=== PATIENT | female | born 1945 | race Caucasian/White ===

== ENCOUNTER → 2017-10-13 08:34 | Outpatient (CLI) | payer MEDICARE, OTHER, SELFPAY ==
[2017-10-13 09:22] LABS: Add Manual Diff / Slide Review NO; Basophils Percent Auto 0.8 % (0-2); Hematocrit 42.1 % (36-46); Hemoglobin 14.4 g/dL (12.0-16.0); Lymphocytes Percent Auto 16.7 % (25-40); Mean Corpuscular HGB Conc 34.2 % (30-36); Mean Corpuscular Hemoglobin 32.8 PG (26-34); Mean Corpuscular Volume 95.9 fL (80-100); Monocytes Percent Auto 6.3 % (3-14); Neutrophils Absolute Auto 4700 /uL (3000-5900); Neutrophils Percent Auto 75.2 % (50-75); Platelet Count 189 X10^3/uL (150-400); Red Blood Cell Count 4.39 X10^6/uL (4.0-5.2); Red Cell Distribution Width 13.5 % (11.6-14.8); White Blood Cell Count 6.2 X10^3/uL (4.5-11.0)
[2017-10-13 09:45] LABS: Alanine Aminotransferase 13 IU/L (9-52); Albumin 4.2 g/dL (3.5-5.0); Albumin Globulin Ratio 1.3 (1.0-2.8); Alkaline Phosphatase 62 U/L (38-126); Aspartate Aminotransferase 14 IU/L (14-36); BUN Creatinine Ratio 23.6 (6-22); Blood Urea Nitrogen 33 mg/dL (7-17); Calcium 8.9 mg/dL (8.4-10.2); Carbon Dioxide 29 mmol/L (22-32); Chloride 103 mmol/L (98-107); Cholesterol 217 mg/dL (140-199); Estimated Glomerular Filt Rate 36.9 mL/min (>60); Globulin 3.3 g/dL (1.7-4.1); Glucose 97 mg/dL (80-110); HDL Cholesterol 49 mg/dL (40-60); HEMOLYSIS < 15 (0-50); LDL Cholesterol Calculated 144 mg/dL (<100); Potassium 3.8 mmol/L (3.4-5.1); Sodium 142 mmol/L (137-145); Total Protein 7.5 g/dL (6.3-8.2); Triglycerides 118 mg/dL (35-150)
[2017-10-13 10:00] LABS: Free T4, Direct Thyroxine 1.19 ng/dL (0.78-2.19)
== END ==
PROVIDERS: Family Provider Family Medicine; PCP Family Medicine; Visit Provider Family Medicine
DX: E03.9 Hypothyroidism, unspecified (principal); N18.9 Chronic kidney disease, unspecified
CPT/HCPCS: 36415; 80053; 80061; 84439; 85025

== ENCOUNTER → 2017-12-01 13:00 | Outpatient (CLI) | payer MEDICARE, OTHER, SELFPAY ==
--- NOTE | 2017-12-01 | DI.MG.S_ITS ---
BILATERAL DIGITAL SCREENING MAMMOGRAM 3D/2D WITH CAD: 12/01/2017 CLINICAL: Routine screening. Comparison is made to exams dated: 10/20/2016 mammogram, 10/20/2015 mammogram, and 10/13/2014 mammogram - [facility]. The tissue of both breasts is heterogeneously dense. This may lower the sensitivity of mammography. Current study was also evaluated with a Computer Aided Detection (CAD) system. There is a 0.6 cm span of grouped linear calcifications in the left breast middle depth outer region seen on the craniocaudal view only. No other significant masses, calcifications, or other findings are seen in either breast. IMPRESSION: INCOMPLETE: NEEDS ADDITIONAL IMAGING EVALUATION The grouped linear calcifications in the left breast are indeterminate. Additional views with possible ultrasound are recommended. This exam was interpreted at Station ID: [id number]. NOTE: For mammograms, a report in lay terms will be sent to the patient. Approximately 15% of breast malignancies will not be visualized mammographically. In the management of a palpable breast mass, a negative mammogram must not discourage biopsy of a clinically suspicious lesion. Electronically Signed By: Salvador Alex M.D. ecl/:12/01/2017 20:41:43 copy to: Donna Toussaitn M.D. letter sent: Additional Imaging Needed ACR BI-RADS Category 0: Incomplete 3340F
== END ==
PROVIDERS: PCP Family Medicine; Visit Provider Family Medicine
DX: Z12.31 Encounter for screening mammogram for malignant neoplasm of breast (principal)
CPT/HCPCS: 77063; 77067

== ENCOUNTER → 2017-12-27 14:30 | Outpatient (CLI) | payer MEDICARE, OTHER, SELFPAY ==
--- NOTE | 2017-12-27 14:33 | DI.US.S_ITS ---
ULTRASOUND OF LEFT BREAST: 12/27/2017 CLINICAL: Follow up from addtional views. Comparison is made to exams dated: 12/27/2017 mammogram, 12/01/2017 mammogram, and 10/20/2016 mammogram - [facility]. Real-time and Doppler ultrasound of the left breast were performed. Vallecillo scale images of the real-time examination were reviewed. Targeted ultrasound was performed of the lower left breast. No underlying breast mass or abnormality is identified. No ultrasound correlate for the 1.0 cm focal asymmetry seen in the lower left breast central and inferior to the nipple at posterior depth along the 6 o'clock radian on diagnostic mammography. IMPRESSION: PROBABLY BENIGN - FOLLOW-UP RECOMMENDED No ultrasound correlate for the 1.0 cm focal asymmetry seen in the lower left breast central and inferior to the nipple along the 6 o'clock radian on diagnostic mammography. A follow-up diagnostic mammogram in 6 months is recommended to demonstrate stability. This exam was interpreted at Station ID: [id number]. Electronically Signed By: Salvador Alex M.D. ecl/:12/28/2017 04:41:03 copy to: Donna Toussaint M.D. letter sent: Followup Recommended Ultrasound BI-RADS: 3 Probably benign
--- NOTE | 2017-12-27 14:33 | DI.MG.S_ITS ---
UNILATERAL LEFT DIGITAL DIAGNOSTIC MAMMOGRAM 3D/2D WITH ADDITIONAL VIEWS: 12/27/2017 CLINICAL: Additional evaluation requested from prior study. Comparison is made to exams dated: 12/01/2017 mammogram, 10/20/2016 mammogram, and 10/20/2015 mammogram - [facility]. The tissue of the left breast is heterogeneously dense. This may lower the sensitivity of mammography. Previously noted linear calcifications in the left breast middle depth outer region seen on the craniocaudal view only on comparison screening mammogram corresponds to vascular calcifications on additional views. There is a 1.0 cm focal asymmetry in the lower left breast central and inferior to the nipple along the 6 o'clock radian. No other significant masses, calcifications, or other findings are seen in the breast. IMPRESSION: INCOMPLETE: NEEDS ADDITIONAL IMAGING EVALUATION 1) Previously noted linear calcifications in the left breast middle depth outer region seen on the craniocaudal view only on comparison screening mammogram corresponds to vascular calcifications on additional views. 2) There is a 1.0 cm focal asymmetry in the lower left breast central and inferior to the nipple along the 6 o'clock radian. A targeted ultrasound is recommended for further evaluation. This exam was interpreted at Station ID: [id number]. NOTE: For mammograms, a report in lay terms will be sent to the patient. Approximately 15% of breast malignancies will not be visualized mammographically. In the management of a palpable breast mass, a negative mammogram must not discourage biopsy of a clinically suspicious lesion. Electronically Signed By: Salvador Alex M.D. ecl/:12/28/2017 04:38:35 copy to: Donna Toussaint M.D. letter sent: Additional Imaging Needed ACR BI-RADS Category 0: Incomplete 3340F
== END ==
PROVIDERS: Visit Provider Family Medicine
DX: R92.8 Other abnormal and inconclusive findings on diagnostic imaging of breast (principal)
CPT/HCPCS: 76642; 77065; G0279

== ENCOUNTER → 2018-06-27 10:33 | Outpatient (CLI) | payer MEDICARE, OTHER, SELFPAY ==
[2018-06-27 12:13] LABS: HEMOLYSIS < 15 (0-50)
[2018-06-27 12:18] LABS: Iron 134 ug/dL (37-170)
[2018-06-27 12:30] LABS: Percent Iron Saturation 44 % (15-50); Total Iron Binding Capacity 303 ug/dL (265-497); Transferrin 236 mg/dL (206-381)
[2018-06-27 13:06] LABS: Thyroid Stimulating Hormone 1.35 uIU/mL (0.47-4.68)
== END ==
PROVIDERS: PCP Family Medicine; Visit Provider Family Medicine
DX: L65.9 Nonscarring hair loss, unspecified (principal); E03.9 Hypothyroidism, unspecified
CPT/HCPCS: 36415; 82728; 83540; 83550; 84443

== ENCOUNTER → 2018-07-03 12:34 | Outpatient (CLI) | payer MEDICARE, OTHER, SELFPAY ==
--- NOTE | 2018-07-03 | DI.MG.S_ITS ---
UNILATERAL LEFT DIGITAL DIAGNOSTIC MAMMOGRAM 3D/2D SHORT-TERM FOLLOW-UP: 07/03/2018 CLINICAL: Patient returns for a 6 month follow up of the left breast. Comparison is made to exams dated: 12/27/2017 ultrasound, 12/27/2017 mammogram, and 12/01/2017 mammogram - [facility]. The tissue of left breast is heterogeneously dense. This may lower the sensitivity of mammography. There is an oval equal density asymmetry with an indistinct margin in the left breast central to the nipple posterior depth. This is not significantly changed. No other significant masses or calcifications are seen in the breast. IMPRESSION: PROBABLY BENIGN The oval equal density asymmetry in the left breast is probably benign. A follow-up in 6 months is recommended. A follow-up mammogram in 6 months is recommended to demonstrate stability at the time of screening mammograph of the right breast. This exam was interpreted at Station ID: [id number]. NOTE: For mammograms, a report in lay terms will be sent to the patient. Approximately 15% of breast malignancies will not be visualized mammographically. In the management of a palpable breast mass, a negative mammogram must not discourage biopsy of a clinically suspicious lesion. Electronically Signed By: José Farfan M.D. ddradha/:07/03/2018 13:33:16 copy to: Donna Toussaint M.D. letter sent: Followup Recommended ACR BI-RADS Category 3: Probably benign 3343F
== END ==
PROVIDERS: PCP Family Medicine; Visit Provider Family Medicine
DX: R92.8 Other abnormal and inconclusive findings on diagnostic imaging of breast (principal); N64.89 Other specified disorders of breast
CPT/HCPCS: 77065; G0279

== ENCOUNTER → 2018-09-18 12:53 | Outpatient (CLI) | payer MEDICARE, OTHER, SELFPAY ==
[2018-09-18 14:01] LABS: BUN Creatinine Ratio 21.4 (6-22); Blood Urea Nitrogen 30 mg/dL (7-17); Calcium 9.3 mg/dL (8.4-10.2); Carbon Dioxide 29 mmol/L (22-32); Chloride 101 mmol/L (98-107); Estimated Glomerular Filt Rate 36.8 mL/min (>60); Glucose 96 mg/dL (80-110); HEMOLYSIS < 15 (0-50); Potassium 4.5 mmol/L (3.4-5.1); Sodium 139 mmol/L (137-145)
[2018-09-18 15:24] LABS: Creatinine Urine Random 112.4 mg/dL
[2018-09-18 15:30] LABS: Microalbumi Creatinin Ratio Ur 25.8 ug/mg CR (<30); Microalbumin Urine Random 2.9 mg/dL (0-1.6)
== END ==
PROVIDERS: PCP Family Medicine; Visit Provider Family Medicine
DX: I10 Essential (primary) hypertension (principal)
CPT/HCPCS: 36415; 80048; 82043; 82570

== ENCOUNTER → 2018-09-28 12:35 | Outpatient (CLI) | payer MEDICARE, OTHER, SELFPAY ==
--- NOTE | 2018-09-28 12:37 | DI.MRI.S_ITS ---
PROCEDURE: MR STROKE Pre- and post-contrast brain MRI, non-contrast brain MR angiogram, pre- and postcontrast neck MR angiogram INDICATIONS: dizziness, unsteady on feet, vision changes TECHNIQUE: Brain: Noncontrast axial T1 spin echo, axial T2 fast spin echo, sagittal and axial FLAIR, coronal T2 fast spin echo, axial gradient echo, axial diffusion and ADC through the brain. After the administration of contrast, axial 3D VIBE of the cranial vasculature and brain. Brain MRA: Non-contrast 3-D time of flight MR angiogram, with multiple qyxgrdq-mnuufsakj-qesmvvidsj (MIP) reformats performed. Neck MRA: Axial and sagittal TruFISP through the neck. Coronal dynamic MR angiogram during administration of contrast in the arterial and venous phases, with 3-dimenstional eircsvn-lqcvriyly-jevsqiiats (MIP) reformats constructed from subtraction images. COMPARISON: [facility], , CAROTID ARTERY DOPPLER BILAT, 09/14/2015, 10:20. FINDINGS: Image quality: Diagnostic BRAIN: CSF spaces: Ventricles are normal in size and shape. Basal cisterns are patent. No extra-axial fluid collections. Brain: No intracranial bleeds or mass effects. Vallecillo-white matter interface is normal. Diffusion weighted images show no acute ischemic insults. Brainstem appears normal. Normal intravascular flow voids are present. No abnormal intracranial enhancement. Skull and face: Calvarial marrow signal is normal. Orbits appear normal. Sinuses: Sinuses and mastoids are clear. BRAIN MR ANGIOGRAM: Anterior circulation: Intracranial internal carotid arteries are normal in size and enhancement. The flow within the paired anterior cerebral arteries is normal and symmetric. The flow within the middle cerebral arteries is normal and symmetric. The anterior communicating artery is only faintly seen. No stenoses, occlusions, or aneurysms. Posterior circulation: The visualized portions of the vertebral arteries demonstrate normal caliber, and join to form a normal appearing basilar artery. The flow within the posterior cerebral arteries is normal and symmetric. No stenoses, occlusions, or aneurysms. NECK MR ANGIOGRAM: Carotids: Great vessels demonstrate a conventional anatomy as they arise from the aortic arch. The origins of the common carotid arteries appear patent. The calibers and courses of both common carotid arteries are normal. The bifurcation regions appear normal bilaterally. The internal carotid arteries demonstrate normal course and caliber. Posterior circulation: The origins of the vertebral arteries appear patent. More superior portions of both vertebral arteries demonstrate normal course and caliber, and join to form a normal appearing basilar artery. Miscellaneous: Subclavian arteries appear patent. Pre-contrast images through the neck show no soft tissue abnormalities. IMPRESSION: BRAIN MRI: No findings of acute or subacute infarction can be seen. Note is made of age-appropriate brain parenchymal volume loss and chronic small vessel ischemic changes. No masses or abnormal enhancement can be seen. BRAIN MR ANGIOGRAM: No significant abnormality is seen of the intracranial arteries. NECK MR ANGIOGRAM: Within the arteries of the neck, no hemodynamically significant stenosis can be seen. Dictated by: Tod Connor M.D. on 09/28/2018 at 12:57 Approved by: Tod Connor M.D. on 09/28/2018 at 13:00
== END ==
PROVIDERS: PCP Family Medicine; Visit Provider Family Medicine
DX: R42 Dizziness and giddiness (principal); R26.81 Unsteadiness on feet; H53.9 Unspecified visual disturbance
CPT/HCPCS: 70548; 70553; A9579

== ENCOUNTER → 2018-12-13 12:49 | Outpatient (CLI) | payer MEDICARE, OTHER, SELFPAY ==
[2018-12-13 13:25] LABS: Add Manual Diff / Slide Review NO; Basophils Absolute Auto 100 /uL (0-100); Basophils Percent Auto 0.9 % (0-2); Eosinophils Absolute Auto 0 /uL (0-450); Eosinophils Percent Auto 0.6 % (2-4); Hemoglobin 14.2 g/dL (12.0-16.0); Lymphocytes Absolute Auto 1100 /uL (1100-4500); Lymphocytes Percent Auto 19.8 % (25-40); Mean Corpuscular HGB Conc 34.8 % (30-36); Mean Corpuscular Hemoglobin 32.7 PG (26-34); Mean Corpuscular Volume 94.2 fL (80-100); Monocytes Absolute Auto 400 /uL (0-900); Monocytes Percent Auto 6.8 % (3-14); Neutrophils Absolute Auto 4200 /uL (1500-7000); Neutrophils Percent Auto 71.9 % (50-75); Platelet Count 172 X10^3/uL (150-400); Red Blood Cell Count 4.35 X10^6/uL (4.0-5.2); Red Cell Distribution Width 14.2 % (11.6-14.8); White Blood Cell Count 5.8 X10^3/uL (4.5-11.0)
[2018-12-13 16:17] LABS: HEMOLYSIS < 15 (0-50); Iron 114 ug/dL (37-170)
[2018-12-13 16:20] LABS: Alanine Aminotransferase 15 IU/L (9-52); Albumin 4.2 g/dL (3.5-5.0); Albumin Globulin Ratio 1.4 (1.0-2.8); Alkaline Phosphatase 69 U/L (38-126); Aspartate Aminotransferase 15 IU/L (14-36); BUN Creatinine Ratio 23.8 (6-22); Blood Urea Nitrogen 31 mg/dL (7-17); Calcium 9.2 mg/dL (8.4-10.2); Carbon Dioxide 27 mmol/L (22-32); Chloride 102 mmol/L (98-107); Globulin 2.9 g/dL (1.7-4.1); Glucose 75 mg/dL (80-110); HEMOLYSIS < 15 (0-50); Potassium 4.7 mmol/L (3.4-5.1); Sodium 140 mmol/L (137-145); Total Protein 7.1 g/dL (6.3-8.2)
[2018-12-13 16:30] LABS: Percent Iron Saturation 40 % (15-50); Total Iron Binding Capacity 285 ug/dL (265-497); Transferrin 237 mg/dL (206-381)
[2018-12-13 16:34] LABS: T4 Total Thyroxine 8.45 ug/dL (5.5-11.0)
[2018-12-13 16:51] LABS: Ferritin 41.9 ng/mL (11.1-264)
[2018-12-13 17:05] LABS: Vitamin B12 > 1000 pg/mL (239-931)
== END ==
PROVIDERS: PCP Family Medicine; Visit Provider Physician Assistant
DX: L65.9 Nonscarring hair loss, unspecified (principal)
CPT/HCPCS: 36415; 80053; 82607; 82728; 83519; 83540; 83550; 84436; 85025

== ENCOUNTER → 2019-01-14 10:05 | Outpatient (CLI) | payer MEDICARE, OTHER, SELFPAY ==
--- NOTE | 2019-01-14 10:09 | DI.MG.S_ITS ---
BILATERAL DIGITAL DIAGNOSTIC MAMMOGRAM 3D/2D: 01/14/2019 CLINICAL: Patient returns for a 6 month follow up of the left breast. Due for bilateral imaging. Comparison is made to exams dated: 07/03/2018 mammogram, 12/27/2017 mammogram, and 12/01/2017 mammogram - [facility]. The tissue of both breasts is heterogeneously dense. This may lower the sensitivity of mammography. There is an oval equal density asymmetry in the left breast central to the nipple posterior depth. This is not significantly changed and was not seen on the prior ultrasound. No other significant masses, calcifications, or other findings are seen in either breast. IMPRESSION: PROBABLY BENIGN The oval equal density asymmetry in the left breast remains stable and is probably benign. A follow-up mammogram in 12 months is recommended. This exam was interpreted at Station ID: [id number]. NOTE: For mammograms, a report in lay terms will be sent to the patient. Approximately 15% of breast malignancies will not be visualized mammographically. In the management of a palpable breast mass, a negative mammogram must not discourage biopsy of a clinically suspicious lesion. Electronically Signed By: Chava Lopez M.D. aty/:01/14/2019 10:58:58 copy to: Donna Toussaint M.D. letter sent: Followup Recommended ACR BI-RADS Category 3: Probably benign 3343F
== END ==
PROVIDERS: PCP Family Medicine; Visit Provider Family Medicine
DX: R92.8 Other abnormal and inconclusive findings on diagnostic imaging of breast (principal); N64.89 Other specified disorders of breast
CPT/HCPCS: 77066; G0279

== ENCOUNTER → 2019-10-18 08:02 | Outpatient (CLI) | payer MEDICARE, OTHER, SELFPAY ==
[2019-10-18 09:37] LABS: Add Manual Diff / Slide Review NO; Basophils Absolute Auto 100 /uL (0-100); Basophils Percent Auto 1.1 % (0-2); Eosinophils Absolute Auto 100 /uL (0-450); Eosinophils Percent Auto 1.5 % (2-4); Hematocrit 39.6 % (36-46); Hemoglobin 13.2 g/dL (12.0-16.0); Lymphocytes Absolute Auto 1300 /uL (1100-4500); Lymphocytes Percent Auto 21.9 % (25-40); Mean Corpuscular HGB Conc 33.4 % (30-36); Mean Corpuscular Hemoglobin 31.5 PG (26-34); Mean Corpuscular Volume 94.2 fL (80-100); Monocytes Absolute Auto 400 /uL (0-900); Monocytes Percent Auto 6.2 % (3-14); Neutrophils Absolute Auto 4200 /uL (1500-7000); Neutrophils Percent Auto 69.3 % (50-75); Platelet Count 186 X10^3/uL (150-400); Red Cell Distribution Width 13.2 % (11.6-14.8)
[2019-10-18 09:52] LABS: Alanine Aminotransferase 10 IU/L (<35); Albumin Globulin Ratio 1.5 (1.0-2.8); Alkaline Phosphatase 62 U/L (38-126); Aspartate Aminotransferase 14 IU/L (14-36); BUN Creatinine Ratio 20.6 (6-22); Bilirubin Total 1.1 mg/dL (0.2-1.3); Blood Urea Nitrogen 29 mg/dL (7-17); Calcium 8.8 mg/dL (8.4-10.2); Carbon Dioxide 29 mmol/L (22-32); Chloride 102 mmol/L (98-107); Cholesterol 194 mg/dL (140-199); Estimated Glomerular Filt Rate 36.4 mL/min (>60); Globulin 2.7 g/dL (1.7-4.1); Glucose 93 mg/dL (80-110); HDL Cholesterol 48 mg/dL (40-60); HEMOLYSIS < 15 (0-50); LDL Cholesterol Calculated 121 mg/dL (<100); Potassium 4.4 mmol/L (3.4-5.1); Sodium 136 mmol/L (137-145); Total Protein 6.7 g/dL (6.3-8.2); Triglycerides 124 mg/dL (35-150)
[2019-10-18 10:14] LABS: Thyroid Stimulating Hormone < 0.015 uIU/mL (0.47-4.68)
[2019-10-18 10:30] LABS: Creatinine Urine Random 96.7 mg/dL
[2019-10-18 10:31] LABS: Microalbumi Creatinin Ratio Ur 19.6 ug/mg CR (<30); Microalbumin Urine Random 1.9 mg/dL (0-1.6)
== END ==
PROVIDERS: PCP Family Medicine; Referring Provider Family Medicine; Visit Provider Family Medicine
DX: E03.9 Hypothyroidism, unspecified (principal); I10 Essential (primary) hypertension; N18.9 Chronic kidney disease, unspecified; Z86.19 Personal history of other infectious and parasitic diseases
CPT/HCPCS: 36415; 80053; 80061; 82043; 82570; 84443; 85025

== ENCOUNTER → 2019-12-09 08:41 | Outpatient (CLI) | payer MEDICARE, OTHER, SELFPAY ==
[2019-12-09 12:08] LABS: Free T3, Triiodothyronine Free 2.62 pg/mL (2.77-5.27); Free T4, Direct Thyroxine 1.57 ng/dL (0.78-2.19)
[2019-12-09 12:22] LABS: Thyroid Stimulating Hormone 0.997 uIU/mL (0.47-4.68)
== END ==
PROVIDERS: PCP Family Medicine; Referring Provider Family Medicine; Visit Provider Family Medicine
DX: E03.9 Hypothyroidism, unspecified (principal)
CPT/HCPCS: 36415; 84439; 84443; 84481

== ENCOUNTER → 2019-12-31 10:30 | Outpatient (CLI) | payer MEDICARE, OTHER, SELFPAY ==
--- NOTE | 2019-12-31 10:32 | DI.RAD.S_ITS ---
PROCEDURE: XR LUMBAR SPINE 2-3V INDICATIONS: back stiffness TECHNIQUE: 3 views of the lumbar spine were acquired. COMPARISON: None. FINDINGS: Bones: 5 [id number] vertebrae are present. There is normal bony alignment. Moderate to severe disc space narrowing is present at L2-3, L5-S1. Bridging anterior osteophytes are present at L2-3, L3-4. Moderate foraminal narrowing is noted at L5-S1. No vertebral body compression fractures. No suspicious bony lesions. Soft tissues: Overlying bowel gas pattern is normal. No suspicious soft tissue calcifications. IMPRESSION: Degenerative changes as above. Dictated by: Risa Cooper M.D. on 12/31/2019 at 16:18 Approved by: Risa Cooper M.D. on 12/31/2019 at 16:19
--- NOTE | 2019-12-31 10:32 | DI.RAD.S_ITS ---
PROCEDURE: XR SACRUM COCCYX MIN 2V INDICATIONS: back stiffness TECHNIQUE: 3 views of the sacrum and coccyx acquired. COMPARISON: None. FINDINGS: Bones: No fractures or dislocations. No suspicious bony lesions. Soft tissues: Visualized bowel gas pattern is normal. No suspicious soft tissue densities. IMPRESSION: No visualized acute fracture or dislocation. However, if clinical concern and/or pain persist, short interval imaging followup in 7-10 days is recommended, as occult injury cannot be definitively excluded. Dictated by: Risa Cooper M.D. on 12/31/2019 at 16:19 Approved by: Risa Cooper M.D. on 12/31/2019 at 16:19
== END ==
PROVIDERS: PCP Family Medicine; Referring Provider Family Medicine; Visit Provider Family Medicine
DX: M54.5 Low back pain (principal); M47.816 Spondylosis without myelopathy or radiculopathy, lumbar region; M53.80 Other specified dorsopathies, site unspecified
CPT/HCPCS: 72100; 72220

== ENCOUNTER → 2020-01-11 14:55 | Outpatient (CLI) | payer MEDICARE, OTHER, SELFPAY ==
--- NOTE | 2020-01-11 15:52 | DI.MRI.S_ITS ---
PROCEDURE: MR LUMBAR SPINE WO CON INDICATIONS: worsening low back pain TECHNIQUE: Noncontrast sagittal T1 spin echo and T2 fast echo, sagittal STIR, axial T1 and T2 fast spin echo through the lumbar spine. In cases with scoliosis, additional coronal T2 fast spin echo may be performed. COMPARISON: [facility], CR, XR LUMBAR SPINE 2-3V, 12/31/2019, 9:30. FINDINGS: Image quality: Excellent. Alignment and Curvature: 5 lumbar type vertebral bodies are present by plain film. There is mild grade 1 retrolisthesis of L1 on L2, L2 on L3, and L3 on L4. Bone Marrow: Marrow is of normal overall signal. No acute vertebral body compression fractures. Minimal reactive signal within the endplates adjacent to the L1-L2, L2-L3, L3-L4, L4-L5, and L5-S1 intervertebral discs. Spinal Cord: Conus medullaris terminates at the lower L1 level. Visualized cord demonstrates normal signal and size. Paraspinous Soft Tissues: No paravertebral masses. L1-L2: Mild disc height loss and desiccation. Mild diffuse disc bulge. Mild facet and ligamentum flavum hypertrophy. Mild epidural lipomatosis. Mild canal stenosis. No foraminal stenosis. L2-L3: Moderate disc height loss and desiccation. Mild diffuse disc bulge. Mild facet and ligamentum flavum hypertrophy. Mild epidural lipomatosis. Mild canal stenosis. Mild bilateral foraminal stenosis. L3-L4: Moderate disc height loss and desiccation. Mild diffuse disc bulge. Mild facet and ligamentum flavum hypertrophy. Mild epidural lipomatosis. Mild canal stenosis. Mild bilateral foraminal stenosis. L4-L5: Moderate disc height loss and desiccation. Mild diffuse disc bulge. Mild facet and ligamentum flavum hypertrophy. Moderate canal stenosis. Mild bilateral foraminal stenosis. L5-S1: Mild disc height loss and desiccation. Mild diffuse disc bulge. Mild facet hypertrophy bilaterally. Mild canal stenosis. Mild bilateral foraminal stenosis. IMPRESSION: 1. Multilevel degenerative disc and facet disease, as well as ligamentum flavum hypertrophy and epidural lipomatosis. 2. Multilevel canal stenosis, worst at L4-L5, where there is moderate canal stenosis. 3. Mild multilevel foraminal stenosis. Dictated by: Andrew eRnner M.D. on 01/13/2020 at 15:17 Approved by: Andrew Renner M.D. on 01/13/2020 at 15:21
== END ==
PROVIDERS: PCP Family Medicine; Referring Provider Family Medicine; Visit Provider Family Medicine
DX: M54.5 Low back pain (principal); M51.36 Other intervertebral disc degeneration, lumbar region; M51.37 Other intervertebral disc degeneration, lumbosacral region; M48.061 Spinal stenosis, lumbar region without neurogenic claudication; M48.07 Spinal stenosis, lumbosacral region; E88.2 Lipomatosis, not elsewhere classified
CPT/HCPCS: 72148

== ENCOUNTER → 2020-01-15 13:23 | Outpatient (CLI) | payer MEDICARE, OTHER, SELFPAY ==
--- NOTE | 2020-01-15 13:28 | DI.MG.S_ITS ---
BILATERAL DIGITAL DIAGNOSTIC MAMMOGRAM 3D/2D SHORT-TERM FOLLOW-UP: 01/15/2020 CLINICAL: Short term follow up of the left breast, due for bilateral imaging. Comparison is made to exams dated: 01/14/2019 mammogram, 07/03/2018 mammogram, 12/27/2017 mammogram, and 12/01/2017 mammogram - [facility]. The tissue of both breasts is heterogeneously dense. This may lower the sensitivity of mammography. There is an oval equal density asymmetry in the left breast central to the nipple posterior depth. This is not significantly changed and was not seen on the prior ultrasound. No other significant masses, calcifications, or other findings are seen in either breast. IMPRESSION: BENIGN The oval equal density asymmetry in the left breast is probably benign. There is no mammographic evidence of malignancy. Return to annual screening schedule is recommended. This exam was interpreted at Station ID: [id number]. NOTE: For mammograms, a report in lay terms will be sent to the patient. Approximately 15% of breast malignancies will not be visualized mammographically. In the management of a palpable breast mass, a negative mammogram must not discourage biopsy of a clinically suspicious lesion. Electronically Signed By: Elmer Hoskins M.D., jr/joy:01/15/2020 14:16:51 letter sent: Normal Exam ACR BI-RADS Category 2: Benign Finding(s) [id number]
== END ==
PROVIDERS: PCP Family Medicine; Referring Provider Family Medicine; Visit Provider Family Medicine
DX: R92.8 Other abnormal and inconclusive findings on diagnostic imaging of breast (principal); N64.89 Other specified disorders of breast
CPT/HCPCS: 77066; G0279

== ENCOUNTER → 2020-01-29 17:32 | Outpatient (CLI) | payer MEDICARE, OTHER, SELFPAY ==
--- NOTE | 2020-01-29 17:33 | DI.MRI.S_ITS ---
PROCEDURE: MR HEAD/BRAIN WO CON INDICATIONS: dizziness, balance issues TECHNIQUE: Non-contrast axial T1 spin echo, axial T2 fast spin echo, sagittal and axial FLAIR, coronal T2 fast spin echo, axial gradient echo, axial diffusion and ADC through the brain. COMPARISON: [facility], MR, MR STROKE, 09/28/2018, 12:41. FINDINGS: Image quality: Excellent. CSF spaces: Ventricles appear symmetric in size and shape. Basal cisterns are patent. No extra-axial fluid collections. Brain: No intracranial bleeds or mass effects. There is cerebral volume loss for age. There are periventricular and deep white matter chronic small vessel ischemic changes. Brainstem appears normal. Diffusion-weighted images show no acute ischemic insults. No chronic ischemic insults. Normal intravascular flow voids are present. Skull and face: Calvarial bone marrow is normal in signal. Orbits are normal. Sinuses: Sinuses and mastoids are clear. IMPRESSION: Age-appropriate brain MRI. Mild volume loss and small vessel ischemic change. No acute stroke, hemorrhage, or mass. Dictated by: Charly Pitts M.D. on 01/29/2020 at 18:56 Approved by: Charly Pitts M.D. on 01/29/2020 at 18:58
== END ==
PROVIDERS: PCP Family Medicine; Referring Provider Family Medicine; Visit Provider Family Medicine
DX: R42 Dizziness and giddiness (principal); R26.89 Other abnormalities of gait and mobility
CPT/HCPCS: 70551

== ENCOUNTER 2020-02-05 10:30 | Outpatient (RCR) | payer MEDICARE, OTHER, SELFPAY ==
--- NOTE | 2019-11-12 17:30 | PT.OPPOC ---
Physical, Occupational & Speech Therapy At [facility] Current Diagnoses Stiffness of unspecified joint, not elsewhere classified (11/12/19) Stiffness of unspecified hip, not elsewhere classified (11/12/19) Low back pain (11/12/19) Visit Care Team Role Provider Type Donna Toussaint MD Attending Provider Physician Primary Care Provider Referring Provider Specialty: [facility] Address: [address] [place] [address], [place], [address] Email: [email or web address] Plan Of Care PT-OP-T Assessment and Plan Start: 11/12/19 17:31 Freq: Status: Active Protocol: Document 11/12/19 16:45 DCW (Rec: 11/13/19 09:45 DCW [id number]) Physical Therapy Assessment Rehab Potential Rehabilitation Potential Good Evaluation Complexity Number of Personal Factors/Comorbidities 1-2 Number of Body Systems Impaired 3 Clinical Presentation at Evaluation Evolving Impairments Impairments Functional Mobility,Pain, Posture,ROM,Tone Goals Three Impairment Pt presents with hypertonia along lumbar paraspinals and piriformis Supervisor Photoengraving Goal (LTG) Pt to display mild tone in paraspinals and piriformis Two Impairment Pt exhibits negligible lumbar spine mobility Short Term Goal (STG) Pt to increase lumbar flexion ROM to 10? STG Duration 12/24/19 Supervisor Photoengraving Goal (LTG) Pt to demonstrate enough improved ROM to put lotion on her right lateral ankle LTG Duration 02/07/20 One Impairment Pt does not have an appropriate home exercise program Short Term Goal (STG) Pt to be independent and compliant with an appropriate HEP STG Duration 12/13/19 Assessment Summary Assessment Pt presents with no notable deficits other than just an extreme stiffness in her lumbar spine. Presents with good strength, minimal tenderness to palpation. Pt has significant immobility in her lumbar spine, both with active ROM and with palpation. Pt should benefit from skilled therapy focusing on improving flexibility, ROM, manual therapy, and modalities to hopefully help decrease her minimal areas of tone. Based on pt improvement, pt may benefit from imaging in the future to help determine if there is a natural fusion of her vertebrae occurring. Physical Therapy Plan Frequency and Duration Frequency of Treatment 2x/Week Duration of Treatment 12 weeks Plan of Care Start Date 11/12/19 Plan of Care End Date 02/03/20 Therapeutic Interventions Therapeutic Interventions Home Exercise Program,Joint Mobilizations,Manual Therapy, Patient/Caregiver Education, Self-Care/Home Management,Soft Tissue Mobilization, Therapeutic Exercises Modalities Cold Pack/Ice Massage,Hot Packs,Ultrasound Next Visit Focus/Plan Next Note Type Treatment Note Next Visit Plan Manual therapy, modalities, flexibility Plan of Care Dates Plan of Care Start Date 11/12/19 Plan of Care End Date 02/03/20 Electronically Signed by: Marquis Munoz, PT 11/13/19 0945 Please Sign and Return: I have reviewed this Plan of Care and certify that the skilled therapy services above are required to meet the patient?s needs. Physician Signature Date Printed Name and Credentials Clinical Instructor Signature Printed Name and Credentials
--- NOTE | 2019-11-12 17:30 | PT.OIE ---
Current Diagnoses Stiffness of unspecified joint, not elsewhere classified (11/12/19) Stiffness of unspecified hip, not elsewhere classified (11/12/19) Low back pain (11/12/19) Past Medical History (Last Reviewed 10/10/17 @ 16:08 by Marily Forte MD) Hayfever (Chronic 1979) Hepatitis C (Chronic 1991) History of fractured pelvis (Resolved 2006) Hypothyroidism (Chronic 1966) Recurrent sinusitis (Resolved 1979) Tinnitus (Chronic 1991) Past Surgical History (Last Reviewed 10/10/17 @ 16:08 by Marily Forte MD) Anesthesia (Resolved) History of cosmetic surgery (Resolved 1981) History of facial surgery (Resolved 1979) History of liver biopsy (Resolved 1993) History of thyroidectomy (Resolved 1968) Status post left foot surgery (Resolved 2008) Status post tubal ligation (Resolved 1975) Visit Care Team Role Provider Type Donna Toussaint MD Attending Provider Physician Primary Care Provider Referring Provider Specialty: [facility] Practice Address: [address] [place] [address] Email: [email or web address] Physical Therapy Initial Evaluation PT-OP-A Visit Information Start: 11/12/19 17:31 Freq: Status: Active Protocol: Document 11/12/19 16:45 DCW (Rec: 11/12/19 17:55 DCW [id number]) Out-Patient Physical Therapy Visit Information Visit Information Visit Type Initial Evaluation Visit Start Time 16:45 Visit Stop Time 17:30 Total Visit Minutes 45 Visit Number 1 Number of MANAGER SURGERY Visits 0 Evaluation Information Evaluation Date 11/12/19 PT-OP-B Current Condition Start: 11/12/19 17:31 Freq: Status: Active Protocol: Document 11/12/19 16:45 DCW (Rec: 11/12/19 17:55 DCW [id number]) Current Condition History of Current Condition Onset Date 2006, worsening over last month Current Complaints Low back pain, severe stiffness in lumbar spine and hips History of Current Condition Pt is a 74 year old female presenting with a history of low back and hip pain. Pt notes that she fell down stairs in 2006, fracturing her pelvis in three places. Pt has had some progressing stiffness in the years since then, but over the last month, has become much worse. 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 Treatment Goals Patient/Caregiver Goals I'm very much troubled from the stiffness in my back. PT-OP-C Subjective Start: 11/12/19 17:31 Freq: Status: Active Protocol: Document 11/12/19 16:45 DCW (Rec: 11/12/19 17:55 DCW [id number]) OP-PT Subjective Patient Comments Patient Comments I can't really bend down far enough or lift my right leg enough to shave the outside of my leg or put lotion on it. It's really starting to limit what I can do. Patient Reported Progress Worse Patient Questionnaires Oswestry Low Back Index Oswestry Score 24% OP-PT Pain Assessment Location Left Lower Back Intensity 4 Scale Used Numeric (0 - 10) Description Sharp,Stabbing Frequency No Pattern PT-OP-F Manual Assessment Start: 11/12/19 17:31 Freq: Status: Active Protocol: Document 11/12/19 16:45 DCW (Rec: 11/12/19 17:55 DCW [id number]) Manual Assessments Soft Tissue Assessment Soft Tissue Mobility Assessment Moderate tone throughout bilateral paraspinals, piriformis, no real complaints of tenderness to palpation Joint Mobility Assessment Joint Mobility Assessment Severe hypomobility of lumbar spine upon palpation PT-OP-K Range of Motion Start: 11/12/19 17:31 Freq: Status: Active Protocol: Document 11/12/19 16:45 DCW (Rec: 11/13/19 09:32 DCW [id number]) Lumbar Spine Range of Motion Lumbar Spine Active Degrees Testing Position Standing Flexion 0 Extension 2 ROM Limitations Bony Restriction Comments Patient's flexion ROM is entirely from hips, does no exhibit any vertebral movement when bending forward PT-OP-L Special Tests Start: 11/12/19 17:31 Freq: Status: Active Protocol: Document 11/12/19 16:45 DCW (Rec: 11/13/19 09:32 DCW [id number]) Special Tests Lumbar Spine Special Tests Double Knee to Chest Test Results Causes bilateral low back pain Slump Test Results Negative Vertical Spine Loading Test Results Negative Straight Leg Raise Test Results Positive: Ipsilateral pain bilaterally Manual Traction Test Results Negative Hip Special Tests MADDIE Test Results Minimal hip mobility PT-OP-M Strength Start: 11/12/19 17:31 Freq: Status: Active Protocol: Document 11/12/19 16:45 DCW (Rec: 11/13/19 09:32 DCW [id number]) Trunk Strength Trunk Manual Muscle Testing Core Stabilization Excellent core contraction, able to hold vs leg movement, begins to fatigue. 4/5 Hip Strength Hip Manual Muscle Testing Right Flexion (L2) 4+ Good+ Abduction 5 Normal Adduction 5 Normal External Rotation 4+ Good+ Internal Rotation 5 Normal Left Flexion (L2) 4+ Good+ Abduction 5 Normal Adduction 5 Normal External Rotation 4+ Good+ Internal Rotation 5 Normal Knee Strength Knee Manual Muscle Testing Right Flexion (S2) 5 Normal Extension (L3) 5 Normal Left Flexion (S2) 5 Normal Extension (L3) 5 Normal Ankle/Foot Strength Ankle and Foot Manual Muscle Testing Right Dorsiflexion (L4) 5 Normal Plantarflexion (S1) 5 Normal Left Dorsiflexion (L4) 5 Normal Plantarflexion (S1) 5 Normal PT-OP-Q Treatments Start: 11/12/19 17:31 Freq: Status: Active Protocol: Document 11/12/19 16:45 DCW (Rec: 11/12/19 17:55 DCW [id number]) Therapeutic Exercises Sitting Exercises 2 Sitting Exercise Name Seated trunk rotation 1 Sitting Exercise Name Seated trunk flexion PT-OP-T Assessment and Plan Start: 11/12/19 17:31 Freq: Status: Active Protocol: Document 11/12/19 16:45 DCW (Rec: 11/13/19 09:45 DCW [id number]) Physical Therapy Assessment Rehab Potential Rehabilitation Potential Good Evaluation Complexity Number of Personal Factors/Comorbidities 1-2 Number of Body Systems Impaired 3 Clinical Presentation at Evaluation Evolving Impairments Impairments Functional Mobility,Pain, Posture,ROM,Tone Goals Three Impairment Pt presents with hypertonia along lumbar paraspinals and piriformis [employer] Worker Goal (LTG) Pt to display mild tone in paraspinals and piriformis Two Impairment Pt exhibits negligible lumbar spine mobility Short Term Goal (STG) Pt to increase lumbar flexion ROM to 10? STG Duration 12/24/19 Correction Goal (LTG) Pt to demonstrate enough improved ROM to put lotion on her right lateral ankle LTG Duration 02/07/20 One Impairment Pt does not have an appropriate home exercise program Short Term Goal (STG) Pt to be independent and compliant with an appropriate HEP STG Duration 12/13/19 Assessment Summary Assessment Pt presents with no notable deficits other than just an extreme stiffness in her lumbar spine. Presents with good strength, minimal tenderness to palpation. Pt has significant immobility in her lumbar spine, both with active ROM and with palpation. Pt should benefit from skilled therapy focusing on improving flexibility, ROM, manual therapy, and modalities to hopefully help decrease her minimal areas of tone. Based on pt improvement, pt may benefit from imaging in the future to help determine if there is a natural fusion of her vertebrae occurring. Physical Therapy Plan Frequency and Duration Frequency of Treatment 2x/Week Duration of Treatment 12 weeks Plan of Care Start Date 11/12/19 Plan of Care End Date 02/03/20 Therapeutic Interventions Therapeutic Interventions Home Exercise Program,Joint Mobilizations,Manual Therapy, Patient/Caregiver Education, Self-Care/Home Management,Soft Tissue Mobilization, Therapeutic Exercises Modalities Cold Pack/Ice Massage,Hot Packs,Ultrasound Next Visit Focus/Plan Next Note Type Treatment Note Next Visit Plan Manual therapy, modalities, flexibility
--- NOTE | 2019-11-14 17:34 | PT.OTN ---
Current Diagnoses Stiffness of unspecified joint, not elsewhere classified (11/14/19) Stiffness of unspecified hip, not elsewhere classified (11/14/19) Low back pain (11/14/19) Physical Therapy Treatment Note PT-OP-A Visit Information Start: 11/12/19 17:31 Freq: Status: Active Protocol: Document 11/14/19 16:45 DCW (Rec: 11/14/19 17:34 DCW [id number]) Out-Patient Physical Therapy Visit Information Visit Information Visit Type Treatment Note Visit Start Time 16:45 Visit Stop Time 17:30 Total Visit Minutes 45 Visit Number 2 Number of FRONT SIGHT ATTACHER Visits 0 Evaluation Information Evaluation Date 11/12/19 PT-OP-B Current Condition Start: 11/12/19 17:31 Freq: Status: Active Protocol: Document 11/12/19 16:45 DCW (Rec: 11/12/19 17:55 DCW [id number]) Current Condition History of Current Condition Onset Date 2006, worsening over last month Current Complaints Low back pain, severe stiffness in lumbar spine and hips History of Current Condition Pt is a 74 year old female presenting with a history of low back and hip pain. Pt notes that she fell down stairs in 2006, fracturing her pelvis in three places. Pt has had some progressing stiffness in the years since then, but over the last month, has become much worse. 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 Treatment Goals Patient/Caregiver Goals I'm very much troubled from the stiffness in my back. PT-OP-C Subjective Start: 11/12/19 17:31 Freq: Status: Active Protocol: Document 11/14/19 16:45 DCW (Rec: 11/14/19 17:34 DCW [id number]) OP-PT Subjective Patient Comments Patient Comments I'm not doing too well today. I seem to be getting tighter. It was hurting to even cough this morning. PT-OP-F Manual Assessment Start: 11/12/19 17:31 Freq: Status: Active Protocol: Document 11/12/19 16:45 DCW (Rec: 11/12/19 17:55 DCW [id number]) Manual Assessments Soft Tissue Assessment Soft Tissue Mobility Assessment Moderate tone throughout bilateral paraspinals, piriformis, no real complaints of tenderness to palpation Joint Mobility Assessment Joint Mobility Assessment Severe hypomobility of lumbar spine upon palpation PT-OP-K Range of Motion Start: 11/12/19 17:31 Freq: Status: Active Protocol: Document 11/12/19 16:45 DCW (Rec: 11/13/19 09:32 DCW [id number]) Lumbar Spine Range of Motion Lumbar Spine Active Degrees Testing Position Standing Flexion 0 Extension 2 ROM Limitations Bony Restriction Comments Patient's flexion ROM is entirely from hips, does no exhibit any vertebral movement when bending forward PT-OP-L Special Tests Start: 11/12/19 17:31 Freq: Status: Active Protocol: Document 11/12/19 16:45 DCW (Rec: 11/13/19 09:32 DCW [id number]) Special Tests Lumbar Spine Special Tests Double Knee to Chest Test Results Causes bilateral low back pain Slump Test Results Negative Vertical Spine Loading Test Results Negative Straight Leg Raise Test Results Positive: Ipsilateral pain bilaterally Manual Traction Test Results Negative Hip Special Tests MADDIE Test Results Minimal hip mobility PT-OP-M Strength Start: 11/12/19 17:31 Freq: Status: Active Protocol: Document 11/12/19 16:45 DCW (Rec: 11/13/19 09:32 DCW [id number]) Trunk Strength Trunk Manual Muscle Testing Core Stabilization Excellent core contraction, able to hold vs leg movement, begins to fatigue. 4/5 Hip Strength Hip Manual Muscle Testing Right Flexion (L2) 4+ Good+ Abduction 5 Normal Adduction 5 Normal External Rotation 4+ Good+ Internal Rotation 5 Normal Left Flexion (L2) 4+ Good+ Abduction 5 Normal Adduction 5 Normal External Rotation 4+ Good+ Internal Rotation 5 Normal Knee Strength Knee Manual Muscle Testing Right Flexion (S2) 5 Normal Extension (L3) 5 Normal Left Flexion (S2) 5 Normal Extension (L3) 5 Normal Ankle/Foot Strength Ankle and Foot Manual Muscle Testing Right Dorsiflexion (L4) 5 Normal Plantarflexion (S1) 5 Normal Left Dorsiflexion (L4) 5 Normal Plantarflexion (S1) 5 Normal PT-OP-Q Treatments Start: 11/12/19 17:31 Freq: Status: Active Protocol: Document 11/14/19 16:45 DCW (Rec: 11/14/19 17:34 DCW [id number]) Gym Equipment Therapeutic Ball 2 Exercise Details Trunk flexion Ball Size/Color Red - 75 Body Position Seated Comments Forward and lateral flexion 1 Exercise Details Low Trunk Rotation Ball Size/Color Red - 55 cm Body Position Supine Therapeutic Exercises Prone Exercises 2 Prone Exercise Name Child's pose 1 Prone Exercise Name Thread the Needle Side bilateral Sidelying Exercises 1 Sidelying Exercise Name Open book Side bilateral Manual Therapy Treatment Soft Tissue Mobilization 1 Body Location Lumbar Paraspinals Mobilization Type Sustained Pressure Intensity/Depth Superficial Body Position Prone Joint Mobilizations Lumbar Spine Joint L1-5 Direction P->A Grade III Body Position Prone PT-OP-T Assessment and Plan Start: 11/12/19 17:31 Freq: Status: Active Protocol: Document 11/14/19 16:45 DCW (Rec: 11/14/19 17:34 DCW [id number]) Physical Therapy Assessment Impairments Impairments Functional Mobility,Pain, Posture,ROM,Tone Goals Three Impairment Pt presents with hypertonia along lumbar paraspinals and piriformis Dairy Cattle Farm Worker Goal (LTG) Pt to display mild tone in paraspinals and piriformis LTG Duration 02/07/20 Two Impairment Pt exhibits negligible lumbar spine mobility Short Term Goal (STG) Pt to increase lumbar flexion ROM to 10? STG Duration 12/24/19 Dairy Cattle Farm Worker Goal (LTG) Pt to demonstrate enough improved ROM to put lotion on her right lateral ankle LTG Duration 02/07/20 One Impairment Pt does not have an appropriate home exercise program Short Term Goal (STG) Pt to be independent and compliant with an appropriate HEP STG Duration 12/13/19 Assessment Summary Assessment Pt continues to exhibit extremely immobile lumbar vertebrae, with flexion and rotation. Pt tolerated treatment fairly well, but did have difficulty in quadruped due to knee pain. Physical Therapy Plan Frequency and Duration Frequency of Treatment 2x/Week Duration of Treatment 12 weeks Plan of Care Start Date 11/12/19 Plan of Care End Date 02/03/20 Therapeutic Interventions Therapeutic Interventions Home Exercise Program,Joint Mobilizations,Manual Therapy, Patient/Caregiver Education, Self-Care/Home Management,Soft Tissue Mobilization, Therapeutic Exercises Modalities Cold Pack/Ice Massage,Hot Packs,Ultrasound Next Visit Focus/Plan Next Note Type Treatment Note Next Visit Plan Manual therapy, modalities, flexibility
--- NOTE | 2019-11-21 14:35 | PT.OTN ---
Current Diagnoses Stiffness of unspecified joint, not elsewhere classified (11/21/19) Stiffness of unspecified hip, not elsewhere classified (11/21/19) Low back pain (11/21/19) Physical Therapy Treatment Note PT-OP-A Visit Information Start: 11/12/19 17:31 Freq: Status: Active Protocol: Document 11/21/19 13:48 SP (Rec: 11/21/19 15:45 SP [id number]) Out-Patient Physical Therapy Visit Information Visit Information Visit Type Treatment Note Visit Start Time 13:48 Visit Stop Time 14:35 Total Visit Minutes 47 Visit Number 3 Number of TOBACCO PRIMER MACHINE OPERATOR Visits 1 PT-OP-B Current Condition Start: 11/12/19 17:31 Freq: Status: Active Protocol: Document 11/12/19 16:45 DCW (Rec: 11/12/19 17:55 DCW [id number]) Current Condition History of Current Condition Onset Date 2006, worsening over last month Current Complaints Low back pain, severe stiffness in lumbar spine and hips History of Current Condition Pt is a 74 year old female presenting with a history of low back and hip pain. Pt notes that she fell down stairs in 2006, fracturing her pelvis in three places. Pt has had some progressing stiffness in the years since then, but over the last month, has become much worse. 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 Treatment Goals Patient/Caregiver Goals I'm very much troubled from the stiffness in my back. PT-OP-C Subjective Start: 11/12/19 17:31 Freq: Status: Active Protocol: Document 11/21/19 13:48 SP (Rec: 11/21/19 15:45 SP [id number]) OP-PT Subjective Patient Comments Patient Comments I am still really tight in L > RLB only able to shave one side of her L leg and pushing off chair to stand hurst RLB. PT-OP-F Manual Assessment Start: 11/12/19 17:31 Freq: Status: Active Protocol: Document 11/12/19 16:45 DCW (Rec: 11/12/19 17:55 DCW [id number]) Manual Assessments Soft Tissue Assessment Soft Tissue Mobility Assessment Moderate tone throughout bilateral paraspinals, piriformis, no real complaints of tenderness to palpation Joint Mobility Assessment Joint Mobility Assessment Severe hypomobility of lumbar spine upon palpation PT-OP-K Range of Motion Start: 11/12/19 17:31 Freq: Status: Active Protocol: Document 11/12/19 16:45 DCW (Rec: 11/13/19 09:32 DCW [id number]) Lumbar Spine Range of Motion Lumbar Spine Active Degrees Testing Position Standing Flexion 0 Extension 2 ROM Limitations Bony Restriction Comments Patient's flexion ROM is entirely from hips, does no exhibit any vertebral movement when bending forward PT-OP-L Special Tests Start: 11/12/19 17:31 Freq: Status: Active Protocol: Document 11/12/19 16:45 DCW (Rec: 11/13/19 09:32 DCW [id number]) Special Tests Lumbar Spine Special Tests Double Knee to Chest Test Results Causes bilateral low back pain Slump Test Results Negative Vertical Spine Loading Test Results Negative Straight Leg Raise Test Results Positive: Ipsilateral pain bilaterally Manual Traction Test Results Negative Hip Special Tests MADDIE Test Results Minimal hip mobility PT-OP-M Strength Start: 11/12/19 17:31 Freq: Status: Active Protocol: Document 11/12/19 16:45 DCW (Rec: 11/13/19 09:32 DCW [id number]) Trunk Strength Trunk Manual Muscle Testing Core Stabilization Excellent core contraction, able to hold vs leg movement, begins to fatigue. 4/5 Hip Strength Hip Manual Muscle Testing Right Flexion (L2) 4+ Good+ Abduction 5 Normal Adduction 5 Normal External Rotation 4+ Good+ Internal Rotation 5 Normal Left Flexion (L2) 4+ Good+ Abduction 5 Normal Adduction 5 Normal External Rotation 4+ Good+ Internal Rotation 5 Normal Knee Strength Knee Manual Muscle Testing Right Flexion (S2) 5 Normal Extension (L3) 5 Normal Left Flexion (S2) 5 Normal Extension (L3) 5 Normal Ankle/Foot Strength Ankle and Foot Manual Muscle Testing Right Dorsiflexion (L4) 5 Normal Plantarflexion (S1) 5 Normal Left Dorsiflexion (L4) 5 Normal Plantarflexion (S1) 5 Normal PT-OP-Q Treatments Start: 11/12/19 17:31 Freq: Status: Active Protocol: Document 11/21/19 13:48 SP (Rec: 11/21/19 15:45 SP [id number]) Therapeutic Exercises Supine Exercises core march Supine Exercise Name single lift Reps/Minutes 5 reps x2 alternate BLE Comments cued PPT awareness wtih minimal movement in trunk trans ab Supine Exercise Name trng Reps/Minutes 10 sec x5 Sitting Exercises QL stretch Sitting Exercise Name leaning arm on same leg side bend Side bilateral Reps/Minutes 30 sec x2 Comments cued not round back 1 Sitting Exercise Name Seated trunk flexion Standing Exercises L/S side glide at wall Side bilateral Reps/Minutes x5 glut self STM at wall Standing Exercise Name racquetball over glut and lumbar mms's on wall Comments sustained compression and roll if tolerated Manual Therapy Treatment Soft Tissue Mobilization 1 Body Location Lumbar Paraspinals, QL, glut Mobilization Type Cross-Friction,Myofascial Release,Sustained Pressure Intensity/Depth Moderate Body Position Prone Comments over pillow, also MWM hip hike over QL and hip IR/ ER over glut PT-OP-T Assessment and Plan Start: 11/12/19 17:31 Freq: Status: Active Protocol: Document 11/21/19 13:48 SP (Rec: 11/21/19 15:45 SP [id number]) Physical Therapy Assessment Goals Three Impairment Pt presents with hypertonia along lumbar paraspinals and piriformis Penitentiary Goal (LTG) Pt to display mild tone in paraspinals and piriformis LTG Duration 02/07/20 Two Impairment Pt exhibits negligible lumbar spine mobility Short Term Goal (STG) Pt to increase lumbar flexion ROM to 10? STG Duration 12/24/19 Penitentiary Goal (LTG) Pt to demonstrate enough improved ROM to put lotion on her right lateral ankle LTG Duration 02/07/20 One Impairment Pt does not have an appropriate home exercise program Short Term Goal (STG) Pt to be independent and compliant with an appropriate HEP STG Duration 12/13/19 Assessment Summary Assessment Tx focused on core facilitation and LS mobility to decreased R LBP with report of it does feel little looser but still grabs pushing up to stand from table . Cuing and demonstration for proper form, hand outs for home assist with recall. Physical Therapy Plan Frequency and Duration Frequency of Treatment 2x/Week Duration of Treatment 12 weeks Plan of Care Start Date 11/12/19 Plan of Care End Date 10/26/20 Therapeutic Interventions Therapeutic Interventions Home Exercise Program,Joint Mobilizations,Manual Therapy, Patient/Caregiver Education, Self-Care/Home Management,Soft Tissue Mobilization, Therapeutic Exercises Modalities Cold Pack/Ice Massage,Hot Packs,Ultrasound Next Visit Focus/Plan Next Note Type Treatment Note Next Visit Plan Assessment of response to last tx: manual, core trans ab, and flexibiliy of LS. Continue per PT POC: Manual therapy, modalities, flexibility
--- NOTE | 2019-11-26 11:41 | PT.OTN ---
Current Diagnoses Stiffness of unspecified joint, not elsewhere classified (11/26/19) Stiffness of unspecified hip, not elsewhere classified (11/26/19) Low back pain (11/26/19) Physical Therapy Treatment Note PT-OP-A Visit Information Start: 11/12/19 17:31 Freq: Status: Active Protocol: Document 11/26/19 11:27 [facility] (Rec: 11/26/19 11:41 [facility] [id number]) Out-Patient Physical Therapy Visit Information Visit Information Visit Type Treatment Note Visit Start Time 09:00 Visit Stop Time 09:55 Total Visit Minutes 55 Visit Number 4 Number of EXECUTIVE COMPENSATION ANALYST Visits 0 PT-OP-B Current Condition Start: 11/12/19 17:31 Freq: Status: Active Protocol: Document 11/12/19 16:45 DCW (Rec: 11/12/19 17:55 DCW [id number]) Current Condition History of Current Condition Onset Date 2006, worsening over last month Current Complaints Low back pain, severe stiffness in lumbar spine and hips History of Current Condition Pt is a 74 year old female presenting with a history of low back and hip pain. Pt notes that she fell down stairs in 2006, fracturing her pelvis in three places. Pt has had some progressing stiffness in the years since then, but over the last month, has become much worse. 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 Treatment Goals Patient/Caregiver Goals I'm very much troubled from the stiffness in my back. PT-OP-C Subjective Start: 11/12/19 17:31 Freq: Status: Active Protocol: Document 11/26/19 11:27 [facility] (Rec: 11/26/19 11:41 [facility] [id number]) OP-PT Subjective Patient Comments Patient Comments Pt reports she is still feeling really tight in the left side of her back and she doesn't feel like the stretches are helping her yet. She also reports she likes to exercise in the pool and hasn't been able to do that since Covid pandemic began. PT-OP-F Manual Assessment Start: 08/04/20 17:31 Freq: Status: Active Protocol: Document 11/12/19 16:45 DCW (Rec: 11/12/19 17:55 DCW [id number]) Manual Assessments Soft Tissue Assessment Soft Tissue Mobility Assessment Moderate tone throughout bilateral paraspinals, piriformis, no real complaints of tenderness to palpation Joint Mobility Assessment Joint Mobility Assessment Severe hypomobility of lumbar spine upon palpation PT-OP-K Range of Motion Start: 11/12/19 17:31 Freq: Status: Active Protocol: Document 11/12/19 16:45 DCW (Rec: 11/13/19 09:32 DCW [id number]) Lumbar Spine Range of Motion Lumbar Spine Active Degrees Testing Position Standing Flexion 0 Extension 2 ROM Limitations Bony Restriction Comments Patient's flexion ROM is entirely from hips, does no exhibit any vertebral movement when bending forward PT-OP-L Special Tests Start: 11/12/19 17:31 Freq: Status: Active Protocol: Document 11/12/19 16:45 DCW (Rec: 11/13/19 09:32 DCW [id number]) Special Tests Lumbar Spine Special Tests Double Knee to Chest Test Results Causes bilateral low back pain Slump Test Results Negative Vertical Spine Loading Test Results Negative Straight Leg Raise Test Results Positive: Ipsilateral pain bilaterally Manual Traction Test Results Negative Hip Special Tests MADDIE Test Results Minimal hip mobility PT-OP-M Strength Start: 11/12/19 17:31 Freq: Status: Active Protocol: Document 11/12/19 16:45 DCW (Rec: 11/13/19 09:32 DCW [id number]) Trunk Strength Trunk Manual Muscle Testing Core Stabilization Excellent core contraction, able to hold vs leg movement, begins to fatigue. 4/5 Hip Strength Hip Manual Muscle Testing Right Flexion (L2) 4+ Good+ Abduction 5 Normal Adduction 5 Normal External Rotation 4+ Good+ Internal Rotation 5 Normal Left Flexion (L2) 4+ Good+ Abduction 5 Normal Adduction 5 Normal External Rotation 4+ Good+ Internal Rotation 5 Normal Knee Strength Knee Manual Muscle Testing Right Flexion (S2) 5 Normal Extension (L3) 5 Normal Left Flexion (S2) 5 Normal Extension (L3) 5 Normal Ankle/Foot Strength Ankle and Foot Manual Muscle Testing Right Dorsiflexion (L4) 5 Normal Plantarflexion (S1) 5 Normal Left Dorsiflexion (L4) 5 Normal Plantarflexion (S1) 5 Normal PT-OP-Q Treatments Start: 11/12/19 17:31 Freq: Status: Active Protocol: Document 11/26/19 11:27 [facility] (Rec: 11/26/19 11:41 [facility] [id number]) Therapeutic Exercises Supine Exercises isometric adduction Supine Exercise Name isometric adduction Reps/Minutes x 10 Comments pt trained to use a pillow to squeeze between her knees for rolling in bed trans ab Supine Exercise Name trng Reps/Minutes 10 sec x5 Sitting Exercises seated sidebends with table Sitting Exercise Name seated sidebends with hands in front on the table Comments pt to stretch to the right, center, left to open up sides of her lats/LB 1 Sitting Exercise Name Seated trunk flexion Comments cues to use table in front to help with lumbar flexion Manual Therapy Treatment Soft Tissue Mobilization 1 Body Location Lumbar Paraspinals, QL, glut Mobilization Type Cross-Friction,Myofascial Release,Sustained Pressure Intensity/Depth Moderate Body Position right sidelying Comments pillows between knees, MFR to the QL and left paraspinals Manual Techniques 1 Type manual iliopsoas stretch B Comments pt in sylvester test position, good tolerance for the stretch and manual release of the iliopsoas. Pt could initially feel her left side of her back with right iliopsoas stretch. PT-OP-R Modalities Start: 11/12/19 17:31 Freq: Status: Active Protocol: Document 11/26/19 11:41 [facility] (Rec: 11/26/19 11:41 [facility] [id number]) Hot Pack/Cold Pack Treatment Hot Pack Location low back Patient Position Hooklying Treatment Duration (minutes) 10 Comments legs in 90/90 degree position PT-OP-T Assessment and Plan Start: 11/12/19 17:31 Freq: Status: Active Protocol: Document 11/26/19 11:27 [facility] (Rec: 11/26/19 11:41 [facility] [id number]) Physical Therapy Assessment Assessment Summary Assessment pt very tight in her hips and iliopsoas. She has kept her self mobile with aqua aerobics both in [place] and here in [place]. However this year since Covid she has not been able to do this and I am wondering if her not being able to get in the pool to stretch her back and hips has contributed to the tightness in her back. I encouraged her to call our pool for a appointment to water walk and do her exercises. I worked on releasing her left low back and QL along with releasing her hip flexors. I gave her a hip flexor stretch for home as well. Physical Therapy Plan Frequency and Duration Frequency of Treatment 2x/Week Duration of Treatment 12 weeks Plan of Care Start Date 11/12/19 Plan of Care End Date 02/03/20 Next Visit Focus/Plan Next Note Type Treatment Note Next Visit Plan continue to work with Clementina on lumbar flexion and flexbility of her low back and hips. Assess how Clementina did with heat on her low back and legs in 90 /90 position at the end of treatment.
--- NOTE | 2019-11-29 09:00 | PT.OTN ---
Current Diagnoses Stiffness of unspecified joint, not elsewhere classified (11/29/19) Stiffness of unspecified hip, not elsewhere classified (11/29/19) Low back pain (11/29/19) Physical Therapy Treatment Note PT-OP-A Visit Information Start: 11/12/19 17:31 Freq: Status: Active Protocol: Document 11/29/19 08:19 SP (Rec: 11/29/19 08:59 SP [id number]) Out-Patient Physical Therapy Visit Information Visit Information Visit Type Treatment Note Visit Start Time 08:19 Visit Stop Time 09:00 Total Visit Minutes 41 Visit Number 5 Number of NUCLEAR PLANT TECHNICAL ADVISOR Visits 1 PT-OP-B Current Condition Start: 11/12/19 17:31 Freq: Status: Active Protocol: Document 11/12/19 16:45 DCW (Rec: 11/12/19 17:55 DCW [id number]) Current Condition History of Current Condition Onset Date 2006, worsening over last month Current Complaints Low back pain, severe stiffness in lumbar spine and hips History of Current Condition Pt is a 74 year old female presenting with a history of low back and hip pain. Pt notes that she fell down stairs in 2006, fracturing her pelvis in three places. Pt has had some progressing stiffness in the years since then, but over the last month, has become much worse. 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 Treatment Goals Patient/Caregiver Goals I'm very much troubled from the stiffness in my back. PT-OP-C Subjective Start: 11/12/19 17:31 Freq: Status: Active Protocol: Document 11/29/19 08:19 SP (Rec: 11/29/19 08:59 SP [id number]) OP-PT Subjective Patient Comments Patient Comments Pt stated I am feeling stiff in LB, just woke up and so not loosened up alot. The manual massage last tx helped alot. PT-OP-F Manual Assessment Start: 11/12/19 17:31 Freq: Status: Active Protocol: Document 11/12/19 16:45 DCW (Rec: 11/12/19 17:55 DCW [id number]) Manual Assessments Soft Tissue Assessment Soft Tissue Mobility Assessment Moderate tone throughout bilateral paraspinals, piriformis, no real complaints of tenderness to palpation Joint Mobility Assessment Joint Mobility Assessment Severe hypomobility of lumbar spine upon palpation PT-OP-K Range of Motion Start: 11/12/19 17:31 Freq: Status: Active Protocol: Document 11/12/19 16:45 DCW (Rec: 11/13/19 09:32 DCW [id number]) Lumbar Spine Range of Motion Lumbar Spine Active Degrees Testing Position Standing Flexion 0 Extension 2 ROM Limitations Bony Restriction Comments Patient's flexion ROM is entirely from hips, does no exhibit any vertebral movement when bending forward PT-OP-L Special Tests Start: 11/12/19 17:31 Freq: Status: Active Protocol: Document 11/12/19 16:45 DCW (Rec: 11/13/19 09:32 DCW [id number]) Special Tests Lumbar Spine Special Tests Double Knee to Chest Test Results Causes bilateral low back pain Slump Test Results Negative Vertical Spine Loading Test Results Negative Straight Leg Raise Test Results Positive: Ipsilateral pain bilaterally Manual Traction Test Results Negative Hip Special Tests MADDIE Test Results Minimal hip mobility PT-OP-M Strength Start: 11/12/19 17:31 Freq: Status: Active Protocol: Document 11/12/19 16:45 DCW (Rec: 11/13/19 09:32 DCW [id number]) Trunk Strength Trunk Manual Muscle Testing Core Stabilization Excellent core contraction, able to hold vs leg movement, begins to fatigue. 4/5 Hip Strength Hip Manual Muscle Testing Right Flexion (L2) 4+ Good+ Abduction 5 Normal Adduction 5 Normal External Rotation 4+ Good+ Internal Rotation 5 Normal Left Flexion (L2) 4+ Good+ Abduction 5 Normal Adduction 5 Normal External Rotation 4+ Good+ Internal Rotation 5 Normal Knee Strength Knee Manual Muscle Testing Right Flexion (S2) 5 Normal Extension (L3) 5 Normal Left Flexion (S2) 5 Normal Extension (L3) 5 Normal Ankle/Foot Strength Ankle and Foot Manual Muscle Testing Right Dorsiflexion (L4) 5 Normal Plantarflexion (S1) 5 Normal Left Dorsiflexion (L4) 5 Normal Plantarflexion (S1) 5 Normal PT-OP-Q Treatments Start: 11/12/19 17:31 Freq: Status: Active Protocol: Document 11/29/19 08:19 SP (Rec: 11/29/19 08:59 SP [id number]) Therapeutic Exercises Supine Exercises LTR Supine Exercise Name add HEP Side bilateral Reps/Minutes 2 sec hold x5 Comments cuing PPT awareness decrease LB arch recruitment pelvic tilts Supine Exercise Name tilts/clock review HEP Reps/Minutes x5 Comments slow controlled movement SKTC stretch Supine Exercise Name review HEP Side bilateral Reps/Minutes 30 x2 isometric adduction Supine Exercise Name isometric adduction review HEP Reps/Minutes 5 sec hold x 10 Comments pt trained to use a pillow to squeeze between her knees for rolling in bed core march Supine Exercise Name single lift review HEP Reps/Minutes 5 reps x2 alternate BLE Comments cued PPT awareness wtih minimal movement in trunk trans ab Supine Exercise Name Review HEP Reps/Minutes 10 sec x5 Prone Exercises child's pose Prone Exercise Name add HEP Reps/Minutes 30 sec Comments tolerant range with hip/knees Sitting Exercises sit to stand Sitting Exercise Name add HEP Reps/Minutes x5 Comments cued hip hinge Standing Exercises glut self STM at wall Standing Exercise Name discussed but review next tx Manual Therapy Treatment Soft Tissue Mobilization 1 Body Location Lumbar Paraspinals, QL, glut Mobilization Type Cross-Friction,Myofascial Release,Sustained Pressure Intensity/Depth Moderate Body Position right sidelying Comments pillows between knees, MFR to the QL and left paraspinals PT-OP-R Modalities Start: 11/12/19 17:31 Freq: Status: Active Protocol: Document 11/26/19 11:41 AMH (Rec: 11/26/19 11:41 AMH [id number]) Hot Pack/Cold Pack Treatment Hot Pack Location low back Patient Position Hooklying Treatment Duration (minutes) 10 Comments legs in 90/90 degree position PT-OP-T Assessment and Plan Start: 11/12/19 17:31 Freq: Status: Active Protocol: Document 11/29/19 08:19 SP (Rec: 11/29/19 08:59 SP [id number]) Physical Therapy Assessment Goals Three Impairment Pt presents with hypertonia along lumbar paraspinals and piriformis Snf Goal (LTG) Pt to display mild tone in paraspinals and piriformis LTG Duration 02/07/20 Two Impairment Pt exhibits negligible lumbar spine mobility Short Term Goal (STG) Pt to increase lumbar flexion ROM to 10? STG Duration 12/24/19 Snf Goal (LTG) Pt to demonstrate enough improved ROM to put lotion on her right lateral ankle LTG Duration 02/07/20 One Impairment Pt does not have an appropriate home exercise program Short Term Goal (STG) Pt to be independent and compliant with an appropriate HEP STG Duration 12/13/19 Assessment Summary Assessment Pt demonstrated l/s guarding upon arrival. Pt felt looser post manual and review stretching and core facilitation HEP. Added LTR and sit to stands to increase core and funtional mobility with good feedback results. Pt stated I feel alot better. NUCLEAR PLANT TECHNICAL ADVISOR cued during walking out awareness of posuture not leaning forward: upright with PPT and allow movement, with verbal confirmation oh yes, I need to do that more, it feels ok. Physical Therapy Plan Frequency and Duration Frequency of Treatment 2x/Week Duration of Treatment 12 weeks Plan of Care Start Date 11/12/19 Plan of Care End Date 02/03/20 Therapeutic Interventions Therapeutic Interventions Home Exercise Program,Joint Mobilizations,Manual Therapy, Patient/Caregiver Education, Self-Care/Home Management,Soft Tissue Mobilization, Therapeutic Exercises Modalities Cold Pack/Ice Massage,Hot Packs,Ultrasound Next Visit Focus/Plan Next Note Type Treatment Note Next Visit Plan Assess last tx: Manual L l/s and glut manual and HEP core and flexibility. continue to work with Clementina on lumbar flexion and flexbility of her low back and hips.
--- NOTE | 2019-12-02 09:00 | PT.OTN ---
Current Diagnoses Stiffness of unspecified joint, not elsewhere classified (12/02/19) Stiffness of unspecified hip, not elsewhere classified (12/02/19) Low back pain (12/02/19) Physical Therapy Treatment Note PT-OP-A Visit Information Start: 11/12/19 17:31 Freq: Status: Active Protocol: Document 12/02/19 08:19 SP (Rec: 12/02/19 09:03 SP [id number]) Out-Patient Physical Therapy Visit Information Visit Information Visit Type Treatment Note Visit Start Time 08:19 Visit Stop Time 09:00 Total Visit Minutes 41 Visit Number 6 Number of PHOTO OPTICS TECHNICIAN Visits 2 PT-OP-B Current Condition Start: 11/12/19 17:31 Freq: Status: Active Protocol: Document 11/12/19 16:45 DCW (Rec: 11/12/19 17:55 DCW [id number]) Current Condition History of Current Condition Onset Date 2006, worsening over last month Current Complaints Low back pain, severe stiffness in lumbar spine and hips History of Current Condition Pt is a 74 year old female presenting with a history of low back and hip pain. Pt notes that she fell down stairs in 2006, fracturing her pelvis in three places. Pt has had some progressing stiffness in the years since then, but over the last month, has become much worse. 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 Treatment Goals Patient/Caregiver Goals I'm very much troubled from the stiffness in my back. PT-OP-C Subjective Start: 11/12/19 17:31 Freq: Status: Active Protocol: Document 12/02/19 08:19 SP (Rec: 12/02/19 09:03 SP [id number]) OP-PT Subjective Patient Comments Patient Comments Pt stated had a great day Monday, no pain and able to swifter the floors, Monday wasn't pain free but not as bad as has been. Seeing some improvement. I was able to get in the pool and set up for 3day/wk. PT-OP-F Manual Assessment Start: 11/12/19 17:31 Freq: Status: Active Protocol: Document 11/12/19 16:45 DCW (Rec: 11/12/19 17:55 DCW [id number]) Manual Assessments Soft Tissue Assessment Soft Tissue Mobility Assessment Moderate tone throughout bilateral paraspinals, piriformis, no real complaints of tenderness to palpation Joint Mobility Assessment Joint Mobility Assessment Severe hypomobility of lumbar spine upon palpation PT-OP-K Range of Motion Start: 11/12/19 17:31 Freq: Status: Active Protocol: Document 11/12/19 16:45 DCW (Rec: 11/13/19 09:32 DCW [id number]) Lumbar Spine Range of Motion Lumbar Spine Active Degrees Testing Position Standing Flexion 0 Extension 2 ROM Limitations Bony Restriction Comments Patient's flexion ROM is entirely from hips, does no exhibit any vertebral movement when bending forward PT-OP-L Special Tests Start: 11/12/19 17:31 Freq: Status: Active Protocol: Document 11/12/19 16:45 DCW (Rec: 11/13/19 09:32 DCW [id number]) Special Tests Lumbar Spine Special Tests Double Knee to Chest Test Results Causes bilateral low back pain Slump Test Results Negative Vertical Spine Loading Test Results Negative Straight Leg Raise Test Results Positive: Ipsilateral pain bilaterally Manual Traction Test Results Negative Hip Special Tests MADDIE Test Results Minimal hip mobility PT-OP-M Strength Start: 11/12/19 17:31 Freq: Status: Active Protocol: Document 11/12/19 16:45 DCW (Rec: 11/13/19 09:32 DCW [id number]) Trunk Strength Trunk Manual Muscle Testing Core Stabilization Excellent core contraction, able to hold vs leg movement, begins to fatigue. 4/5 Hip Strength Hip Manual Muscle Testing Right Flexion (L2) 4+ Good+ Abduction 5 Normal Adduction 5 Normal External Rotation 4+ Good+ Internal Rotation 5 Normal Left Flexion (L2) 4+ Good+ Abduction 5 Normal Adduction 5 Normal External Rotation 4+ Good+ Internal Rotation 5 Normal Knee Strength Knee Manual Muscle Testing Right Flexion (S2) 5 Normal Extension (L3) 5 Normal Left Flexion (S2) 5 Normal Extension (L3) 5 Normal Ankle/Foot Strength Ankle and Foot Manual Muscle Testing Right Dorsiflexion (L4) 5 Normal Plantarflexion (S1) 5 Normal Left Dorsiflexion (L4) 5 Normal Plantarflexion (S1) 5 Normal PT-OP-Q Treatments Start: 11/12/19 17:31 Freq: Status: Active Protocol: Document 12/02/19 08:19 SP (Rec: 12/02/19 09:03 SP [id number]) Cardio Equipment Recumbent Elliptical (Biodex) Duration (Minutes) 6 Resistance 3 Seat Position 7 Therapeutic Exercises Supine Exercises bridge Supine Exercise Name add HEP Reps/Minutes 5 sec hold x10 Comments cued PPT & core facilitation pre lift LTR Supine Exercise Name review HEP Side bilateral Reps/Minutes 2 sec hold x5 Comments cuing PPT awareness decrease LB arch recruitment SKTC stretch Supine Exercise Name review HEP Side bilateral Reps/Minutes 30 x2 core march Supine Exercise Name core DL eccentric tap ( modified bicycle) Reps/Minutes 5 reps each x2-3 sets Comments cued PPT awareness wtih minimal movement in trunk Standing Exercises SLS Standing Exercise Name add HEP Reps/Minutes 30 sec Comments cued COG over LACY, glut facilitation, elevated posture PT-OP-R Modalities Start: 11/12/19 17:31 Freq: Status: Active Protocol: Document 11/26/19 11:41 AMH (Rec: 11/26/19 11:41 AMH [id number]) Hot Pack/Cold Pack Treatment Hot Pack Location low back Patient Position Hooklying Treatment Duration (minutes) 10 Comments legs in 90/90 degree position PT-OP-T Assessment and Plan Start: 11/12/19 17:31 Freq: Status: Active Protocol: Document 12/02/19 08:19 SP (Rec: 12/02/19 09:03 SP [id number]) Physical Therapy Assessment Goals Three Impairment Pt presents with hypertonia along lumbar paraspinals and piriformis Metal Ceiling Hanger Goal (LTG) Pt to display mild tone in paraspinals and piriformis LTG Duration 02/07/20 Two Impairment Pt exhibits negligible lumbar spine mobility Short Term Goal (STG) Pt to increase lumbar flexion ROM to 10? STG Duration 12/24/19 Penitentiary Goal (LTG) Pt to demonstrate enough improved ROM to put lotion on her right lateral ankle LTG Duration 02/07/20 One Impairment Pt does not have an appropriate home exercise program Short Term Goal (STG) Pt to be independent and compliant with an appropriate HEP STG Duration 12/13/19 Assessment Summary Assessment Pt compliant with HEP before get out of bed, sitting and at pool with good response. Responded well to core and glut strengthening today with PPT cueing and SKTC and HS stretching as needed. Improving in activity level. Physical Therapy Plan Frequency and Duration Frequency of Treatment 2x/Week Duration of Treatment 12 weeks Plan of Care Start Date 11/12/19 Plan of Care End Date 02/03/20 Therapeutic Interventions Therapeutic Interventions Home Exercise Program,Joint Mobilizations,Manual Therapy, Patient/Caregiver Education, Self-Care/Home Management,Soft Tissue Mobilization, Therapeutic Exercises Modalities Cold Pack/Ice Massage,Hot Packs,Ultrasound Next Visit Focus/Plan Next Note Type Treatment Note Next Visit Plan Assess last tx: cardio warm up and strengthening HEP review, added: SLS, core eccentric taps, segmental bridge, HS stretching. Continue to work with Clementina on lumbar flexion and flexbility of her low back and hips and strengthening.
--- NOTE | 2019-12-05 09:08 | PT.OTN ---
Current Diagnoses Stiffness of unspecified joint, not elsewhere classified (12/05/19) Stiffness of unspecified hip, not elsewhere classified (12/05/19) Low back pain (12/05/19) Physical Therapy Treatment Note PT-OP-A Visit Information Start: 11/12/19 17:31 Freq: Status: Active Protocol: Document 12/05/19 08:18 SP (Rec: 12/05/19 09:20 SP [id number]) Out-Patient Physical Therapy Visit Information Visit Information Visit Type Treatment Note Visit Start Time 08:18 Visit Stop Time 09:08 Total Visit Minutes 50 Visit Number 7 Number of BATTING MACHINE OPERATOR INSULATION Visits 3 PT-OP-B Current Condition Start: 11/12/19 17:31 Freq: Status: Active Protocol: Document 11/12/19 16:45 DCW (Rec: 11/12/19 17:55 DCW [id number]) Current Condition History of Current Condition Onset Date 2006, worsening over last month Current Complaints Low back pain, severe stiffness in lumbar spine and hips History of Current Condition Pt is a 74 year old female presenting with a history of low back and hip pain. Pt notes that she fell down stairs in 2006, fracturing her pelvis in three places. Pt has had some progressing stiffness in the years since then, but over the last month, has become much worse. 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 Treatment Goals Patient/Caregiver Goals I'm very much troubled from the stiffness in my back. PT-OP-C Subjective Start: 11/12/19 17:31 Freq: Status: Active Protocol: Document 12/05/19 08:18 SP (Rec: 12/05/19 09:20 SP [id number]) OP-PT Subjective Patient Comments Patient Comments Pt reported L LBP today 6-10 that spasms grab into L glut and the feeling like L leg might buckle. Has the same feeling when lifts to apply car brake. She states at times self guarding LB to lay down/ sit up not knowing if will spasm/grab and R LB not stable WB through ascend or descending stairs reciprocating so having to perform step to gait with contact use of rail for support in case gives way. Pt reported started water exercising 3 days per week trying to apply exercises knows from therapy, every other day with no adverse reactions. Pt requested suggestions to do in water. PT-OP-F Manual Assessment Start: 11/12/19 17:31 Freq: Status: Active Protocol: Document 11/12/19 16:45 DCW (Rec: 11/12/19 17:55 DCW [id number]) Manual Assessments Soft Tissue Assessment Soft Tissue Mobility Assessment Moderate tone throughout bilateral paraspinals, piriformis, no real complaints of tenderness to palpation Joint Mobility Assessment Joint Mobility Assessment Severe hypomobility of lumbar spine upon palpation PT-OP-K Range of Motion Start: 11/12/19 17:31 Freq: Status: Active Protocol: Document 11/12/19 16:45 DCW (Rec: 11/13/19 09:32 DCW [id number]) Lumbar Spine Range of Motion Lumbar Spine Active Degrees Testing Position Standing Flexion 0 Extension 2 ROM Limitations Bony Restriction Comments Patient's flexion ROM is entirely from hips, does no exhibit any vertebral movement when bending forward PT-OP-L Special Tests Start: 11/12/19 17:31 Freq: Status: Active Protocol: Document 11/12/19 16:45 DCW (Rec: 11/13/19 09:32 DCW [id number]) Special Tests Lumbar Spine Special Tests Double Knee to Chest Test Results Causes bilateral low back pain Slump Test Results Negative Vertical Spine Loading Test Results Negative Straight Leg Raise Test Results Positive: Ipsilateral pain bilaterally Manual Traction Test Results Negative Hip Special Tests MADDIE Test Results Minimal hip mobility PT-OP-M Strength Start: 11/12/19 17:31 Freq: Status: Active Protocol: Document 11/12/19 16:45 DCW (Rec: 11/13/19 09:32 DCW [id number]) Trunk Strength Trunk Manual Muscle Testing Core Stabilization Excellent core contraction, able to hold vs leg movement, begins to fatigue. 4/5 Hip Strength Hip Manual Muscle Testing Right Flexion (L2) 4+ Good+ Abduction 5 Normal Adduction 5 Normal External Rotation 4+ Good+ Internal Rotation 5 Normal Left Flexion (L2) 4+ Good+ Abduction 5 Normal Adduction 5 Normal External Rotation 4+ Good+ Internal Rotation 5 Normal Knee Strength Knee Manual Muscle Testing Right Flexion (S2) 5 Normal Extension (L3) 5 Normal Left Flexion (S2) 5 Normal Extension (L3) 5 Normal Ankle/Foot Strength Ankle and Foot Manual Muscle Testing Right Dorsiflexion (L4) 5 Normal Plantarflexion (S1) 5 Normal Left Dorsiflexion (L4) 5 Normal Plantarflexion (S1) 5 Normal PT-OP-Q Treatments Start: 11/12/19 17:31 Freq: Status: Active Protocol: Document 12/05/19 08:18 SP (Rec: 12/05/19 09:20 SP [id number]) Therapeutic Exercises Supine Exercises bridge Supine Exercise Name review HEP Reps/Minutes 5 sec hold x10 Comments cued PPT & core facilitation pre lift LTR Supine Exercise Name review HEP Side bilateral Reps/Minutes 2 sec hold x5 Comments cuing PPT awareness decrease LB arch recruitment trans ab Supine Exercise Name TA and pelvic tilts review HEP Reps/Minutes 10 sec x5 Prone Exercises cat camel Reps/Minutes 2 sec hold x5 Comments cued PPT child's pose Prone Exercise Name add HEP Reps/Minutes 30 sec Comments tolerant range with hip/knees Other Exercises HEP standing in water Other Exercise Name pt request (see hand outs in chart) Comments cued core and glut focus, stretching in water Manual Therapy Treatment Soft Tissue Mobilization 1 Body Location L Lumbar Paraspinals, QL, glut Mobilization Type Cross-Friction,Myofascial Release,Sustained Pressure Intensity/Depth Moderate Body Position Prone Joint Mobilizations Lumbar Spine Joint L1-5 Direction P->A Grade II Body Position Prone PT-OP-R Modalities Start: 11/12/19 17:31 Freq: Status: Active Protocol: Document 11/26/19 11:41 AMH (Rec: 11/26/19 11:41 AMH [id number]) Hot Pack/Cold Pack Treatment Hot Pack Location low back Patient Position Hooklying Treatment Duration (minutes) 10 Comments legs in 90/90 degree position PT-OP-T Assessment and Plan Start: 11/12/19 17:31 Freq: Status: Active Protocol: Document 12/05/19 08:18 SP (Rec: 12/05/19 09:20 SP [id number]) Physical Therapy Assessment Goals Three Impairment Pt presents with hypertonia along lumbar paraspinals and piriformis Dredge Lever Operator Goal (LTG) Pt to display mild tone in paraspinals and piriformis LTG Duration 02/07/20 Two Impairment Pt exhibits negligible lumbar spine mobility Short Term Goal (STG) Pt to increase lumbar flexion ROM to 10? STG Duration 12/24/19 Dredge Lever Operator Goal (LTG) Pt to demonstrate enough improved ROM to put lotion on her right lateral ankle LTG Duration 02/07/20 One Impairment Pt does not have an appropriate home exercise program Short Term Goal (STG) Pt to be independent and compliant with an appropriate HEP STG Duration 12/13/19 Assessment Summary Assessment Pt had pain lifting LLE onto recumbent bike pedal so held off today. LB tension decreased post manual and stretching HEP review. Reviewed TA, pelvic tilts, segmental bridge HEP for spinal stabiliztation. Responded well to cat/camel and child's pose but did not add to HEP due to knees sometimes uncomfortable WB on, tolerated well though. Pt responded well to tx pain decreased from 6-7/10 to 2-3/ 10 end of tx. Discussed with demonstration of water exercises, see chart application in pool activities doing in PT. Physical Therapy Plan Frequency and Duration Frequency of Treatment 2x/Week Duration of Treatment 12 weeks Plan of Care Start Date 11/12/19 Plan of Care End Date 02/03/20 Therapeutic Interventions Therapeutic Interventions Home Exercise Program,Joint Mobilizations,Manual Therapy, Patient/Caregiver Education, Self-Care/Home Management,Soft Tissue Mobilization, Therapeutic Exercises Modalities Cold Pack/Ice Massage,Hot Packs,Ultrasound Next Visit Focus/Plan Next Note Type Treatment Note Next Visit Plan Assess last tx: manual, stretching LB and core facilitation supine due to LBP . If tolerant review HEP core strengthening given 2 txs ago and progress Clementina on lumbar flexion and flexbility of her low back and hips and strengthening.
--- NOTE | 2019-12-11 12:36 | PT.OTN ---
Current Diagnoses Stiffness of unspecified joint, not elsewhere classified (12/11/19) Stiffness of unspecified hip, not elsewhere classified (12/11/19) Low back pain (12/11/19) Physical Therapy Treatment Note PT-OP-A Visit Information Start: 11/12/19 17:31 Freq: Status: Active Protocol: Document 12/11/19 12:21 AW (Rec: 12/11/19 12:35 AW [email or web address]) Out-Patient Physical Therapy Visit Information Visit Information Visit Type Treatment Note Visit Start Time 08:45 Visit Stop Time 09:45 Total Visit Minutes 60 Visit Number 8 Number of FIRE MARSHAL Visits 0 PT-OP-B Current Condition Start: 11/12/19 17:31 Freq: Status: Active Protocol: Document 11/12/19 16:45 DCW (Rec: 11/12/19 17:55 DCW [id number]) Current Condition History of Current Condition Onset Date 2006, worsening over last month Current Complaints Low back pain, severe stiffness in lumbar spine and hips History of Current Condition Pt is a 74 year old female presenting with a history of low back and hip pain. Pt notes that she fell down stairs in 2006, fracturing her pelvis in three places. Pt has had some progressing stiffness in the years since then, but over the last month, has become much worse. 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 Treatment Goals Patient/Caregiver Goals I'm very much troubled from the stiffness in my back. PT-OP-C Subjective Start: 11/12/19 17:31 Freq: Status: Active Protocol: Document 12/11/19 12:21 AW (Rec: 12/11/19 12:35 AW [email or web address]) OP-PT Subjective Patient Comments Patient Comments Pt has been doing pool exercise 30 min every other day with good effect. Pt reports recent increase in tinnitus which is most noticeable with high intracranial pressure - sneezing, coughing, blowing her nose. She states she has been somewhat unsteady on her feet with these symptoms. She describes a period of moderate unsteadiness last night during which she felt she was having hot flashes. PT-OP-F Manual Assessment Start: 11/12/19 17:31 Freq: Status: Active Protocol: Document 11/12/19 16:45 DCW (Rec: 11/12/19 17:55 DCW [id number]) Manual Assessments Soft Tissue Assessment Soft Tissue Mobility Assessment Moderate tone throughout bilateral paraspinals, piriformis, no real complaints of tenderness to palpation Joint Mobility Assessment Joint Mobility Assessment Severe hypomobility of lumbar spine upon palpation PT-OP-K Range of Motion Start: 11/12/19 17:31 Freq: Status: Active Protocol: Document 11/12/19 16:45 DCW (Rec: 11/13/19 09:32 DCW [id number]) Lumbar Spine Range of Motion Lumbar Spine Active Degrees Testing Position Standing Flexion 0 Extension 2 ROM Limitations Bony Restriction Comments Patient's flexion ROM is entirely from hips, does no exhibit any vertebral movement when bending forward PT-OP-L Special Tests Start: 11/12/19 17:31 Freq: Status: Active Protocol: Document 11/12/19 16:45 DCW (Rec: 11/13/19 09:32 DCW [id number]) Special Tests Lumbar Spine Special Tests Double Knee to Chest Test Results Causes bilateral low back pain Slump Test Results Negative Vertical Spine Loading Test Results Negative Straight Leg Raise Test Results Positive: Ipsilateral pain bilaterally Manual Traction Test Results Negative Hip Special Tests MADDIE Test Results Minimal hip mobility PT-OP-M Strength Start: 11/12/19 17:31 Freq: Status: Active Protocol: Document 11/12/19 16:45 DCW (Rec: 11/13/19 09:32 DCW [id number]) Trunk Strength Trunk Manual Muscle Testing Core Stabilization Excellent core contraction, able to hold vs leg movement, begins to fatigue. 4/5 Hip Strength Hip Manual Muscle Testing Right Flexion (L2) 4+ Good+ Abduction 5 Normal Adduction 5 Normal External Rotation 4+ Good+ Internal Rotation 5 Normal Left Flexion (L2) 4+ Good+ Abduction 5 Normal Adduction 5 Normal External Rotation 4+ Good+ Internal Rotation 5 Normal Knee Strength Knee Manual Muscle Testing Right Flexion (S2) 5 Normal Extension (L3) 5 Normal Left Flexion (S2) 5 Normal Extension (L3) 5 Normal Ankle/Foot Strength Ankle and Foot Manual Muscle Testing Right Dorsiflexion (L4) 5 Normal Plantarflexion (S1) 5 Normal Left Dorsiflexion (L4) 5 Normal Plantarflexion (S1) 5 Normal PT-OP-Q Treatments Start: 11/12/19 17:31 Freq: Status: Active Protocol: Document 12/11/19 12:21 AW (Rec: 12/11/19 12:35 AW [email or web address]) Cardio Equipment Recumbent Elliptical (Biodex) Duration (Minutes) 5 Resistance 4 Seat Position 7 Therapeutic Exercises Supine Exercises LTR Supine Exercise Name review HEP Side bilateral Reps/Minutes 2 sec hold x5 Comments cuing PPT awareness decrease LB arch recruitment core march Supine Exercise Name core march Reps/Minutes 5 reps each x2-3 sets Comments used nylon gait belt under L/S with tension for tactile feedback Prone Exercises child's pose Prone Exercise Name initiated with cat and then cued pushing hips back toward heels Reps/Minutes 30 sec x 2 Comments with walk out to R side; limited tolerance to WB on knees Sidelying Exercises side bend with legs over edge Sidelying Exercise Name SB with knees/legs over edge of table Side bilateral Comments cued to lift feet and lower with hips firmly on table Standing Exercises standing trunk flexion at wall Standing Exercise Name standing trunk flexion at wall Reps/Minutes x3 L/S side glide at wall Side bilateral Reps/Minutes x5 Comments limited SB Manual Therapy Treatment Soft Tissue Mobilization 1 Body Location L Lumbar Paraspinals, QL, glut Mobilization Type Cross-Friction,Myofascial Release,Sustained Pressure Intensity/Depth Moderate Body Position Prone Joint Mobilizations Lumbar Spine Joint L1-5 Direction P->A Grade III Body Position Prone PT-OP-R Modalities Start: 11/12/19 17:31 Freq: Status: Active Protocol: Document 12/11/19 12:21 AW (Rec: 12/11/19 12:36 AW [email or web address]) Hot Pack/Cold Pack Treatment Hot Pack Location low back Patient Position Hooklying Treatment Duration (minutes) 15 Patient Tolerance Good Comments legs in 90/90 degree position PT-OP-T Assessment and Plan Start: 11/12/19 17:31 Freq: Status: Active Protocol: Document 12/11/19 12:21 AW (Rec: 12/11/19 12:35 AW [email or web address]) Physical Therapy Assessment Goals Three Impairment Pt presents with hypertonia along lumbar paraspinals and piriformis Ict Business Development Manager Goal (LTG) Pt to display mild tone in paraspinals and piriformis LTG Duration 02/07/20 Two Impairment Pt exhibits negligible lumbar spine mobility Short Term Goal (STG) Pt to increase lumbar flexion ROM to 10? STG Duration 12/24/19 Jail Goal (LTG) Pt to demonstrate enough improved ROM to put lotion on her right lateral ankle LTG Duration 02/07/20 One Impairment Pt does not have an appropriate home exercise program Short Term Goal (STG) Pt to be independent and compliant with an appropriate HEP STG Duration 12/13/19 Assessment Summary Assessment Pt moves with flat L/S in all planes, has difficulty coordinating segmental flexion due to excessive tone and tightness. She shows good effort with all activities and seems to be able to self- limit to pain-free ROM. Physical Therapy Plan Frequency and Duration Frequency of Treatment 2x/Week Duration of Treatment 12 weeks Plan of Care Start Date 11/12/19 Plan of Care End Date 02/03/20 Therapeutic Interventions Therapeutic Interventions Home Exercise Program,Joint Mobilizations,Manual Therapy, Patient/Caregiver Education, Self-Care/Home Management,Soft Tissue Mobilization, Therapeutic Exercises Modalities Cold Pack/Ice Massage,Hot Packs,Ultrasound Next Visit Focus/Plan Next Note Type Treatment Note Next Visit Plan Assess last tx: manual, stretching LB and core facilitation supine due to LBP . Progress Clementina on lumbar flexion and flexbility of her low back and hips and strengthening.
--- NOTE | 2019-12-13 12:46 | PT.OTN ---
Current Diagnoses Stiffness of unspecified joint, not elsewhere classified (12/13/19) Stiffness of unspecified hip, not elsewhere classified (12/13/19) Low back pain (12/13/19) Physical Therapy Treatment Note PT-OP-A Visit Information Start: 11/12/19 17:31 Freq: Status: Active Protocol: Document 12/13/19 12:00 DCW (Rec: 12/13/19 12:46 DCW [id number]) Out-Patient Physical Therapy Visit Information Visit Information Visit Type Treatment Note Visit Start Time 12:00 Visit Stop Time 12:45 Total Visit Minutes 45 Visit Number 9 Number of CLOTH CALENDER Visits 0 Evaluation Information Evaluation Date 11/12/19 PT-OP-B Current Condition Start: 11/12/19 17:31 Freq: Status: Active Protocol: Document 11/12/19 16:45 DCW (Rec: 11/12/19 17:55 DCW [id number]) Current Condition History of Current Condition Onset Date 2006, worsening over last month Current Complaints Low back pain, severe stiffness in lumbar spine and hips History of Current Condition Pt is a 74 year old female presenting with a history of low back and hip pain. Pt notes that she fell down stairs in 2006, fracturing her pelvis in three places. Pt has had some progressing stiffness in the years since then, but over the last month, has become much worse. 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 Treatment Goals Patient/Caregiver Goals I'm very much troubled from the stiffness in my back. PT-OP-C Subjective Start: 11/12/19 17:31 Freq: Status: Active Protocol: Document 12/13/19 12:00 DCW (Rec: 12/13/19 12:46 DCW [id number]) OP-PT Subjective Patient Comments Patient Comments Pt reports she was pretty sore after her last visit, something got stretched out that has been pretty tight, but felt better after going to the pool yesterday and stretching out. PT-OP-F Manual Assessment Start: 11/12/19 17:31 Freq: Status: Active Protocol: Document 11/12/19 16:45 DCW (Rec: 11/12/19 17:55 DCW [id number]) Manual Assessments Soft Tissue Assessment Soft Tissue Mobility Assessment Moderate tone throughout bilateral paraspinals, piriformis, no real complaints of tenderness to palpation Joint Mobility Assessment Joint Mobility Assessment Severe hypomobility of lumbar spine upon palpation PT-OP-K Range of Motion Start: 11/12/19 17:31 Freq: Status: Active Protocol: Document 11/12/19 16:45 DCW (Rec: 11/13/19 09:32 DCW [id number]) Lumbar Spine Range of Motion Lumbar Spine Active Degrees Testing Position Standing Flexion 0 Extension 2 ROM Limitations Bony Restriction Comments Patient's flexion ROM is entirely from hips, does no exhibit any vertebral movement when bending forward PT-OP-L Special Tests Start: 11/12/19 17:31 Freq: Status: Active Protocol: Document 11/12/19 16:45 DCW (Rec: 11/13/19 09:32 DCW [id number]) Special Tests Lumbar Spine Special Tests Double Knee to Chest Test Results Causes bilateral low back pain Slump Test Results Negative Vertical Spine Loading Test Results Negative Straight Leg Raise Test Results Positive: Ipsilateral pain bilaterally Manual Traction Test Results Negative Hip Special Tests MADDIE Test Results Minimal hip mobility PT-OP-M Strength Start: 11/12/19 17:31 Freq: Status: Active Protocol: Document 11/12/19 16:45 DCW (Rec: 11/13/19 09:32 DCW [id number]) Trunk Strength Trunk Manual Muscle Testing Core Stabilization Excellent core contraction, able to hold vs leg movement, begins to fatigue. 4/5 Hip Strength Hip Manual Muscle Testing Right Flexion (L2) 4+ Good+ Abduction 5 Normal Adduction 5 Normal External Rotation 4+ Good+ Internal Rotation 5 Normal Left Flexion (L2) 4+ Good+ Abduction 5 Normal Adduction 5 Normal External Rotation 4+ Good+ Internal Rotation 5 Normal Knee Strength Knee Manual Muscle Testing Right Flexion (S2) 5 Normal Extension (L3) 5 Normal Left Flexion (S2) 5 Normal Extension (L3) 5 Normal Ankle/Foot Strength Ankle and Foot Manual Muscle Testing Right Dorsiflexion (L4) 5 Normal Plantarflexion (S1) 5 Normal Left Dorsiflexion (L4) 5 Normal Plantarflexion (S1) 5 Normal PT-OP-Q Treatments Start: 11/12/19 17:31 Freq: Status: Active Protocol: Document 12/13/19 12:00 DCW (Rec: 12/13/19 12:46 DCW [id number]) Cardio Equipment Recumbent Elliptical (Biodex) Duration (Minutes) 5 Resistance 4 Seat Position 7 Therapeutic Exercises Supine Exercises bridge Supine Exercise Name review HEP Reps/Minutes 5 sec hold x10 Comments cued PPT & core facilitation pre lift core march Supine Exercise Name core march Reps/Minutes 5 reps each x2-3 sets trans ab Supine Exercise Name TA and pelvic tilts Reps/Minutes 10 sec x5 Prone Exercises cat camel Reps/Minutes 2 sec hold x5 Comments cued PPT child's pose Reps/Minutes 30 sec Comments tolerant range with hip/knees Manual Therapy Treatment Soft Tissue Mobilization 2 Body Location Psoas Mobilization Type Myofascial Release,Sustained Pressure 1 Body Location L Lumbar Paraspinals, QL, glut Mobilization Type Cross-Friction,Myofascial Release,Sustained Pressure Intensity/Depth Moderate Body Position Prone Joint Mobilizations Lumbar Spine Joint L1-5 Direction P->A Grade III Body Position Prone PT-OP-R Modalities Start: 11/12/19 17:31 Freq: Status: Active Protocol: Document 12/11/19 12:21 AW (Rec: 12/11/19 12:36 AW [id number]) Hot Pack/Cold Pack Treatment Hot Pack Location low back Patient Position Hooklying Treatment Duration (minutes) 15 Patient Tolerance Good Comments legs in 90/90 degree position PT-OP-T Assessment and Plan Start: 11/12/19 17:31 Freq: Status: Active Protocol: Document 12/13/19 12:00 DCW (Rec: 12/13/19 12:46 DCW [id number]) Physical Therapy Assessment Goals Three Impairment Pt presents with hypertonia along lumbar paraspinals and piriformis Senior Ruby Developer Goal (LTG) Pt to display mild tone in paraspinals and piriformis LTG Duration 02/07/20 Two Impairment Pt exhibits negligible lumbar spine mobility Short Term Goal (STG) Pt to increase lumbar flexion ROM to 10? STG Duration 12/24/19 Senior Ruby Developer Goal (LTG) Pt to demonstrate enough improved ROM to put lotion on her right lateral ankle LTG Duration 02/07/20 One Impairment Pt does not have an appropriate home exercise program Short Term Goal (STG) Pt to be independent and compliant with an appropriate HEP STG Duration 12/13/19 Assessment Summary Assessment Pt is showing some mild improvements with lumbar mobility, doing well with core stabilization and decreased paraspinal tone. Physical Therapy Plan Frequency and Duration Frequency of Treatment 2x/Week Duration of Treatment 12 weeks Plan of Care Start Date 11/12/19 Plan of Care End Date 02/03/20 Therapeutic Interventions Therapeutic Interventions Home Exercise Program,Joint Mobilizations,Manual Therapy, Patient/Caregiver Education, Self-Care/Home Management,Soft Tissue Mobilization, Therapeutic Exercises Modalities Cold Pack/Ice Massage,Hot Packs,Ultrasound Next Visit Focus/Plan Next Note Type Treatment Note Next Visit Plan Assess last tx: manual, stretching LB and core facilitation supine due to LBP . Progress Clementina on lumbar flexion and flexbility of her low back and hips and strengthening.
--- NOTE | 2019-12-17 12:00 | PT.OTN ---
Current Diagnoses Stiffness of unspecified joint, not elsewhere classified (12/17/19) Stiffness of unspecified hip, not elsewhere classified (12/17/19) Low back pain (12/17/19) Physical Therapy Treatment Note PT-OP-A Visit Information Start: 11/12/19 17:31 Freq: Status: Active Protocol: Document 12/17/19 11:15 DCW (Rec: 12/17/19 12:00 DCW [id number]) Out-Patient Physical Therapy Visit Information Visit Information Visit Type Treatment Note Visit Start Time 11:15 Visit Stop Time 12:00 Total Visit Minutes 45 Visit Number 10 Number of BUSINESS PROCESS ASSOCIATE Visits 0 Evaluation Information Evaluation Date 11/12/19 PT-OP-B Current Condition Start: 11/12/19 17:31 Freq: Status: Active Protocol: Document 11/12/19 16:45 DCW (Rec: 11/12/19 17:55 DCW [id number]) Current Condition History of Current Condition Onset Date 2006, worsening over last month Current Complaints Low back pain, severe stiffness in lumbar spine and hips History of Current Condition Pt is a 74 year old female presenting with a history of low back and hip pain. Pt notes that she fell down stairs in 2006, fracturing her pelvis in three places. Pt has had some progressing stiffness in the years since then, but over the last month, has become much worse. 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 Treatment Goals Patient/Caregiver Goals I'm very much troubled from the stiffness in my back. PT-OP-C Subjective Start: 11/12/19 17:31 Freq: Status: Active Protocol: Document 12/17/19 11:15 DCW (Rec: 12/17/19 12:00 DCW [id number]) OP-PT Subjective Patient Comments Patient Comments It seems to be one step forward, two steps back, or two steps forward, one back. I feels better, until all of a sudden I don't. I just feel like it should be better by now. PT-OP-F Manual Assessment Start: 11/12/19 17:31 Freq: Status: Active Protocol: Document 11/12/19 16:45 DCW (Rec: 11/12/19 17:55 DCW [id number]) Manual Assessments Soft Tissue Assessment Soft Tissue Mobility Assessment Moderate tone throughout bilateral paraspinals, piriformis, no real complaints of tenderness to palpation Joint Mobility Assessment Joint Mobility Assessment Severe hypomobility of lumbar spine upon palpation PT-OP-K Range of Motion Start: 11/12/19 17:31 Freq: Status: Active Protocol: Document 11/12/19 16:45 DCW (Rec: 11/13/19 09:32 DCW [id number]) Lumbar Spine Range of Motion Lumbar Spine Active Degrees Testing Position Standing Flexion 0 Extension 2 ROM Limitations Bony Restriction Comments Patient's flexion ROM is entirely from hips, does no exhibit any vertebral movement when bending forward PT-OP-L Special Tests Start: 11/12/19 17:31 Freq: Status: Active Protocol: Document 11/12/19 16:45 DCW (Rec: 11/13/19 09:32 DCW [id number]) Special Tests Lumbar Spine Special Tests Double Knee to Chest Test Results Causes bilateral low back pain Slump Test Results Negative Vertical Spine Loading Test Results Negative Straight Leg Raise Test Results Positive: Ipsilateral pain bilaterally Manual Traction Test Results Negative Hip Special Tests MADDIE Test Results Minimal hip mobility PT-OP-M Strength Start: 11/12/19 17:31 Freq: Status: Active Protocol: Document 11/12/19 16:45 DCW (Rec: 11/13/19 09:32 DCW [id number]) Trunk Strength Trunk Manual Muscle Testing Core Stabilization Excellent core contraction, able to hold vs leg movement, begins to fatigue. 4/5 Hip Strength Hip Manual Muscle Testing Right Flexion (L2) 4+ Good+ Abduction 5 Normal Adduction 5 Normal External Rotation 4+ Good+ Internal Rotation 5 Normal Left Flexion (L2) 4+ Good+ Abduction 5 Normal Adduction 5 Normal External Rotation 4+ Good+ Internal Rotation 5 Normal Knee Strength Knee Manual Muscle Testing Right Flexion (S2) 5 Normal Extension (L3) 5 Normal Left Flexion (S2) 5 Normal Extension (L3) 5 Normal Ankle/Foot Strength Ankle and Foot Manual Muscle Testing Right Dorsiflexion (L4) 5 Normal Plantarflexion (S1) 5 Normal Left Dorsiflexion (L4) 5 Normal Plantarflexion (S1) 5 Normal PT-OP-Q Treatments Start: 11/12/19 17:31 Freq: Status: Active Protocol: Document 12/17/19 11:15 DCW (Rec: 12/17/19 12:00 DCW [id number]) Cardio Equipment Recumbent Elliptical (Biodex) Duration (Minutes) 5 Resistance 4 Seat Position 7 Gym Equipment Shuttle Recovery Unilateral Squats Resistance 37# Shuttle Recovery Platform Stable Reps/Time x20 Bilateral Squats Resistance 75# Shuttle Recovery Platform Stable Reps/Time x20 Therapeutic Ball 2 Exercise Details Pelvic tilts, pelvic circles Ball Size/Color Green - 65 cm Body Position Seated Therapeutic Exercises Standing Exercises Hip Hiking Standing Exercise Name Hip hiking Side bilateral Reps/Minutes 6 step Manual Therapy Treatment Soft Tissue Mobilization 2 Body Location B Psoas Mobilization Type Myofascial Release,Sustained Pressure 1 Body Location L Lumbar Paraspinals, QL, glut Mobilization Type Cross-Friction,Myofascial Release,Sustained Pressure Intensity/Depth Moderate Body Position Prone Joint Mobilizations Lumbar Spine Joint L1-5 Direction P->A Grade III Body Position Prone PT-OP-R Modalities Start: 11/12/19 17:31 Freq: Status: Active Protocol: Document 12/11/19 12:21 AW (Rec: 12/11/19 12:36 AW [id number]) Hot Pack/Cold Pack Treatment Hot Pack Location low back Patient Position Hooklying Treatment Duration (minutes) 15 Patient Tolerance Good Comments legs in 90/90 degree position PT-OP-T Assessment and Plan Start: 11/12/19 17:31 Freq: Status: Active Protocol: Document 12/17/19 11:15 DCW (Rec: 12/17/19 12:00 DCW [id number]) Physical Therapy Assessment Impairments Impairments Functional Mobility,Pain, Posture,ROM,Tone Goals Three Impairment Pt presents with hypertonia along lumbar paraspinals and piriformis Fdc Goal (LTG) Pt to display mild tone in paraspinals and piriformis LTG Duration 02/07/20 Two Impairment Pt exhibits negligible lumbar spine mobility Short Term Goal (STG) Pt to increase lumbar flexion ROM to 10? STG Duration 12/24/19 Fdc Goal (LTG) Pt to demonstrate enough improved ROM to put lotion on her right lateral ankle LTG Duration 02/07/20 One Impairment Pt does not have an appropriate home exercise program Short Term Goal (STG) Pt to be independent and compliant with an appropriate HEP STG Duration 12/13/19 Assessment Summary Assessment Pt tolerated new hip/lumbar mobility exercises well, showing some improved isolated lumbar movement, still fairly stiff and demonstrated high tone in paraspinals. Physical Therapy Plan Frequency and Duration Frequency of Treatment 2x/Week Duration of Treatment 12 weeks Plan of Care Start Date 11/12/19 Plan of Care End Date 02/03/20 Therapeutic Interventions Therapeutic Interventions Home Exercise Program,Joint Mobilizations,Manual Therapy, Patient/Caregiver Education, Self-Care/Home Management,Soft Tissue Mobilization, Therapeutic Exercises Modalities Cold Pack/Ice Massage,Hot Packs,Ultrasound Next Visit Focus/Plan Next Note Type Progress Note Next Visit Plan 10 visit prog note
--- NOTE | 2019-12-19 12:02 | PT.OTN ---
Current Diagnoses Stiffness of unspecified joint, not elsewhere classified (12/19/19) Stiffness of unspecified hip, not elsewhere classified (12/19/19) Low back pain (12/19/19) Physical Therapy Treatment Note PT-OP-A Visit Information Start: 11/12/19 17:31 Freq: Status: Active Protocol: Document 12/19/19 11:15 DCW (Rec: 12/19/19 12:02 DCW [id number]) Out-Patient Physical Therapy Visit Information Visit Information Visit Type Progress Note Visit Start Time 11:15 Visit Stop Time 12:00 Total Visit Minutes 45 Visit Number 11 Number of TYPEWRITER REPAIRER Visits 0 Evaluation Information Evaluation Date 11/12/19 PT-OP-B Current Condition Start: 11/12/19 17:31 Freq: Status: Active Protocol: Document 11/12/19 16:45 DCW (Rec: 11/12/19 17:55 DCW [id number]) Current Condition History of Current Condition Onset Date 2006, worsening over last month Current Complaints Low back pain, severe stiffness in lumbar spine and hips History of Current Condition Pt is a 74 year old female presenting with a history of low back and hip pain. Pt notes that she fell down stairs in 2006, fracturing her pelvis in three places. Pt has had some progressing stiffness in the years since then, but over the last month, has become much worse. 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 Treatment Goals Patient/Caregiver Goals I'm very much troubled from the stiffness in my back. PT-OP-C Subjective Start: 11/12/19 17:31 Freq: Status: Active Protocol: Document 12/19/19 11:15 DCW (Rec: 12/19/19 12:02 DCW [id number]) OP-PT Subjective Patient Comments Patient Comments I felt really good after I left here the other day. I don 't feel as good any more. PT-OP-F Manual Assessment Start: 11/12/19 17:31 Freq: Status: Active Protocol: Document 11/12/19 16:45 DCW (Rec: 11/12/19 17:55 DCW [id number]) Manual Assessments Soft Tissue Assessment Soft Tissue Mobility Assessment Moderate tone throughout bilateral paraspinals, piriformis, no real complaints of tenderness to palpation Joint Mobility Assessment Joint Mobility Assessment Severe hypomobility of lumbar spine upon palpation PT-OP-K Range of Motion Start: 11/12/19 17:31 Freq: Status: Active Protocol: Document 11/12/19 16:45 DCW (Rec: 11/13/19 09:32 DCW [id number]) Lumbar Spine Range of Motion Lumbar Spine Active Degrees Testing Position Standing Flexion 0 Extension 2 ROM Limitations Bony Restriction Comments Patient's flexion ROM is entirely from hips, does no exhibit any vertebral movement when bending forward PT-OP-L Special Tests Start: 11/12/19 17:31 Freq: Status: Active Protocol: Document 11/12/19 16:45 DCW (Rec: 11/13/19 09:32 DCW [id number]) Special Tests Lumbar Spine Special Tests Double Knee to Chest Test Results Causes bilateral low back pain Slump Test Results Negative Vertical Spine Loading Test Results Negative Straight Leg Raise Test Results Positive: Ipsilateral pain bilaterally Manual Traction Test Results Negative Hip Special Tests MADDIE Test Results Minimal hip mobility PT-OP-M Strength Start: 11/12/19 17:31 Freq: Status: Active Protocol: Document 11/12/19 16:45 DCW (Rec: 11/13/19 09:32 DCW [id number]) Trunk Strength Trunk Manual Muscle Testing Core Stabilization Excellent core contraction, able to hold vs leg movement, begins to fatigue. 4/5 Hip Strength Hip Manual Muscle Testing Right Flexion (L2) 4+ Good+ Abduction 5 Normal Adduction 5 Normal External Rotation 4+ Good+ Internal Rotation 5 Normal Left Flexion (L2) 4+ Good+ Abduction 5 Normal Adduction 5 Normal External Rotation 4+ Good+ Internal Rotation 5 Normal Knee Strength Knee Manual Muscle Testing Right Flexion (S2) 5 Normal Extension (L3) 5 Normal Left Flexion (S2) 5 Normal Extension (L3) 5 Normal Ankle/Foot Strength Ankle and Foot Manual Muscle Testing Right Dorsiflexion (L4) 5 Normal Plantarflexion (S1) 5 Normal Left Dorsiflexion (L4) 5 Normal Plantarflexion (S1) 5 Normal PT-OP-Q Treatments Start: 11/12/19 17:31 Freq: Status: Active Protocol: Document 09/10/20 11:15 DCW (Rec: 12/19/19 12:02 DCW [id number]) Cardio Equipment Recumbent Elliptical (Biodex) Duration (Minutes) 5 Resistance 4 Seat Position 7 Gym Equipment Therapeutic Ball 2 Exercise Details Pelvic tilts, pelvic circles Ball Size/Color Green - 65 cm Body Position Sitting 1 Exercise Details LTR vs Resistance Ball Size/Color Green - 65 cm Body Position Sitting Therapeutic Exercises Standing Exercises Hip Hiking Standing Exercise Name Hip hiking Side bilateral Reps/Minutes 6 step Manual Therapy Treatment Soft Tissue Mobilization 2 Body Location B Psoas Mobilization Type Myofascial Release,Sustained Pressure 1 Body Location L Lumbar Paraspinals, QL, glut Mobilization Type Cross-Friction,Myofascial Release,Sustained Pressure Intensity/Depth Moderate Body Position Prone Joint Mobilizations Lumbar Spine Joint L1-5 Direction P->A Grade III Body Position Prone PT-OP-R Modalities Start: 11/12/19 17:31 Freq: Status: Active Protocol: Document 12/11/19 12:21 AW (Rec: 12/11/19 12:36 AW [id number]) Hot Pack/Cold Pack Treatment Hot Pack Location low back Patient Position Hooklying Treatment Duration (minutes) 15 Patient Tolerance Good Comments legs in 90/90 degree position PT-OP-T Assessment and Plan Start: 11/12/19 17:31 Freq: Status: Active Protocol: Document 12/19/19 11:15 DCW (Rec: 12/19/19 12:02 DCW [id number]) Physical Therapy Assessment Impairments Impairments Functional Mobility,Pain, Posture,ROM,Tone Goals Three Impairment Pt presents with hypertonia along lumbar paraspinals and piriformis Ecommerce Marketing Specialist Goal (LTG) Pt to display mild tone in paraspinals and piriformis LTG Duration 02/07/20 Two Impairment Pt exhibits negligible lumbar spine mobility Short Term Goal (STG) Pt to increase lumbar flexion ROM to 10? STG Duration 12/24/19 Shelter Goal (LTG) Pt to demonstrate enough improved ROM to put lotion on her right lateral ankle LTG Duration 02/07/20 One Impairment Pt does not have an appropriate home exercise program Short Term Goal (STG) Pt to be independent and compliant with an appropriate HEP STG Duration 12/13/19 Assessment Summary Assessment Pt responds well to STM, feels much better leaving clinic. Unclear why pt had such a flair-up last night, will keep an eye on what she has been doing to try to determine a pattern. Physical Therapy Plan Frequency and Duration Frequency of Treatment 2x/Week Duration of Treatment 12 weeks Plan of Care Start Date 11/12/19 Plan of Care End Date 02/03/20 Therapeutic Interventions Therapeutic Interventions Home Exercise Program,Joint Mobilizations,Manual Therapy, Patient/Caregiver Education, Self-Care/Home Management,Soft Tissue Mobilization, Therapeutic Exercises Modalities Cold Pack/Ice Massage,Hot Packs,Ultrasound Next Visit Focus/Plan Next Note Type Treatment Note Next Visit Plan Assess last tx: manual, stretching LB and core facilitation supine due to LBP . Progress Clementina on lumbar flexion and flexbility of her low back and hips and strengthening.
--- NOTE | 2019-12-23 10:30 | PT.OTN ---
Current Diagnoses Stiffness of unspecified joint, not elsewhere classified (12/23/19) Stiffness of unspecified hip, not elsewhere classified (12/23/19) Low back pain (12/23/19) Physical Therapy Treatment Note PT-OP-A Visit Information Start: 11/12/19 17:31 Freq: Status: Active Protocol: Document 12/23/19 09:50 DCW (Rec: 12/23/19 10:29 DCW [id number]) Out-Patient Physical Therapy Visit Information Visit Information Visit Type Treatment Note Visit Start Time 09:50 Visit Stop Time 10:40 Total Visit Minutes 50 Visit Number 12 Number of WINE SALES REPRESENTATIVE Visits 0 Evaluation Information Evaluation Date 11/12/19 PT-OP-B Current Condition Start: 11/12/19 17:31 Freq: Status: Active Protocol: Document 11/12/19 16:45 DCW (Rec: 11/12/19 17:55 DCW [id number]) Current Condition History of Current Condition Onset Date 2006, worsening over last month Current Complaints Low back pain, severe stiffness in lumbar spine and hips History of Current Condition Pt is a 74 year old female presenting with a history of low back and hip pain. Pt notes that she fell down stairs in 2006, fracturing her pelvis in three places. Pt has had some progressing stiffness in the years since then, but over the last month, has become much worse. 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 Treatment Goals Patient/Caregiver Goals I'm very much troubled from the stiffness in my back. PT-OP-C Subjective Start: 11/12/19 17:31 Freq: Status: Active Protocol: Document 12/23/19 09:50 DCW (Rec: 12/23/19 10:29 DCW [id number]) OP-PT Subjective Patient Comments Patient Comments Pt reports she woke up with increased back pain this morning. PT-OP-F Manual Assessment Start: 11/12/19 17:31 Freq: Status: Active Protocol: Document 11/12/19 16:45 DCW (Rec: 08/04/20 17:55 DCW [id number]) Manual Assessments Soft Tissue Assessment Soft Tissue Mobility Assessment Moderate tone throughout bilateral paraspinals, piriformis, no real complaints of tenderness to palpation Joint Mobility Assessment Joint Mobility Assessment Severe hypomobility of lumbar spine upon palpation PT-OP-K Range of Motion Start: 11/12/19 17:31 Freq: Status: Active Protocol: Document 11/12/19 16:45 DCW (Rec: 11/13/19 09:32 DCW [id number]) Lumbar Spine Range of Motion Lumbar Spine Active Degrees Testing Position Standing Flexion 0 Extension 2 ROM Limitations Bony Restriction Comments Patient's flexion ROM is entirely from hips, does no exhibit any vertebral movement when bending forward PT-OP-L Special Tests Start: 11/12/19 17:31 Freq: Status: Active Protocol: Document 11/12/19 16:45 DCW (Rec: 11/13/19 09:32 DCW [id number]) Special Tests Lumbar Spine Special Tests Double Knee to Chest Test Results Causes bilateral low back pain Slump Test Results Negative Vertical Spine Loading Test Results Negative Straight Leg Raise Test Results Positive: Ipsilateral pain bilaterally Manual Traction Test Results Negative Hip Special Tests MADDIE Test Results Minimal hip mobility PT-OP-M Strength Start: 11/12/19 17:31 Freq: Status: Active Protocol: Document 11/12/19 16:45 DCW (Rec: 11/13/19 09:32 DCW [id number]) Trunk Strength Trunk Manual Muscle Testing Core Stabilization Excellent core contraction, able to hold vs leg movement, begins to fatigue. 4/5 Hip Strength Hip Manual Muscle Testing Right Flexion (L2) 4+ Good+ Abduction 5 Normal Adduction 5 Normal External Rotation 4+ Good+ Internal Rotation 5 Normal Left Flexion (L2) 4+ Good+ Abduction 5 Normal Adduction 5 Normal External Rotation 4+ Good+ Internal Rotation 5 Normal Knee Strength Knee Manual Muscle Testing Right Flexion (S2) 5 Normal Extension (L3) 5 Normal Left Flexion (S2) 5 Normal Extension (L3) 5 Normal Ankle/Foot Strength Ankle and Foot Manual Muscle Testing Right Dorsiflexion (L4) 5 Normal Plantarflexion (S1) 5 Normal Left Dorsiflexion (L4) 5 Normal Plantarflexion (S1) 5 Normal PT-OP-Q Treatments Start: 11/12/19 17:31 Freq: Status: Active Protocol: Document 12/23/19 09:50 DCW (Rec: 12/23/19 10:29 DCW [id number]) Cardio Equipment Recumbent Elliptical (Biodex) Duration (Minutes) 5 Resistance 4 Seat Position 7 Gym Equipment Shuttle Recovery Unilateral Squats Resistance 37# Shuttle Recovery Platform Stable Reps/Time x20 Bilateral Squats Resistance 75# Shuttle Recovery Platform Stable Reps/Time x20 Therapeutic Ball 2 Exercise Details Pelvic tilts, pelvic circles Ball Size/Color Green - 65 cm Body Position Sitting Manual Therapy Treatment Soft Tissue Mobilization 2 Body Location B Psoas Mobilization Type Myofascial Release,Sustained Pressure 1 Body Location L Lumbar Paraspinals, QL, glut Mobilization Type Cross-Friction,Myofascial Release,Sustained Pressure Intensity/Depth Moderate Body Position Prone Joint Mobilizations Lumbar Spine Joint L1-5 Direction P->A Grade III Body Position Prone PT-OP-R Modalities Start: 11/12/19 17:31 Freq: Status: Active Protocol: Document 12/23/19 09:50 DCW (Rec: 12/23/19 10:30 DCW [id number]) Electric Stimulation Electric Stimulation Interferential Current (IFC) Body Location Low back Duration (Minutes) 15 Cycle Continuous Patient Position Sidelying Combined With Heat/Cold Hot Pack PT-OP-T Assessment and Plan Start: 11/12/19 17:31 Freq: Status: Active Protocol: Document 12/23/19 09:50 DCW (Rec: 12/23/19 10:29 DCW [id number]) Physical Therapy Assessment Impairments Impairments Functional Mobility,Pain, Posture,ROM,Tone Goals Three Impairment Pt presents with hypertonia along lumbar paraspinals and piriformis Fpc Goal (LTG) Pt to display mild tone in paraspinals and piriformis LTG Duration 02/07/20 Two Impairment Pt exhibits negligible lumbar spine mobility Short Term Goal (STG) Pt to increase lumbar flexion ROM to 10? STG Duration 12/24/19 Fpc Goal (LTG) Pt to demonstrate enough improved ROM to put lotion on her right lateral ankle LTG Duration 02/07/20 One Impairment Pt does not have an appropriate home exercise program Short Term Goal (STG) Pt to be independent and compliant with an appropriate HEP STG Duration 12/13/19 Assessment Summary Assessment Pt trial of e-stim, pt interested in home TENS unit. Discuss next visit how she felt following today's trial. Pt overall tolerated treatment well. Physical Therapy Plan Frequency and Duration Frequency of Treatment 2x/Week Duration of Treatment 12 weeks Plan of Care Start Date 11/12/19 Plan of Care End Date 02/03/20 Therapeutic Interventions Therapeutic Interventions Home Exercise Program,Joint Mobilizations,Manual Therapy, Patient/Caregiver Education, Self-Care/Home Management,Soft Tissue Mobilization, Therapeutic Exercises Modalities Cold Pack/Ice Massage,Hot Packs,Ultrasound Next Visit Focus/Plan Next Note Type Treatment Note Next Visit Plan Assess last tx: manual, stretching LB and core facilitation supine due to LBP . Progress Clementina on lumbar flexion and flexbility of her low back and hips and strengthening.
--- NOTE | 2019-12-26 10:30 | PT.OTN ---
Current Diagnoses Stiffness of unspecified joint, not elsewhere classified (12/26/19) Stiffness of unspecified hip, not elsewhere classified (12/26/19) Low back pain (12/26/19) Physical Therapy Treatment Note PT-OP-A Visit Information Start: 11/12/19 17:31 Freq: Status: Active Protocol: Document 12/26/19 09:45 DCW (Rec: 12/26/19 10:30 DCW [id number]) Out-Patient Physical Therapy Visit Information Visit Information Visit Type Treatment Note Visit Start Time 09:45 Visit Stop Time 10:35 Total Visit Minutes 50 Visit Number 13 Number of BARREL LINER Visits 0 Evaluation Information Evaluation Date 11/12/19 PT-OP-B Current Condition Start: 11/12/19 17:31 Freq: Status: Active Protocol: Document 11/12/19 16:45 DCW (Rec: 11/12/19 17:55 DCW [id number]) Current Condition History of Current Condition Onset Date 2006, worsening over last month Current Complaints Low back pain, severe stiffness in lumbar spine and hips History of Current Condition Pt is a 74 year old female presenting with a history of low back and hip pain. Pt notes that she fell down stairs in 2006, fracturing her pelvis in three places. Pt has had some progressing stiffness in the years since then, but over the last month, has become much worse. 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 Treatment Goals Patient/Caregiver Goals I'm very much troubled from the stiffness in my back. PT-OP-C Subjective Start: 11/12/19 17:31 Freq: Status: Active Protocol: Document 12/26/19 09:45 DCW (Rec: 12/26/19 10:30 DCW [id number]) OP-PT Subjective Patient Comments Patient Comments It hurts today, my back, and even down into my butt a little. Pt notes she didn't feel much of a difference PT-OP-F Manual Assessment Start: 11/12/19 17:31 Freq: Status: Active Protocol: Document 11/12/19 16:45 DCW (Rec: 11/12/19 17:55 DCW [id number]) Manual Assessments Soft Tissue Assessment Soft Tissue Mobility Assessment Moderate tone throughout bilateral paraspinals, piriformis, no real complaints of tenderness to palpation Joint Mobility Assessment Joint Mobility Assessment Severe hypomobility of lumbar spine upon palpation PT-OP-K Range of Motion Start: 11/12/19 17:31 Freq: Status: Active Protocol: Document 11/12/19 16:45 DCW (Rec: 11/13/19 09:32 DCW [id number]) Lumbar Spine Range of Motion Lumbar Spine Active Degrees Testing Position Standing Flexion 0 Extension 2 ROM Limitations Bony Restriction Comments Patient's flexion ROM is entirely from hips, does no exhibit any vertebral movement when bending forward PT-OP-L Special Tests Start: 11/12/19 17:31 Freq: Status: Active Protocol: Document 11/12/19 16:45 DCW (Rec: 11/13/19 09:32 DCW [id number]) Special Tests Lumbar Spine Special Tests Double Knee to Chest Test Results Causes bilateral low back pain Slump Test Results Negative Vertical Spine Loading Test Results Negative Straight Leg Raise Test Results Positive: Ipsilateral pain bilaterally Manual Traction Test Results Negative Hip Special Tests MADDIE Test Results Minimal hip mobility PT-OP-M Strength Start: 11/12/19 17:31 Freq: Status: Active Protocol: Document 11/12/19 16:45 DCW (Rec: 11/13/19 09:32 DCW [id number]) Trunk Strength Trunk Manual Muscle Testing Core Stabilization Excellent core contraction, able to hold vs leg movement, begins to fatigue. 4/5 Hip Strength Hip Manual Muscle Testing Right Flexion (L2) 4+ Good+ Abduction 5 Normal Adduction 5 Normal External Rotation 4+ Good+ Internal Rotation 5 Normal Left Flexion (L2) 4+ Good+ Abduction 5 Normal Adduction 5 Normal External Rotation 4+ Good+ Internal Rotation 5 Normal Knee Strength Knee Manual Muscle Testing Right Flexion (S2) 5 Normal Extension (L3) 5 Normal Left Flexion (S2) 5 Normal Extension (L3) 5 Normal Ankle/Foot Strength Ankle and Foot Manual Muscle Testing Right Dorsiflexion (L4) 5 Normal Plantarflexion (S1) 5 Normal Left Dorsiflexion (L4) 5 Normal Plantarflexion (S1) 5 Normal PT-OP-Q Treatments Start: 11/12/19 17:31 Freq: Status: Active Protocol: Document 12/26/19 09:45 DCW (Rec: 12/26/19 10:30 DCW [id number]) Cardio Equipment Recumbent Stepper (Sci-Fit) Duration (Minutes) 5 Resistance 3 Seat Position 9 Gym Equipment Shuttle Recovery Unilateral Squats Resistance 37# Shuttle Recovery Platform Stable Reps/Time x20 Bilateral Squats Resistance 75# Shuttle Recovery Platform Stable Reps/Time x20 Therapeutic Ball 2 Exercise Details Pelvic tilts, pelvic circles Ball Size/Color Green - 65 cm Body Position Sitting Manual Therapy Treatment Soft Tissue Mobilization 2 Body Location B Psoas Mobilization Type Myofascial Release,Sustained Pressure 1 Body Location L Lumbar Paraspinals, QL, glut Mobilization Type Cross-Friction,Myofascial Release,Sustained Pressure Intensity/Depth Moderate Body Position Prone Joint Mobilizations Lumbar Spine Joint L1-5 Direction P->A Grade III Body Position Prone PT-OP-R Modalities Start: 11/12/19 17:31 Freq: Status: Active Protocol: Document 12/26/19 09:45 DCW (Rec: 12/26/19 10:30 DCW [id number]) Electric Stimulation Electric Stimulation Interferential Current (IFC) Body Location Low back Duration (Minutes) 15 Cycle Continuous Patient Position Sidelying Combined With Heat/Cold Hot Pack PT-OP-T Assessment and Plan Start: 11/12/19 17:31 Freq: Status: Active Protocol: Document 12/26/19 09:45 DCW (Rec: 12/26/19 10:30 DCW [id number]) Physical Therapy Assessment Impairments Impairments Functional Mobility,Pain, Posture,ROM,Tone Goals Three Impairment Pt presents with hypertonia along lumbar paraspinals and piriformis It Help Desk Manager Goal (LTG) Pt to display mild tone in paraspinals and piriformis LTG Duration 02/07/20 Two Impairment Pt exhibits negligible lumbar spine mobility Short Term Goal (STG) Pt to increase lumbar flexion ROM to 10? STG Duration 12/24/19 It Help Desk Manager Goal (LTG) Pt to demonstrate enough improved ROM to put lotion on her right lateral ankle LTG Duration 02/07/20 One Impairment Pt does not have an appropriate home exercise program Short Term Goal (STG) Pt to be independent and compliant with an appropriate HEP STG Duration 12/13/19 Assessment Summary Assessment Pt always feels much better following therapy, but then worsens over the rest of the week until coming back. Focus more on HEP to help maintain improved pain and functional levels between PT sessions. Physical Therapy Plan Frequency and Duration Frequency of Treatment 2x/Week Duration of Treatment 12 weeks Plan of Care Start Date 11/12/19 Plan of Care End Date 02/03/20 Therapeutic Interventions Therapeutic Interventions Home Exercise Program,Joint Mobilizations,Manual Therapy, Patient/Caregiver Education, Self-Care/Home Management,Soft Tissue Mobilization, Therapeutic Exercises Modalities Cold Pack/Ice Massage,Hot Packs,Ultrasound Next Visit Focus/Plan Next Note Type Treatment Note Next Visit Plan Progress lumbar flexion and flexbility of her low back and hips and strengthening.
--- NOTE | 2019-12-30 10:29 | PT.OTN ---
Current Diagnoses Stiffness of unspecified joint, not elsewhere classified (12/30/19) Stiffness of unspecified hip, not elsewhere classified (12/30/19) Low back pain (12/30/19) Physical Therapy Treatment Note PT-OP-A Visit Information Start: 11/12/19 17:31 Freq: Status: Active Protocol: Document 12/30/19 09:49 DCW (Rec: 12/30/19 10:29 DCW [id number]) Out-Patient Physical Therapy Visit Information Visit Information Visit Type Treatment Note Visit Start Time 09:49 Visit Stop Time 10:34 Total Visit Minutes 45 Visit Number 14 Number of CHESTNUT TANNER Visits 0 Evaluation Information Evaluation Date 11/12/19 PT-OP-B Current Condition Start: 11/12/19 17:31 Freq: Status: Active Protocol: Document 11/12/19 16:45 DCW (Rec: 11/12/19 17:55 DCW [id number]) Current Condition History of Current Condition Onset Date 2006, worsening over last month Current Complaints Low back pain, severe stiffness in lumbar spine and hips History of Current Condition Pt is a 74 year old female presenting with a history of low back and hip pain. Pt notes that she fell down stairs in 2006, fracturing her pelvis in three places. Pt has had some progressing stiffness in the years since then, but over the last month, has become much worse. 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 Treatment Goals Patient/Caregiver Goals I'm very much troubled from the stiffness in my back. PT-OP-C Subjective Start: 11/12/19 17:31 Freq: Status: Active Protocol: Document 12/30/19 09:49 DCW (Rec: 12/30/19 10:29 DCW [id number]) OP-PT Subjective Patient Comments Patient Comments Pt still pretty sore today. Reports she is considering using some CBD cream to help with her pain. Pt still not noticing a difference with use of e-stim. PT-OP-F Manual Assessment Start: 11/12/19 17:31 Freq: Status: Active Protocol: Document 11/12/19 16:45 DCW (Rec: 11/12/19 17:55 DCW [id number]) Manual Assessments Soft Tissue Assessment Soft Tissue Mobility Assessment Moderate tone throughout bilateral paraspinals, piriformis, no real complaints of tenderness to palpation Joint Mobility Assessment Joint Mobility Assessment Severe hypomobility of lumbar spine upon palpation PT-OP-K Range of Motion Start: 11/12/19 17:31 Freq: Status: Active Protocol: Document 11/12/19 16:45 DCW (Rec: 11/13/19 09:32 DCW [id number]) Lumbar Spine Range of Motion Lumbar Spine Active Degrees Testing Position Standing Flexion 0 Extension 2 ROM Limitations Bony Restriction Comments Patient's flexion ROM is entirely from hips, does no exhibit any vertebral movement when bending forward PT-OP-L Special Tests Start: 11/12/19 17:31 Freq: Status: Active Protocol: Document 11/12/19 16:45 DCW (Rec: 11/13/19 09:32 DCW [id number]) Special Tests Lumbar Spine Special Tests Double Knee to Chest Test Results Causes bilateral low back pain Slump Test Results Negative Vertical Spine Loading Test Results Negative Straight Leg Raise Test Results Positive: Ipsilateral pain bilaterally Manual Traction Test Results Negative Hip Special Tests MADDIE Test Results Minimal hip mobility PT-OP-M Strength Start: 11/12/19 17:31 Freq: Status: Active Protocol: Document 11/12/19 16:45 DCW (Rec: 11/13/19 09:32 DCW [id number]) Trunk Strength Trunk Manual Muscle Testing Core Stabilization Excellent core contraction, able to hold vs leg movement, begins to fatigue. 4/5 Hip Strength Hip Manual Muscle Testing Right Flexion (L2) 4+ Good+ Abduction 5 Normal Adduction 5 Normal External Rotation 4+ Good+ Internal Rotation 5 Normal Left Flexion (L2) 4+ Good+ Abduction 5 Normal Adduction 5 Normal External Rotation 4+ Good+ Internal Rotation 5 Normal Knee Strength Knee Manual Muscle Testing Right Flexion (S2) 5 Normal Extension (L3) 5 Normal Left Flexion (S2) 5 Normal Extension (L3) 5 Normal Ankle/Foot Strength Ankle and Foot Manual Muscle Testing Right Dorsiflexion (L4) 5 Normal Plantarflexion (S1) 5 Normal Left Dorsiflexion (L4) 5 Normal Plantarflexion (S1) 5 Normal PT-OP-Q Treatments Start: 11/12/19 17:31 Freq: Status: Active Protocol: Document 12/30/19 09:49 DCW (Rec: 12/30/19 10:29 DCW [id number]) Cardio Equipment Recumbent Elliptical (Biodex) Duration (Minutes) 5 Resistance 5 Seat Position 7 Gym Equipment Therapeutic Ball 2 Exercise Details Pelvic tilts, pelvic circles Ball Size/Color Green - 65 cm Body Position Sitting Therapeutic Exercises Supine Exercises SLR Supine Exercise Name PPT /c TrA - Alternating SLR pelvic tilts Supine Exercise Name PPT /c TrA contraction Reps/Minutes 5 hold core march Supine Exercise Name core june Reps/Minutes 5 reps each x2-3 sets Manual Therapy Treatment Soft Tissue Mobilization 2 Body Location B Psoas Mobilization Type Myofascial Release,Sustained Pressure 1 Body Location L Lumbar Paraspinals, QL, glut Mobilization Type Cross-Friction,Myofascial Release,Sustained Pressure Intensity/Depth Moderate Body Position Prone Joint Mobilizations Lumbar Spine Joint L1-5 Direction P->A Grade III Body Position Prone PT-OP-R Modalities Start: 11/12/19 17:31 Freq: Status: Active Protocol: Document 12/30/19 09:49 DCW (Rec: 12/30/19 10:29 DCW [id number]) Hot Pack/Cold Pack Treatment Hot Pack Location low back Patient Position Hooklying Treatment Duration (minutes) 10 Patient Tolerance Good Comments legs in 90/90 degree position PT-OP-T Assessment and Plan Start: 11/12/19 17:31 Freq: Status: Active Protocol: Document 12/30/19 09:49 DCW (Rec: 12/30/19 10:29 DCW [id number]) Physical Therapy Assessment Impairments Impairments Functional Mobility,Pain, Posture,ROM,Tone Goals Three Impairment Pt presents with hypertonia along lumbar paraspinals and piriformis Equal Opportunity Director Goal (LTG) Pt to display mild tone in paraspinals and piriformis LTG Duration 02/07/20 Two Impairment Pt exhibits negligible lumbar spine mobility Short Term Goal (STG) Pt to increase lumbar flexion ROM to 10? STG Duration 12/24/19 Equal Opportunity Director Goal (LTG) Pt to demonstrate enough improved ROM to put lotion on her right lateral ankle LTG Duration 02/07/20 One Impairment Pt does not have an appropriate home exercise program Short Term Goal (STG) Pt to be independent and compliant with an appropriate HEP STG Duration 12/13/19 Assessment Summary Assessment Pt still just not progressing well overall, may be nearing time to return to PCP for next option. Physical Therapy Plan Frequency and Duration Frequency of Treatment 2x/Week Duration of Treatment 12 weeks Plan of Care Start Date 11/12/19 Plan of Care End Date 02/03/20 Therapeutic Interventions Therapeutic Interventions Home Exercise Program,Joint Mobilizations,Manual Therapy, Patient/Caregiver Education, Self-Care/Home Management,Soft Tissue Mobilization, Therapeutic Exercises Modalities Cold Pack/Ice Massage,Hot Packs,Ultrasound Next Visit Focus/Plan Next Note Type Treatment Note Next Visit Plan Progress lumbar flexion and flexbility of her low back and hips and strengthening.
--- NOTE | 2020-01-01 10:30 | PT.OTN ---
Current Diagnoses Stiffness of unspecified joint, not elsewhere classified (01/01/20) Stiffness of unspecified hip, not elsewhere classified (01/01/20) Low back pain (01/01/20) Physical Therapy Treatment Note PT-OP-A Visit Information Start: 11/12/19 17:31 Freq: Status: Active Protocol: Document 01/01/20 09:50 DCW (Rec: 01/01/20 10:30 DCW [id number]) Out-Patient Physical Therapy Visit Information Visit Information Visit Type Treatment Note Visit Start Time 09:50 Visit Stop Time 10:35 Total Visit Minutes 45 Visit Number 15 Number of HEAD TENNIS COACH Visits 0 Evaluation Information Evaluation Date 11/12/19 PT-OP-B Current Condition Start: 11/12/19 17:31 Freq: Status: Active Protocol: Document 11/12/19 16:45 DCW (Rec: 11/12/19 17:55 DCW [id number]) Current Condition History of Current Condition Onset Date 2006, worsening over last month Current Complaints Low back pain, severe stiffness in lumbar spine and hips History of Current Condition Pt is a 74 year old female presenting with a history of low back and hip pain. Pt notes that she fell down stairs in 2006, fracturing her pelvis in three places. Pt has had some progressing stiffness in the years since then, but over the last month, has become much worse. 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 Treatment Goals Patient/Caregiver Goals I'm very much troubled from the stiffness in my back. PT-OP-C Subjective Start: 11/12/19 17:31 Freq: Status: Active Protocol: Document 01/01/20 09:50 DCW (Rec: 01/01/20 10:30 DCW [id number]) OP-PT Subjective Patient Comments Patient Comments Pt reports she had x-rays of her lumbar and sacral spine taken yesterday. PT-OP-F Manual Assessment Start: 11/12/19 17:31 Freq: Status: Active Protocol: Document 11/12/19 16:45 DCW (Rec: 11/12/19 17:55 DCW [id number]) Manual Assessments Soft Tissue Assessment Soft Tissue Mobility Assessment Moderate tone throughout bilateral paraspinals, piriformis, no real complaints of tenderness to palpation Joint Mobility Assessment Joint Mobility Assessment Severe hypomobility of lumbar spine upon palpation PT-OP-K Range of Motion Start: 11/12/19 17:31 Freq: Status: Active Protocol: Document 11/12/19 16:45 DCW (Rec: 11/13/19 09:32 DCW [id number]) Lumbar Spine Range of Motion Lumbar Spine Active Degrees Testing Position Standing Flexion 0 Extension 2 ROM Limitations Bony Restriction Comments Patient's flexion ROM is entirely from hips, does no exhibit any vertebral movement when bending forward PT-OP-L Special Tests Start: 11/12/19 17:31 Freq: Status: Active Protocol: Document 11/12/19 16:45 DCW (Rec: 11/13/19 09:32 DCW [id number]) Special Tests Lumbar Spine Special Tests Double Knee to Chest Test Results Causes bilateral low back pain Slump Test Results Negative Vertical Spine Loading Test Results Negative Straight Leg Raise Test Results Positive: Ipsilateral pain bilaterally Manual Traction Test Results Negative Hip Special Tests MADDIE Test Results Minimal hip mobility PT-OP-M Strength Start: 11/12/19 17:31 Freq: Status: Active Protocol: Document 11/12/19 16:45 DCW (Rec: 11/13/19 09:32 DCW [id number]) Trunk Strength Trunk Manual Muscle Testing Core Stabilization Excellent core contraction, able to hold vs leg movement, begins to fatigue. 4/5 Hip Strength Hip Manual Muscle Testing Right Flexion (L2) 4+ Good+ Abduction 5 Normal Adduction 5 Normal External Rotation 4+ Good+ Internal Rotation 5 Normal Left Flexion (L2) 4+ Good+ Abduction 5 Normal Adduction 5 Normal External Rotation 4+ Good+ Internal Rotation 5 Normal Knee Strength Knee Manual Muscle Testing Right Flexion (S2) 5 Normal Extension (L3) 5 Normal Left Flexion (S2) 5 Normal Extension (L3) 5 Normal Ankle/Foot Strength Ankle and Foot Manual Muscle Testing Right Dorsiflexion (L4) 5 Normal Plantarflexion (S1) 5 Normal Left Dorsiflexion (L4) 5 Normal Plantarflexion (S1) 5 Normal PT-OP-Q Treatments Start: 11/12/19 17:31 Freq: Status: Active Protocol: Document 01/01/20 09:50 DCW (Rec: 01/01/20 10:30 DCW [id number]) Cardio Equipment Recumbent Stepper (Sci-Fit) Duration (Minutes) 5 Resistance 3 Seat Position 9 Gym Equipment Therapeutic Ball 2 Exercise Details Pelvic tilts, pelvic circles Ball Size/Color Green - 65 cm Body Position Sitting 1 Exercise Details Trunk Rotation vs Resistance Ball Size/Color Green - 65 cm Body Position Sitting Therapeutic Exercises Standing Exercises Hip Hiking Standing Exercise Name Hip hiking Side bilateral Reps/Minutes 6 step Manual Therapy Treatment Soft Tissue Mobilization 2 Body Location B Psoas Mobilization Type Myofascial Release,Sustained Pressure 1 Body Location L Lumbar Paraspinals, QL, glut Mobilization Type Cross-Friction,Myofascial Release,Sustained Pressure Intensity/Depth Moderate Body Position Prone Joint Mobilizations Lumbar Spine Joint L1-5 Direction P->A Grade III Body Position Prone PT-OP-R Modalities Start: 11/12/19 17:31 Freq: Status: Active Protocol: Document 01/01/20 09:50 DCW (Rec: 01/01/20 10:30 DCW [id number]) Hot Pack/Cold Pack Treatment Hot Pack Location low back Patient Position Hooklying Treatment Duration (minutes) 10 Patient Tolerance Good Comments legs in 90/90 degree position PT-OP-T Assessment and Plan Start: 11/12/19 17:31 Freq: Status: Active Protocol: Document 01/01/20 09:50 DCW (Rec: 01/01/20 10:30 DCW [id number]) Physical Therapy Assessment Impairments Impairments Functional Mobility,Pain, Posture,ROM,Tone Goals Three Impairment Pt presents with hypertonia along lumbar paraspinals and piriformis Voice Data Communications Engineer Goal (LTG) Pt to display mild tone in paraspinals and piriformis LTG Duration 02/07/20 Two Impairment Pt exhibits negligible lumbar spine mobility Short Term Goal (STG) Pt to increase lumbar flexion ROM to 10? STG Duration 12/24/19 Voice Data Communications Engineer Goal (LTG) Pt to demonstrate enough improved ROM to put lotion on her right lateral ankle LTG Duration 02/07/20 One Impairment Pt does not have an appropriate home exercise program Short Term Goal (STG) Pt to be independent and compliant with an appropriate HEP STG Duration 12/13/19 Assessment Summary Assessment Pt feeling more sore today, although tolerated treatment well, and felt better following STM. Physical Therapy Plan Frequency and Duration Frequency of Treatment 2x/Week Duration of Treatment 12 weeks Plan of Care Start Date 11/12/19 Plan of Care End Date 02/03/20 Therapeutic Interventions Therapeutic Interventions Home Exercise Program,Joint Mobilizations,Manual Therapy, Patient/Caregiver Education, Self-Care/Home Management,Soft Tissue Mobilization, Therapeutic Exercises Modalities Cold Pack/Ice Massage,Hot Packs,Ultrasound Next Visit Focus/Plan Next Note Type Treatment Note Next Visit Plan Progress lumbar flexion and flexbility of her low back and hips and strengthening.
--- NOTE | 2020-01-07 13:50 | PT.OTN ---
Current Diagnoses Stiffness of unspecified joint, not elsewhere classified (01/07/20) Stiffness of unspecified hip, not elsewhere classified (01/07/20) Low back pain (01/07/20) Physical Therapy Treatment Note PT-OP-A Visit Information Start: 11/12/19 17:31 Freq: Status: Active Protocol: Document 01/07/20 13:04 SP (Rec: 01/07/20 14:24 SP [id number]) Out-Patient Physical Therapy Visit Information Visit Information Visit Type Treatment Note Visit Start Time 13:04 Visit Stop Time 13:50 Total Visit Minutes 56 Visit Number 16 Number of TUBE ROOM CASHIER Visits 1 PT-OP-B Current Condition Start: 11/12/19 17:31 Freq: Status: Active Protocol: Document 11/12/19 16:45 DCW (Rec: 11/12/19 17:55 DCW [id number]) Current Condition History of Current Condition Onset Date 2006, worsening over last month Current Complaints Low back pain, severe stiffness in lumbar spine and hips History of Current Condition Pt is a 74 year old female presenting with a history of low back and hip pain. Pt notes that she fell down stairs in 2006, fracturing her pelvis in three places. Pt has had some progressing stiffness in the years since then, but over the last month, has become much worse. 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 Treatment Goals Patient/Caregiver Goals I'm very much troubled from the stiffness in my back. PT-OP-C Subjective Start: 11/12/19 17:31 Freq: Status: Active Protocol: Document 01/07/20 13:04 SP (Rec: 01/07/20 14:24 SP [id number]) OP-PT Subjective Patient Comments Patient Comments Pt reported having a grabby twang over L SI 5-6/10 when coming to stand and sit in to chair. Pt stated has difficulty crossing legs and putting shoes/socks on, shaving unable to get to lower leg. Pt has been carrying and replacing mulch in tiered yard and probably isn't helping. Pt also reported pain / irritation L SI with ascending stairs, unable to carry things needing to use rail for support. Patient Reported Progress Worse PT-OP-F Manual Assessment Start: 11/12/19 17:31 Freq: Status: Active Protocol: Document 11/12/19 16:45 DCW (Rec: 11/12/19 17:55 DCW [id number]) Manual Assessments Soft Tissue Assessment Soft Tissue Mobility Assessment Moderate tone throughout bilateral paraspinals, piriformis, no real complaints of tenderness to palpation Joint Mobility Assessment Joint Mobility Assessment Severe hypomobility of lumbar spine upon palpation PT-OP-K Range of Motion Start: 11/12/19 17:31 Freq: Status: Active Protocol: Document 11/12/19 16:45 DCW (Rec: 11/13/19 09:32 DCW [id number]) Lumbar Spine Range of Motion Lumbar Spine Active Degrees Testing Position Standing Flexion 0 Extension 2 ROM Limitations Bony Restriction Comments Patient's flexion ROM is entirely from hips, does no exhibit any vertebral movement when bending forward PT-OP-L Special Tests Start: 11/12/19 17:31 Freq: Status: Active Protocol: Document 11/12/19 16:45 DCW (Rec: 11/13/19 09:32 DCW [id number]) Special Tests Lumbar Spine Special Tests Double Knee to Chest Test Results Causes bilateral low back pain Slump Test Results Negative Vertical Spine Loading Test Results Negative Straight Leg Raise Test Results Positive: Ipsilateral pain bilaterally Manual Traction Test Results Negative Hip Special Tests MADDIE Test Results Minimal hip mobility PT-OP-M Strength Start: 11/12/19 17:31 Freq: Status: Active Protocol: Document 11/12/19 16:45 DCW (Rec: 11/13/19 09:32 DCW [id number]) Trunk Strength Trunk Manual Muscle Testing Core Stabilization Excellent core contraction, able to hold vs leg movement, begins to fatigue. 4/5 Hip Strength Hip Manual Muscle Testing Right Flexion (L2) 4+ Good+ Abduction 5 Normal Adduction 5 Normal External Rotation 4+ Good+ Internal Rotation 5 Normal Left Flexion (L2) 4+ Good+ Abduction 5 Normal Adduction 5 Normal External Rotation 4+ Good+ Internal Rotation 5 Normal Knee Strength Knee Manual Muscle Testing Right Flexion (S2) 5 Normal Extension (L3) 5 Normal Left Flexion (S2) 5 Normal Extension (L3) 5 Normal Ankle/Foot Strength Ankle and Foot Manual Muscle Testing Right Dorsiflexion (L4) 5 Normal Plantarflexion (S1) 5 Normal Left Dorsiflexion (L4) 5 Normal Plantarflexion (S1) 5 Normal PT-OP-Q Treatments Start: 11/12/19 17:31 Freq: Status: Active Protocol: Document 01/07/20 13:04 SP (Rec: 01/07/20 14:24 SP [id number]) Therapeutic Exercises Supine Exercises pelvis realignment ex Supine Exercise Name isometric hip add, lift, hip ext isometric Side bilateral Reps/Minutes 3 sec hold x5 each Manual Therapy Treatment Soft Tissue Mobilization ES w/ M HP Body Location L SI Body Position Sidelying Comments 10 min, IFC Intensity 21 1 Body Location L QL, glut Mobilization Type Cross-Friction,Myofascial Release,Sustained Pressure Intensity/Depth Moderate Body Position Prone Manual Traction LS traction w / strap Details decompress LS/ SI Body Position Supine Reps/Duration 30 sec x3 Comments no change or distraction felt. Taping SI K taping Body Location X compression across SI Treatment Focus compression support Type of Tape K taping Skin Inspection intact, normal color Comments feels like little more supported PT-OP-R Modalities Start: 11/12/19 17:31 Freq: Status: Active Protocol: Document 01/01/20 09:50 DCW (Rec: 01/01/20 10:30 DCW [id number]) Hot Pack/Cold Pack Treatment Hot Pack Location low back Patient Position Hooklying Treatment Duration (minutes) 10 Patient Tolerance Good Comments legs in 90/90 degree position PT-OP-T Assessment and Plan Start: 11/12/19 17:31 Freq: Status: Active Protocol: Document 01/07/20 13:04 SP (Rec: 01/07/20 14:24 SP [id number]) Physical Therapy Assessment Goals Three Impairment Pt presents with hypertonia along lumbar paraspinals and piriformis Prison Goal (LTG) Pt to display mild tone in paraspinals and piriformis LTG Duration 02/07/20 Two Impairment Pt exhibits negligible lumbar spine mobility Short Term Goal (STG) Pt to increase lumbar flexion ROM to 10? STG Duration 12/24/19 Dust Mop Maker Goal (LTG) Pt to demonstrate enough improved ROM to put lotion on her right lateral ankle LTG Duration 02/07/20 One Impairment Pt does not have an appropriate home exercise program Short Term Goal (STG) Pt to be independent and compliant with an appropriate HEP STG Duration 12/13/19 Assessment Summary Assessment Assessed pelvic alignment, looked good. Initiatially provided manual over L glut, QL and over L SI where directed having pain, initiated pelvic alignment ex today for HEP (forgot take handout, give next tx), and applied K taping X for SI compression and stabilization with good results feels like holding the area better. Pt was welcoming to ES w/ MHP end of tx for pain on L side lying and reported no pain, I am able to do standing hip circles, much better. Pt stated hasn't been able to go to pool to do ex HEP due to mole burning waiting to heal but does help feel better, stronger that can't do on land as easy. Physical Therapy Plan Frequency and Duration Frequency of Treatment 2x/Week Duration of Treatment 12 weeks Plan of Care Start Date 11/12/19 Plan of Care End Date 02/03/20 Therapeutic Interventions Therapeutic Interventions Home Exercise Program,Joint Mobilizations,Manual Therapy, Patient/Caregiver Education, Self-Care/Home Management,Soft Tissue Mobilization, Therapeutic Exercises Modalities Cold Pack/Ice Massage,Hot Packs,Ultrasound Next Visit Focus/Plan Next Note Type Treatment Note Next Visit Plan Assess response to last tx : manual, Ktaping, initiated pelvic realignment ex, modalities and how did with reported continued [place] outdoor project, suggested get son to do/ help. Progress lumbar flexion and flexbility of her low back and hips and strengthening to allow for donning shoes/socks/ shave legs.
--- NOTE | 2020-01-13 14:32 | PT.OTN ---
Addendum entered and electronically signed by Luna Bhatti PTA 01/13/20 15:46: Pt commented that I do get little dizzy and off balance when get up at times, wondering if need to have another apley's maneuver done again, but would need to move quickly and unsure if my back can do that right now. Original Note: Current Diagnoses Stiffness of unspecified joint, not elsewhere classified (01/13/20) Stiffness of unspecified hip, not elsewhere classified (01/13/20) Low back pain (01/13/20) Physical Therapy Treatment Note PT-OP-A Visit Information Start: 11/12/19 17:31 Freq: Status: Active Protocol: Document 01/13/20 13:57 SP (Rec: 01/13/20 15:45 SP [id number]) Out-Patient Physical Therapy Visit Information Visit Information Visit Type Treatment Note Visit Start Time 13:57 Visit Stop Time 14:32 Total Visit Minutes 35 Visit Number 17 Number of FILTER CHANGING TECHNICIAN Visits 2 PT-OP-B Current Condition Start: 11/12/19 17:31 Freq: Status: Active Protocol: Document 11/12/19 16:45 DCW (Rec: 11/12/19 17:55 DCW [id number]) Current Condition History of Current Condition Onset Date 2006, worsening over last month Current Complaints Low back pain, severe stiffness in lumbar spine and hips History of Current Condition Pt is a 74 year old female presenting with a history of low back and hip pain. Pt notes that she fell down stairs in 2006, fracturing her pelvis in three places. Pt has had some progressing stiffness in the years since then, but over the last month, has become much worse. 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 Treatment Goals Patient/Caregiver Goals I'm very much troubled from the stiffness in my back. PT-OP-C Subjective Start: 11/12/19 17:31 Freq: Status: Active Protocol: Document 01/13/20 13:57 SP (Rec: 01/13/20 15:45 SP [id number]) OP-PT Subjective Patient Comments Patient Comments Pt reported LBP worse acute grabbing spasms since last tx. I was able to spread my mulch one bag at a time. Pt stated X SI K taping helped alot, lasted 4 days. PT-OP-F Manual Assessment Start: 11/12/19 17:31 Freq: Status: Active Protocol: Document 11/12/19 16:45 DCW (Rec: 11/12/19 17:55 DCW [id number]) Manual Assessments Soft Tissue Assessment Soft Tissue Mobility Assessment Moderate tone throughout bilateral paraspinals, piriformis, no real complaints of tenderness to palpation Joint Mobility Assessment Joint Mobility Assessment Severe hypomobility of lumbar spine upon palpation PT-OP-K Range of Motion Start: 11/12/19 17:31 Freq: Status: Active Protocol: Document 11/12/19 16:45 DCW (Rec: 11/13/19 09:32 DCW [id number]) Lumbar Spine Range of Motion Lumbar Spine Active Degrees Testing Position Standing Flexion 0 Extension 2 ROM Limitations Bony Restriction Comments Patient's flexion ROM is entirely from hips, does no exhibit any vertebral movement when bending forward PT-OP-L Special Tests Start: 11/12/19 17:31 Freq: Status: Active Protocol: Document 11/12/19 16:45 DCW (Rec: 11/13/19 09:32 DCW [id number]) Special Tests Lumbar Spine Special Tests Double Knee to Chest Test Results Causes bilateral low back pain Slump Test Results Negative Vertical Spine Loading Test Results Negative Straight Leg Raise Test Results Positive: Ipsilateral pain bilaterally Manual Traction Test Results Negative Hip Special Tests MADDIE Test Results Minimal hip mobility PT-OP-M Strength Start: 11/12/19 17:31 Freq: Status: Active Protocol: Document 11/12/19 16:45 DCW (Rec: 11/13/19 09:32 DCW [id number]) Trunk Strength Trunk Manual Muscle Testing Core Stabilization Excellent core contraction, able to hold vs leg movement, begins to fatigue. 4/5 Hip Strength Hip Manual Muscle Testing Right Flexion (L2) 4+ Good+ Abduction 5 Normal Adduction 5 Normal External Rotation 4+ Good+ Internal Rotation 5 Normal Left Flexion (L2) 4+ Good+ Abduction 5 Normal Adduction 5 Normal External Rotation 4+ Good+ Internal Rotation 5 Normal Knee Strength Knee Manual Muscle Testing Right Flexion (S2) 5 Normal Extension (L3) 5 Normal Left Flexion (S2) 5 Normal Extension (L3) 5 Normal Ankle/Foot Strength Ankle and Foot Manual Muscle Testing Right Dorsiflexion (L4) 5 Normal Plantarflexion (S1) 5 Normal Left Dorsiflexion (L4) 5 Normal Plantarflexion (S1) 5 Normal PT-OP-Q Treatments Start: 11/12/19 17:31 Freq: Status: Active Protocol: Document 01/13/20 13:57 SP (Rec: 01/13/20 15:45 SP [id number]) Therapeutic Exercises Supine Exercises sylvester stretch Side left Reps/Minutes 10 then stopped due to not tolerated in LB on L pelvis realignment ex Supine Exercise Name isometric hip add, lift, hip ext isometric Side bilateral Reps/Minutes 3 sec hold x5 each LTR Supine Exercise Name review HEP Side bilateral Reps/Minutes 2 sec hold x5 Comments cuing PPT awareness decrease LB arch recruitment isometric adduction Supine Exercise Name isometric adduction review HEP Reps/Minutes 5 sec hold x 10 Comments Manual ADD, ABD Prone Exercises cat camel Reps/Minutes 2 sec hold x5 Comments cued PPT Manual Therapy Treatment Soft Tissue Mobilization ES w/ M HP Body Location L>R pirformis, paraspinal, QL Mobilization Type Cross-Friction,Myofascial Release,Trigger Point Release Intensity/Depth Superficial Body Position Prone Comments PROM hip IR/ ER Manual Traction LS traction w / strap Details decompress hip/LS/ SI Body Position Supine Reps/Duration 30 sec x3 Comments LOng leg pull Taping SI K taping Body Location X compression across SI Treatment Focus compression support Type of Tape K taping Skin Inspection intact, normal color Comments this taping does help give little more support. PT-OP-R Modalities Start: 11/12/19 17:31 Freq: Status: Active Protocol: Document 01/01/20 09:50 DCW (Rec: 01/01/20 10:30 DCW [id number]) Hot Pack/Cold Pack Treatment Hot Pack Location low back Patient Position Hooklying Treatment Duration (minutes) 10 Patient Tolerance Good Comments legs in 90/90 degree position PT-OP-T Assessment and Plan Start: 11/12/19 17:31 Freq: Status: Active Protocol: Document 01/13/20 13:57 SP (Rec: 01/13/20 15:45 SP [id number]) Physical Therapy Assessment Goals Three Impairment Pt presents with hypertonia along lumbar paraspinals and piriformis Jail Goal (LTG) Pt to display mild tone in paraspinals and piriformis LTG Duration 02/07/20 Two Impairment Pt exhibits negligible lumbar spine mobility Short Term Goal (STG) Pt to increase lumbar flexion ROM to 10? STG Duration 12/24/19 Cash Posting Representative Goal (LTG) Pt to demonstrate enough improved ROM to put lotion on her right lateral ankle LTG Duration 02/07/20 One Impairment Pt does not have an appropriate home exercise program Short Term Goal (STG) Pt to be independent and compliant with an appropriate HEP STG Duration 12/13/19 Assessment Summary Assessment Pt continues to experience LBP described as grabbing/ spasming pain mostly on L more this past week. Improved little more post manual, stretching, Pelvis realignment ex end of tx then retaping across SI for added compression support from 09/17 to 10 when left. Rediscussed maybe finding someone else to spread mulch to allow LB to recover. Physical Therapy Plan Frequency and Duration Frequency of Treatment 2x/Week Duration of Treatment 12 weeks Plan of Care Start Date 11/12/19 Plan of Care End Date 02/03/20 Therapeutic Interventions Therapeutic Interventions Home Exercise Program,Joint Mobilizations,Manual Therapy, Patient/Caregiver Education, Self-Care/Home Management,Soft Tissue Mobilization, Therapeutic Exercises Modalities Cold Pack/Ice Massage,Hot Packs,Ultrasound Next Visit Focus/Plan Next Note Type Treatment Note Next Visit Plan Assess response to last tx : manual, Ktaping, pelvic realignment ex, modalities and how did with reported continued mulch outdoor project, suggested get son to do/ help. Progress lumbar flexion and flexbility of her low back and hips and strengthening to allow for donning shoes/socks/ shave legs.
--- NOTE | 2020-01-16 13:52 | PT.OTN ---
Current Diagnoses Stiffness of unspecified joint, not elsewhere classified (01/16/20) Stiffness of unspecified hip, not elsewhere classified (01/16/20) Low back pain (01/16/20) Physical Therapy Treatment Note PT-OP-A Visit Information Start: 11/12/19 17:31 Freq: Status: Active Protocol: Document 01/16/20 13:01 SP (Rec: 01/16/20 14:10 SP [id number]) Out-Patient Physical Therapy Visit Information Visit Information Visit Type Treatment Note Visit Start Time 13:01 Visit Stop Time 13:52 Total Visit Minutes 51 Visit Number 18 Number of VP AD PRODUCTS AND PLANNING Visits 3 PT-OP-B Current Condition Start: 11/12/19 17:31 Freq: Status: Active Protocol: Document 11/12/19 16:45 DCW (Rec: 11/12/19 17:55 DCW [id number]) Current Condition History of Current Condition Onset Date 2006, worsening over last month Current Complaints Low back pain, severe stiffness in lumbar spine and hips History of Current Condition Pt is a 74 year old female presenting with a history of low back and hip pain. Pt notes that she fell down stairs in 2006, fracturing her pelvis in three places. Pt has had some progressing stiffness in the years since then, but over the last month, has become much worse. 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 Treatment Goals Patient/Caregiver Goals I'm very much troubled from the stiffness in my back. 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 Pt reported received MRI results and has spinal stenosis and maybe why spasming more lately expecially when flexes trunk forward and turns or ascending stairs with LLE, not strong and supportive. PT-OP-F Manual Assessment Start: 11/12/19 17:31 Freq: Status: Active Protocol: Document 11/12/19 16:45 DCW (Rec: 11/12/19 17:55 DCW [id number]) Manual Assessments Soft Tissue Assessment Soft Tissue Mobility Assessment Moderate tone throughout bilateral paraspinals, piriformis, no real complaints of tenderness to palpation Joint Mobility Assessment Joint Mobility Assessment Severe hypomobility of lumbar spine upon palpation PT-OP-K Range of Motion Start: 11/12/19 17:31 Freq: Status: Active Protocol: Document 11/12/19 16:45 DCW (Rec: 11/13/19 09:32 DCW [id number]) Lumbar Spine Range of Motion Lumbar Spine Active Degrees Testing Position Standing Flexion 0 Extension 2 ROM Limitations Bony Restriction Comments Patient's flexion ROM is entirely from hips, does no exhibit any vertebral movement when bending forward PT-OP-L Special Tests Start: 11/12/19 17:31 Freq: Status: Active Protocol: Document 11/12/19 16:45 DCW (Rec: 11/13/19 09:32 DCW [id number]) Special Tests Lumbar Spine Special Tests Double Knee to Chest Test Results Causes bilateral low back pain Slump Test Results Negative Vertical Spine Loading Test Results Negative Straight Leg Raise Test Results Positive: Ipsilateral pain bilaterally Manual Traction Test Results Negative Hip Special Tests MADDIE Test Results Minimal hip mobility PT-OP-M Strength Start: 11/12/19 17:31 Freq: Status: Active Protocol: Document 11/12/19 16:45 DCW (Rec: 11/13/19 09:32 DCW [id number]) Trunk Strength Trunk Manual Muscle Testing Core Stabilization Excellent core contraction, able to hold vs leg movement, begins to fatigue. 4/5 Hip Strength Hip Manual Muscle Testing Right Flexion (L2) 4+ Good+ Abduction 5 Normal Adduction 5 Normal External Rotation 4+ Good+ Internal Rotation 5 Normal Left Flexion (L2) 4+ Good+ Abduction 5 Normal Adduction 5 Normal External Rotation 4+ Good+ Internal Rotation 5 Normal Knee Strength Knee Manual Muscle Testing Right Flexion (S2) 5 Normal Extension (L3) 5 Normal Left Flexion (S2) 5 Normal Extension (L3) 5 Normal Ankle/Foot Strength Ankle and Foot Manual Muscle Testing Right Dorsiflexion (L4) 5 Normal Plantarflexion (S1) 5 Normal Left Dorsiflexion (L4) 5 Normal Plantarflexion (S1) 5 Normal PT-OP-Q Treatments Start: 11/12/19 17:31 Freq: Status: Active Protocol: Document 01/16/20 13:01 SP (Rec: 01/16/20 14:10 SP [id number]) Cardio Equipment Recumbent Stepper (Sci-Fit) Duration (Minutes) 6 Resistance 2 Seat Position 9 Other tolerated well, no pain, noted limited hip ROM Gym Equipment Therapeutic Ball TS rotation against resistance Exercise Details resisted rotation Tb #2 (cross arms chest) Ball Size/Color 65 cm Body Position Sitting Reps/Duration 2x10 B Comments cued upright posture Therapeutic Exercises Sitting Exercises Glut stretch Side bilateral Resistance AAROM Reps/Minutes 30 x2 QL stretch Sitting Exercise Name leaning arm on same leg side bend Side bilateral Reps/Minutes 30 sec x2 Comments cued not round back Standing Exercises shld ext/ pull down Resistance TB #2 Reps/Minutes 2x10 each Other Exercises theracane Other Exercise Name neck with head nods/ turns Comments cued to allow self STMs to gain ROM to look over shld driving (add [place] stre) Manual Therapy Treatment Soft Tissue Mobilization 1 Body Location L QL> glut Mobilization Type Cross-Friction,Myofascial Release,Sustained Pressure Intensity/Depth Moderate Body Position Sidelying Taping SI K taping Comments deferred today due to still good hold. Recommended discuss with Dr schmidt for SI belt knowing helps with L SI pain. PT-OP-R Modalities Start: 11/12/19 17:31 Freq: Status: Active Protocol: Document 01/01/20 09:50 DCW (Rec: 01/01/20 10:30 DCW [id number]) Hot Pack/Cold Pack Treatment Hot Pack Location low back Patient Position Hooklying Treatment Duration (minutes) 10 Patient Tolerance Good Comments legs in 90/90 degree position PT-OP-T Assessment and Plan Start: 11/12/19 17:31 Freq: Status: Active Protocol: Document 01/16/20 13:01 SP (Rec: 01/16/20 14:10 SP [id number]) Physical Therapy Assessment Goals Three Impairment Pt presents with hypertonia along lumbar paraspinals and piriformis Mcc Goal (LTG) Pt to display mild tone in paraspinals and piriformis LTG Duration 02/07/20 Two Impairment Pt exhibits negligible lumbar spine mobility Short Term Goal (STG) Pt to increase lumbar flexion ROM to 10? STG Duration 12/24/19 Expressive Art Therapist Goal (LTG) Pt to demonstrate enough improved ROM to put lotion on her right lateral ankle LTG Duration 02/07/20 One Impairment Pt does not have an appropriate home exercise program Short Term Goal (STG) Pt to be independent and compliant with an appropriate HEP STG Duration 12/13/19 Assessment Summary Assessment Pt reported received phone call regarding MRI results and will meet Dr Toussaint next week for follow up and addresssing occasional dizziness, unsure if PT assessing if Apley Maneuver would be beneficial. Pt responded well to tx manual and no adverse affects same L SI soreness and quick spasming with hip flex/ ER or L trunk rotation. Ok with standign added Tb strengthening core ex, seated stretching instruction for post long drive tomorrow to [place] [facility] to decrease LBP/ stiffness. Pt stated I feel looser when leaving. Physical Therapy Plan Frequency and Duration Frequency of Treatment 2x/Week Duration of Treatment 12 weeks Plan of Care Start Date 11/12/19 Plan of Care End Date 02/03/20 Therapeutic Interventions Therapeutic Interventions Home Exercise Program,Joint Mobilizations,Manual Therapy, Patient/Caregiver Education, Self-Care/Home Management,Soft Tissue Mobilization, Therapeutic Exercises Modalities Cold Pack/Ice Massage,Hot Packs,Ultrasound Next Visit Focus/Plan Next Note Type Treatment Note Next Visit Plan Assess if Ktaping needed, need pelvic alignment. Did Dr Toussaint order pelvic belt as we discussed could benefit from. Progress lumbar flexion and flexbility of her low back and hips and strengthening to allow for donning shoes/socks/ shave legs.
--- NOTE | 2020-01-21 16:51 | PT.OTN ---
Current Diagnoses Stiffness of unspecified joint, not elsewhere classified (01/21/20) Stiffness of unspecified hip, not elsewhere classified (01/21/20) Low back pain (01/21/20) Physical Therapy Treatment Note PT-OP-A Visit Information Start: 11/12/19 17:31 Freq: Status: Active Protocol: Document 01/21/20 16:00 DCW (Rec: 01/21/20 16:50 DCW [id number]) Out-Patient Physical Therapy Visit Information Visit Information Visit Type Treatment Note Visit Start Time 16:00 Visit Stop Time 16:45 Total Visit Minutes 45 Visit Number 19 Number of PUG MILL OPERATOR Visits 0 Evaluation Information Evaluation Date 11/12/19 PT-OP-B Current Condition Start: 11/12/19 17:31 Freq: Status: Active Protocol: Document 11/12/19 16:45 DCW (Rec: 11/12/19 17:55 DCW [id number]) Current Condition History of Current Condition Onset Date 2006, worsening over last month Current Complaints Low back pain, severe stiffness in lumbar spine and hips History of Current Condition Pt is a 74 year old female presenting with a history of low back and hip pain. Pt notes that she fell down stairs in 2006, fracturing her pelvis in three places. Pt has had some progressing stiffness in the years since then, but over the last month, has become much worse. 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 Treatment Goals Patient/Caregiver Goals I'm very much troubled from the stiffness in my back. PT-OP-C Subjective Start: 11/12/19 17:31 Freq: Status: Active Protocol: Document 01/21/20 16:00 DCW (Rec: 01/21/20 16:50 DCW [id number]) OP-PT Subjective Patient Comments Patient Comments Pt arrives today with a perscription for pevlic/SI belt to assist with SI compression PT-OP-F Manual Assessment Start: 11/12/19 17:31 Freq: Status: Active Protocol: Document 11/12/19 16:45 DCW (Rec: 11/12/19 17:55 DCW [id number]) Manual Assessments Soft Tissue Assessment Soft Tissue Mobility Assessment Moderate tone throughout bilateral paraspinals, piriformis, no real complaints of tenderness to palpation Joint Mobility Assessment Joint Mobility Assessment Severe hypomobility of lumbar spine upon palpation PT-OP-K Range of Motion Start: 11/12/19 17:31 Freq: Status: Active Protocol: Document 11/12/19 16:45 DCW (Rec: 11/13/19 09:32 DCW [id number]) Lumbar Spine Range of Motion Lumbar Spine Active Degrees Testing Position Standing Flexion 0 Extension 2 ROM Limitations Bony Restriction Comments Patient's flexion ROM is entirely from hips, does no exhibit any vertebral movement when bending forward PT-OP-L Special Tests Start: 11/12/19 17:31 Freq: Status: Active Protocol: Document 11/12/19 16:45 DCW (Rec: 11/13/19 09:32 DCW [id number]) Special Tests Lumbar Spine Special Tests Double Knee to Chest Test Results Causes bilateral low back pain Slump Test Results Negative Vertical Spine Loading Test Results Negative Straight Leg Raise Test Results Positive: Ipsilateral pain bilaterally Manual Traction Test Results Negative Hip Special Tests MADDIE Test Results Minimal hip mobility PT-OP-M Strength Start: 11/12/19 17:31 Freq: Status: Active Protocol: Document 11/12/19 16:45 DCW (Rec: 11/13/19 09:32 DCW [id number]) Trunk Strength Trunk Manual Muscle Testing Core Stabilization Excellent core contraction, able to hold vs leg movement, begins to fatigue. 4/5 Hip Strength Hip Manual Muscle Testing Right Flexion (L2) 4+ Good+ Abduction 5 Normal Adduction 5 Normal External Rotation 4+ Good+ Internal Rotation 5 Normal Left Flexion (L2) 4+ Good+ Abduction 5 Normal Adduction 5 Normal External Rotation 4+ Good+ Internal Rotation 5 Normal Knee Strength Knee Manual Muscle Testing Right Flexion (S2) 5 Normal Extension (L3) 5 Normal Left Flexion (S2) 5 Normal Extension (L3) 5 Normal Ankle/Foot Strength Ankle and Foot Manual Muscle Testing Right Dorsiflexion (L4) 5 Normal Plantarflexion (S1) 5 Normal Left Dorsiflexion (L4) 5 Normal Plantarflexion (S1) 5 Normal PT-OP-Q Treatments Start: 11/12/19 17:31 Freq: Status: Active Protocol: Document 01/21/20 16:00 DCW (Rec: 01/21/20 16:50 DCW [id number]) Cardio Equipment Recumbent Stepper (Sci-Fit) Duration (Minutes) 6 Resistance 2 Seat Position 9 Other tolerated well, no pain, noted limited hip ROM Therapeutic Exercises Sitting Exercises QL stretch Sitting Exercise Name leaning arm on same leg side bend Side bilateral Reps/Minutes 30 sec x2 Comments cued not round back Manual Therapy Treatment Soft Tissue Mobilization ES w/ M HP Body Location L>R pirformis, paraspinal, QL Mobilization Type Cross-Friction,Myofascial Release,Trigger Point Release Intensity/Depth Superficial Body Position Prone Comments PROM hip IR/ ER 2 Body Location B Psoas Mobilization Type Myofascial Release,Sustained Pressure Manual Traction LS traction w / strap Details decompress hip/LS/ SI Body Position Supine Reps/Duration 30 sec x3 Comments Long leg pull Orthotic/Prosthetic Management and Training Treatment Details of Training SI belt fitting and instruction PT-OP-R Modalities Start: 11/12/19 17:31 Freq: Status: Active Protocol: Document 01/01/20 09:50 DCW (Rec: 01/01/20 10:30 DCW [id number]) Hot Pack/Cold Pack Treatment Hot Pack Location low back Patient Position Hooklying Treatment Duration (minutes) 10 Patient Tolerance Good Comments legs in 90/90 degree position PT-OP-T Assessment and Plan Start: 11/12/19 17:31 Freq: Status: Active Protocol: Document 01/21/20 16:00 DCW (Rec: 01/21/20 16:50 DCW [id number]) Physical Therapy Assessment Goals Three Impairment Pt presents with hypertonia along lumbar paraspinals and piriformis Outreach And Education Social Worker Goal (LTG) Pt to display mild tone in paraspinals and piriformis LTG Duration 02/07/20 Two Impairment Pt exhibits negligible lumbar spine mobility Short Term Goal (STG) Pt to increase lumbar flexion ROM to 10? STG Duration 12/24/19 Outreach And Education Social Worker Goal (LTG) Pt to demonstrate enough improved ROM to put lotion on her right lateral ankle LTG Duration 02/07/20 One Impairment Pt does not have an appropriate home exercise program Short Term Goal (STG) Pt to be independent and compliant with an appropriate HEP STG Duration 12/13/19 Assessment Summary Assessment Pt felt improved stability when donning SI belt. Pt excited to wear at home to help with back pain. Overall, pt should benefit from continued work to improve hip strength and improve lumbar mobility. Physical Therapy Plan Frequency and Duration Frequency of Treatment 2x/Week Duration of Treatment 12 weeks Plan of Care Start Date 11/12/19 Plan of Care End Date 02/03/20 Therapeutic Interventions Therapeutic Interventions Home Exercise Program,Joint Mobilizations,Manual Therapy, Patient/Caregiver Education, Self-Care/Home Management,Soft Tissue Mobilization, Therapeutic Exercises Modalities Cold Pack/Ice Massage,Hot Packs,Ultrasound Next Visit Focus/Plan Next Note Type Treatment Note Next Visit Plan Assess pt's adjustment to wearing SI belt. Progress lumbar flexion and flexbility of her low back and hips and strengthening to allow for donning shoes/socks/ shave legs.
--- NOTE | 2020-01-23 11:15 | PT.OTN ---
Current Diagnoses Stiffness of unspecified joint, not elsewhere classified (01/23/20) Stiffness of unspecified hip, not elsewhere classified (01/23/20) Low back pain (01/23/20) Physical Therapy Treatment Note PT-OP-A Visit Information Start: 11/12/19 17:31 Freq: Status: Active Protocol: Document 01/23/20 10:34 SP (Rec: 01/23/20 11:30 SP [id number]) Out-Patient Physical Therapy Visit Information Visit Information Visit Type Treatment Note Visit Start Time 10:34 Visit Stop Time 11:15 Total Visit Minutes 41 Visit Number 20 Number of SAFETY SCIENTIST Visits 1 PT-OP-B Current Condition Start: 11/12/19 17:31 Freq: Status: Active Protocol: Document 11/12/19 16:45 DCW (Rec: 11/12/19 17:55 DCW [id number]) Current Condition History of Current Condition Onset Date 2006, worsening over last month Current Complaints Low back pain, severe stiffness in lumbar spine and hips History of Current Condition Pt is a 74 year old female presenting with a history of low back and hip pain. Pt notes that she fell down stairs in 2006, fracturing her pelvis in three places. Pt has had some progressing stiffness in the years since then, but over the last month, has become much worse. 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 Treatment Goals Patient/Caregiver Goals I'm very much troubled from the stiffness in my back. PT-OP-C Subjective Start: 11/12/19 17:31 Freq: Status: Active Protocol: Document 01/23/20 10:34 SP (Rec: 01/23/20 11:30 SP [id number]) OP-PT Subjective Patient Comments Patient Comments Pt reported with pelivic belt donned in am and off when goes to bed, able to receiprocal gait on stairs and no pain, ok sitting on chair better but still standing is the best position, with the belt on her activity has improved tremendously. Able to bend over to get things dropp on floor noted alot more lately. Dr Toussaint referred to audio visual specialist and can't get in for 2 months, Dec. Pt reported able to roll over at night with no to considerably less LB pain and noticing doesn't need to use CBD oil as much. Pt reported has an appt for MRI of head to assess metalic ringing sound in ears, dizziness. PT-OP-F Manual Assessment Start: 11/12/19 17:31 Freq: Status: Active Protocol: Document 11/12/19 16:45 DCW (Rec: 11/12/19 17:55 DCW [id number]) Manual Assessments Soft Tissue Assessment Soft Tissue Mobility Assessment Moderate tone throughout bilateral paraspinals, piriformis, no real complaints of tenderness to palpation Joint Mobility Assessment Joint Mobility Assessment Severe hypomobility of lumbar spine upon palpation PT-OP-K Range of Motion Start: 11/12/19 17:31 Freq: Status: Active Protocol: Document 11/12/19 16:45 DCW (Rec: 11/13/19 09:32 DCW [id number]) Lumbar Spine Range of Motion Lumbar Spine Active Degrees Testing Position Standing Flexion 0 Extension 2 ROM Limitations Bony Restriction Comments Patient's flexion ROM is entirely from hips, does no exhibit any vertebral movement when bending forward PT-OP-L Special Tests Start: 11/12/19 17:31 Freq: Status: Active Protocol: Document 11/12/19 16:45 DCW (Rec: 11/13/19 09:32 DCW [id number]) Special Tests Lumbar Spine Special Tests Double Knee to Chest Test Results Causes bilateral low back pain Slump Test Results Negative Vertical Spine Loading Test Results Negative Straight Leg Raise Test Results Positive: Ipsilateral pain bilaterally Manual Traction Test Results Negative Hip Special Tests MADDIE Test Results Minimal hip mobility PT-OP-M Strength Start: 11/12/19 17:31 Freq: Status: Active Protocol: Document 11/12/19 16:45 DCW (Rec: 11/13/19 09:32 DCW [id number]) Trunk Strength Trunk Manual Muscle Testing Core Stabilization Excellent core contraction, able to hold vs leg movement, begins to fatigue. 4/5 Hip Strength Hip Manual Muscle Testing Right Flexion (L2) 4+ Good+ Abduction 5 Normal Adduction 5 Normal External Rotation 4+ Good+ Internal Rotation 5 Normal Left Flexion (L2) 4+ Good+ Abduction 5 Normal Adduction 5 Normal External Rotation 4+ Good+ Internal Rotation 5 Normal Knee Strength Knee Manual Muscle Testing Right Flexion (S2) 5 Normal Extension (L3) 5 Normal Left Flexion (S2) 5 Normal Extension (L3) 5 Normal Ankle/Foot Strength Ankle and Foot Manual Muscle Testing Right Dorsiflexion (L4) 5 Normal Plantarflexion (S1) 5 Normal Left Dorsiflexion (L4) 5 Normal Plantarflexion (S1) 5 Normal PT-OP-Q Treatments Start: 11/12/19 17:31 Freq: Status: Active Protocol: Document 01/23/20 10:34 SP (Rec: 01/23/20 11:30 SP [id number]) Gym Equipment Therapeutic Ball TS rotation against resistance Exercise Details resisted rotation Tb #2 (cross arms chest) Ball Size/Color 65 cm Body Position Sitting Reps/Duration 2x10 B Comments cued upright posture Therapeutic Exercises Supine Exercises core heel slide Side bilateral Reps/Minutes x10 Comments cued PPT, core facilitation, slow pacing control eccentric LTR Supine Exercise Name review, removed pelvic belt due to discomfort posterior Side bilateral Reps/Minutes 2 sec hold x5 Comments cuing PPT awareness decrease LB arch recruitment core march Supine Exercise Name core march Reps/Minutes 5 reps each x2-3 sets Comments cued PPT, core facilitation, slow pacing control eccentric Standing Exercises shld ext/ pull down Resistance TB #2 Reps/Minutes 2x10 each Comments cued scap stab and WBOS safety bal, slow pacing core facil control Therapeutic Activity Therapeutic Activity don doff pelvic belt supine Name review pelvic belt supine for comfort LTR benefits Comments able complete, challenging but readjust in standing. PT-OP-R Modalities Start: 11/12/19 17:31 Freq: Status: Active Protocol: Document 01/01/20 09:50 DCW (Rec: 01/01/20 10:30 DCW [id number]) Hot Pack/Cold Pack Treatment Hot Pack Location low back Patient Position Hooklying Treatment Duration (minutes) 10 Patient Tolerance Good Comments legs in 90/90 degree position PT-OP-T Assessment and Plan Start: 11/12/19 17:31 Freq: Status: Active Protocol: Document 01/23/20 10:34 SP (Rec: 01/23/20 11:30 SP [id number]) Physical Therapy Assessment Goals Three Impairment Pt presents with hypertonia along lumbar paraspinals and piriformis Fci Goal (LTG) Pt to display mild tone in paraspinals and piriformis LTG Duration 02/07/20 Two Impairment Pt exhibits negligible lumbar spine mobility Short Term Goal (STG) Pt to increase lumbar flexion ROM to 10? STG Duration 12/24/19 Fci Goal (LTG) Pt to demonstrate enough improved ROM to put lotion on her right lateral ankle LTG Duration 02/07/20 One Impairment Pt does not have an appropriate home exercise program Short Term Goal (STG) Pt to be independent and compliant with an appropriate HEP STG Duration 12/13/19 Assessment Summary Assessment Pt responding very well to compression support of pelvic belt during day hours activity and LB no pain last night rolling over when was off. Today was able tolerate with no pain core strengthening supine/ standing with belt to allow progression strengthening. Occasional cue for PPT and scap stabilization during standing TB ex. Educated removal/don pelvic brace supine for comfort benefits during TLR. Physical Therapy Plan Frequency and Duration Frequency of Treatment 2x/Week Duration of Treatment 12 weeks Plan of Care Start Date 11/12/19 Plan of Care End Date 02/03/20 Therapeutic Interventions Therapeutic Interventions Home Exercise Program,Joint Mobilizations,Manual Therapy, Patient/Caregiver Education, Self-Care/Home Management,Soft Tissue Mobilization, Therapeutic Exercises Modalities Cold Pack/Ice Massage,Hot Packs,Ultrasound Next Visit Focus/Plan Next Note Type Treatment Note Next Visit Plan Assess response to core strengthening with SI belt last tx. Progress lumbar flexion and flexbility of her low back and hips and strengthening to allow for donning shoes/socks/ shave legs.
--- NOTE | 2020-01-27 11:00 | PT.OTN ---
Current Diagnoses Stiffness of unspecified joint, not elsewhere classified (01/27/20) Stiffness of unspecified hip, not elsewhere classified (01/27/20) Low back pain (01/27/20) Physical Therapy Treatment Note PT-OP-A Visit Information Start: 11/12/19 17:31 Freq: Status: Active Protocol: Document 01/27/20 13:36 MA (Rec: 01/27/20 13:48 MA [id number]) Out-Patient Physical Therapy Visit Information Visit Information Visit Type Treatment Note Visit Start Time 10:15 Visit Stop Time 10:58 Total Visit Minutes 43 Visit Number 21 Number of ADULT SPECIALIST Visits 2 PT-OP-B Current Condition Start: 11/12/19 17:31 Freq: Status: Active Protocol: Document 11/12/19 16:45 DCW (Rec: 11/12/19 17:55 DCW [id number]) Current Condition History of Current Condition Onset Date 2006, worsening over last month Current Complaints Low back pain, severe stiffness in lumbar spine and hips History of Current Condition Pt is a 74 year old female presenting with a history of low back and hip pain. Pt notes that she fell down stairs in 2006, fracturing her pelvis in three places. Pt has had some progressing stiffness in the years since then, but over the last month, has become much worse. 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 Treatment Goals Patient/Caregiver Goals I'm very much troubled from the stiffness in my back. PT-OP-C Subjective Start: 11/12/19 17:31 Freq: Status: Active Protocol: Document 01/27/20 13:36 MA (Rec: 01/27/20 13:48 MA [id number]) OP-PT Subjective Patient Comments Patient Comments Pt says the pelvic belt has saved her life and makes a big difference in decreasing LBP. She wears it all day except when showering and sleeping. Pt has had no LBP during bed mobility since last session. PT-OP-F Manual Assessment Start: 11/12/19 17:31 Freq: Status: Active Protocol: Document 11/12/19 16:45 DCW (Rec: 11/12/19 17:55 DCW [id number]) Manual Assessments Soft Tissue Assessment Soft Tissue Mobility Assessment Moderate tone throughout bilateral paraspinals, piriformis, no real complaints of tenderness to palpation Joint Mobility Assessment Joint Mobility Assessment Severe hypomobility of lumbar spine upon palpation PT-OP-K Range of Motion Start: 11/12/19 17:31 Freq: Status: Active Protocol: Document 11/12/19 16:45 DCW (Rec: 11/13/19 09:32 DCW [id number]) Lumbar Spine Range of Motion Lumbar Spine Active Degrees Testing Position Standing Flexion 0 Extension 2 ROM Limitations Bony Restriction Comments Patient's flexion ROM is entirely from hips, does no exhibit any vertebral movement when bending forward PT-OP-L Special Tests Start: 11/12/19 17:31 Freq: Status: Active Protocol: Document 11/12/19 16:45 DCW (Rec: 11/13/19 09:32 DCW [id number]) Special Tests Lumbar Spine Special Tests Double Knee to Chest Test Results Causes bilateral low back pain Slump Test Results Negative Vertical Spine Loading Test Results Negative Straight Leg Raise Test Results Positive: Ipsilateral pain bilaterally Manual Traction Test Results Negative Hip Special Tests MADDIE Test Results Minimal hip mobility PT-OP-M Strength Start: 11/12/19 17:31 Freq: Status: Active Protocol: Document 11/12/19 16:45 DCW (Rec: 11/13/19 09:32 DCW [id number]) Trunk Strength Trunk Manual Muscle Testing Core Stabilization Excellent core contraction, able to hold vs leg movement, begins to fatigue. 4/5 Hip Strength Hip Manual Muscle Testing Right Flexion (L2) 4+ Good+ Abduction 5 Normal Adduction 5 Normal External Rotation 4+ Good+ Internal Rotation 5 Normal Left Flexion (L2) 4+ Good+ Abduction 5 Normal Adduction 5 Normal External Rotation 4+ Good+ Internal Rotation 5 Normal Knee Strength Knee Manual Muscle Testing Right Flexion (S2) 5 Normal Extension (L3) 5 Normal Left Flexion (S2) 5 Normal Extension (L3) 5 Normal Ankle/Foot Strength Ankle and Foot Manual Muscle Testing Right Dorsiflexion (L4) 5 Normal Plantarflexion (S1) 5 Normal Left Dorsiflexion (L4) 5 Normal Plantarflexion (S1) 5 Normal PT-OP-Q Treatments Start: 11/12/19 17:31 Freq: Status: Active Protocol: Document 01/27/20 13:36 MA (Rec: 01/27/20 13:48 MA [id number]) Therapeutic Exercises Supine Exercises Piriformis stretch Side bilateral Reps/Minutes 2x30 seconds adrianna core heel slide Side bilateral Reps/Minutes x10 Comments cued PPT, core facilitation, slow pacing control eccentric bridge Reps/Minutes 2x10 Comments Pt prefers to roll through spine LTR Supine Exercise Name review, removed pelvic belt due to discomfort posterior Side bilateral Reps/Minutes 2 sec hold x5 Comments cuing PPT awareness decrease LB arch recruitment core march Supine Exercise Name core march Reps/Minutes 5 reps each x2-3 sets Comments cued PPT, core facilitation, slow pacing control eccentric Sidelying Exercises Open Book Side bilateral Reps/Minutes 1x10 Comments Cues for keeping hips neutral while rotating Standing Exercises Row with thoracic rotation Side bilateral Equipment Used #2TB Reps/Minutes 2x10 Comments single arm row with thoracic rotation PT-OP-R Modalities Start: 11/12/19 17:31 Freq: Status: Active Protocol: Document 01/01/20 09:50 DCW (Rec: 01/01/20 10:30 DCW [id number]) Hot Pack/Cold Pack Treatment Hot Pack Location low back Patient Position Hooklying Treatment Duration (minutes) 10 Patient Tolerance Good Comments legs in 90/90 degree position PT-OP-T Assessment and Plan Start: 11/12/19 17:31 Freq: Status: Active Protocol: Document 01/27/20 13:36 MA (Rec: 01/27/20 13:48 MA [id number]) Physical Therapy Assessment Goals Three Impairment Pt presents with hypertonia along lumbar paraspinals and piriformis Correction Goal (LTG) Pt to display mild tone in paraspinals and piriformis LTG Duration 02/07/20 Two Impairment Pt exhibits negligible lumbar spine mobility Short Term Goal (STG) Pt to increase lumbar flexion ROM to 10? STG Duration 12/24/19 Correction Goal (LTG) Pt to demonstrate enough improved ROM to put lotion on her right lateral ankle LTG Duration 02/07/20 One Impairment Pt does not have an appropriate home exercise program Short Term Goal (STG) Pt to be independent and compliant with an appropriate HEP STG Duration 12/13/19 Assessment Summary Assessment Pt was able to remove lumbar support belt with no pain throughout session. ADULT SPECIALIST discussed pt trying to do her exercises without the belt, donning the belt post exercises as needed for pain. Added open book and row with thoracic rotation to HEP. Physical Therapy Plan Frequency and Duration Frequency of Treatment 2x/Week Duration of Treatment 12 weeks Plan of Care Start Date 11/12/19 Plan of Care End Date 02/03/20 Next Visit Focus/Plan Next Note Type Treatment Note Next Visit Plan See how exercises without pelvic belt went and review new HEP exercises added last session. Progress lumbar flexion and flexbility of her low back and hips and strengthening to allow for donning shoes/socks/ shave legs.
--- NOTE | 2020-01-29 10:30 | PT.OTN ---
Current Diagnoses Stiffness of unspecified joint, not elsewhere classified (01/29/20) Stiffness of unspecified hip, not elsewhere classified (01/29/20) Low back pain (01/29/20) Physical Therapy Treatment Note PT-OP-A Visit Information Start: 11/12/19 17:31 Freq: Status: Active Protocol: Document 01/29/20 10:30 DLM (Rec: 01/30/20 19:43 DLM [id number]) Out-Patient Physical Therapy Visit Information Visit Information Visit Type Treatment Note Visit Start Time 10:30 Visit Stop Time 11:30 Total Visit Minutes 60 Visit Number 22 Number of LOBSTER FISHERMAN Visits 0 Evaluation Information Evaluation Date 11/12/19 PT-OP-B Current Condition Start: 11/12/19 17:31 Freq: Status: Active Protocol: Document 11/12/19 16:45 DCW (Rec: 11/12/19 17:55 DCW [id number]) Current Condition History of Current Condition Onset Date 2006, worsening over last month Current Complaints Low back pain, severe stiffness in lumbar spine and hips History of Current Condition Pt is a 74 year old female presenting with a history of low back and hip pain. Pt notes that she fell down stairs in 2006, fracturing her pelvis in three places. Pt has had some progressing stiffness in the years since then, but over the last month, has become much worse. 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 Treatment Goals Patient/Caregiver Goals I'm very much troubled from the stiffness in my back. PT-OP-C Subjective Start: 11/12/19 17:31 Freq: Status: Active Protocol: Document 01/29/20 10:30 DLM (Rec: 01/30/20 19:43 DLM [id number]) OP-PT Subjective Patient Comments Patient Comments She has new left heel soreness when walking. She continues to wear her SI belt. PT-OP-F Manual Assessment Start: 11/12/19 17:31 Freq: Status: Active Protocol: Document 11/12/19 16:45 DCW (Rec: 11/12/19 17:55 DCW [id number]) Manual Assessments Soft Tissue Assessment Soft Tissue Mobility Assessment Moderate tone throughout bilateral paraspinals, piriformis, no real complaints of tenderness to palpation Joint Mobility Assessment Joint Mobility Assessment Severe hypomobility of lumbar spine upon palpation PT-OP-K Range of Motion Start: 11/12/19 17:31 Freq: Status: Active Protocol: Document 11/12/19 16:45 DCW (Rec: 11/13/19 09:32 DCW [id number]) Lumbar Spine Range of Motion Lumbar Spine Active Degrees Testing Position Standing Flexion 0 Extension 2 ROM Limitations Bony Restriction Comments Patient's flexion ROM is entirely from hips, does no exhibit any vertebral movement when bending forward PT-OP-L Special Tests Start: 11/12/19 17:31 Freq: Status: Active Protocol: Document 11/12/19 16:45 DCW (Rec: 11/13/19 09:32 DCW [id number]) Special Tests Lumbar Spine Special Tests Double Knee to Chest Test Results Causes bilateral low back pain Slump Test Results Negative Vertical Spine Loading Test Results Negative Straight Leg Raise Test Results Positive: Ipsilateral pain bilaterally Manual Traction Test Results Negative Hip Special Tests MADDIE Test Results Minimal hip mobility PT-OP-M Strength Start: 11/12/19 17:31 Freq: Status: Active Protocol: Document 11/12/19 16:45 DCW (Rec: 11/13/19 09:32 DCW [id number]) Trunk Strength Trunk Manual Muscle Testing Core Stabilization Excellent core contraction, able to hold vs leg movement, begins to fatigue. 4/5 Hip Strength Hip Manual Muscle Testing Right Flexion (L2) 4+ Good+ Abduction 5 Normal Adduction 5 Normal External Rotation 4+ Good+ Internal Rotation 5 Normal Left Flexion (L2) 4+ Good+ Abduction 5 Normal Adduction 5 Normal External Rotation 4+ Good+ Internal Rotation 5 Normal Knee Strength Knee Manual Muscle Testing Right Flexion (S2) 5 Normal Extension (L3) 5 Normal Left Flexion (S2) 5 Normal Extension (L3) 5 Normal Ankle/Foot Strength Ankle and Foot Manual Muscle Testing Right Dorsiflexion (L4) 5 Normal Plantarflexion (S1) 5 Normal Left Dorsiflexion (L4) 5 Normal Plantarflexion (S1) 5 Normal PT-OP-Q Treatments Start: 11/12/19 17:31 Freq: Status: Active Protocol: Document 01/29/20 10:30 DLM (Rec: 01/30/20 19:43 DLM [id number]) Therapeutic Exercises Supine Exercises Bent knee drop outs Supine Exercise Name Bent knee drop outs Side bilateral Resistance one LE at a time Reps/Minutes 10 reps each Comments with core stabalization Piriformis stretch Supine Exercise Name piriformis stretch Side bilateral Reps/Minutes 2x30 seconds bridge Supine Exercise Name Bridging Reps/Minutes 2x10 Comments Pt prefers to roll through spine LTR Supine Exercise Name LTR Side bilateral Reps/Minutes 5 reps each side SKTC stretch Supine Exercise Name SKTC stretch Side bilateral Resistance passive Reps/Minutes 3 reps each core march Supine Exercise Name core march Reps/Minutes 5 reps each x2-3 sets Comments cued PPT, core facilitation, slow pacing control eccentric Sidelying Exercises 2 Sidelying Exercise Name Clamshells Side bilateral Reps/Minutes 10 reps each 1 Sidelying Exercise Name Hip Abduction Side bilateral Reps/Minutes 10 reps each Manual Therapy Treatment Soft Tissue Mobilization Manual stretch Body Location left gastroc/soleus Body Position Supine Comments passive stretch to manage tightness, achilles tight and sore, plantar fascial tightness also Self-Care/Home Management Treatment Education Patient Education Home Exercise Program PT-OP-R Modalities Start: 11/12/19 17:31 Freq: Status: Active Protocol: Document 01/01/20 09:50 DCW (Rec: 01/01/20 10:30 DCW [id number]) Hot Pack/Cold Pack Treatment Hot Pack Location low back Patient Position Hooklying Treatment Duration (minutes) 10 Patient Tolerance Good Comments legs in 90/90 degree position PT-OP-T Assessment and Plan Start: 11/12/19 17:31 Freq: Status: Active Protocol: Document 01/29/20 10:30 DLM (Rec: 01/30/20 19:43 DLM [id number]) Physical Therapy Assessment Goals Three Impairment Pt presents with hypertonia along lumbar paraspinals and piriformis Clinical Systems Analyst Goal (LTG) Pt to display mild tone in paraspinals and piriformis LTG Duration 02/07/20 Two Impairment Pt exhibits negligible lumbar spine mobility Short Term Goal (STG) Pt to increase lumbar flexion ROM to 10? STG Duration 12/24/19 Clinical Systems Analyst Goal (LTG) Pt to demonstrate enough improved ROM to put lotion on her right lateral ankle LTG Duration 02/07/20 One Impairment Pt does not have an appropriate home exercise program Short Term Goal (STG) Pt to be independent and compliant with an appropriate HEP STG Duration 12/13/19 Progress Towards Goals Progress Towards Goals Progressing Toward Goals Assessment Summary Assessment All exercises performed without SI belt with good tolerance. New left heel soreness with gastroc and plantarfascial tightness noted . Physical Therapy Plan Frequency and Duration Frequency of Treatment 2x/Week Duration of Treatment 12 weeks Plan of Care Start Date 11/12/19 Plan of Care End Date 02/03/20 Therapeutic Interventions Therapeutic Interventions Home Exercise Program,Joint Mobilizations,Manual Therapy, Patient/Caregiver Education, Self-Care/Home Management,Soft Tissue Mobilization, Therapeutic Exercises Modalities Cold Pack/Ice Massage,Hot Packs,Ultrasound Next Visit Focus/Plan Next Note Type Progress Note Next Visit Plan Progress lumbar flexion and flexbility of her low back and hips and strengthening to allow for donning shoes/socks/ wash feet.
--- NOTE | 2020-02-05 11:07 | PT.OTN ---
Current Diagnoses Stiffness of unspecified joint, not elsewhere classified (02/05/20) Stiffness of unspecified hip, not elsewhere classified (02/05/20) Low back pain (02/05/20) Physical Therapy Treatment Note PT-OP-A Visit Information Start: 11/12/19 17:31 Freq: Status: Active Protocol: Document 02/05/20 10:30 DCW (Rec: 02/05/20 11:07 DCW [id number]) Out-Patient Physical Therapy Visit Information Visit Information Visit Type Discharge Summary Visit Start Time 10:30 Visit Stop Time 10:55 Total Visit Minutes 25 Visit Number 23 Number of SAP PI DEVELOPER Visits 0 Evaluation Information Evaluation Date 11/12/19 PT-OP-B Current Condition Start: 11/12/19 17:31 Freq: Status: Active Protocol: Document 11/12/19 16:45 DCW (Rec: 11/12/19 17:55 DCW [id number]) Current Condition History of Current Condition Onset Date 2006, worsening over last month Current Complaints Low back pain, severe stiffness in lumbar spine and hips History of Current Condition Pt is a 74 year old female presenting with a history of low back and hip pain. Pt notes that she fell down stairs in 2006, fracturing her pelvis in three places. Pt has had some progressing stiffness in the years since then, but over the last month, has become much worse. 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 Treatment Goals Patient/Caregiver Goals I'm very much troubled from the stiffness in my back. PT-OP-C Subjective Start: 11/12/19 17:31 Freq: Status: Active Protocol: Document 02/05/20 10:30 DCW (Rec: 02/05/20 11:07 DCW [id number]) OP-PT Subjective Patient Comments Patient Comments Pt feeling great, not having any pain and feels like she is likely approaching discharge. Loves her SI belt, she feels it is helping dramatically. PT-OP-F Manual Assessment Start: 11/12/19 17:31 Freq: Status: Active Protocol: Document 02/05/20 10:30 DCW (Rec: 02/05/20 10:50 DCW [id number]) Manual Assessments Soft Tissue Assessment Soft Tissue Mobility Assessment Mild tone throughout bilateral paraspinals, piriformis, no real complaints of tenderness to palpation Joint Mobility Assessment Joint Mobility Assessment Moderate hypomobility of lumbar spine upon palpation PT-OP-K Range of Motion Start: 11/12/19 17:31 Freq: Status: Active Protocol: Document 02/05/20 10:30 DCW (Rec: 02/05/20 10:50 DCW [id number]) Lumbar Spine Range of Motion Lumbar Spine Active Degrees Testing Position Standing Flexion 22 Extension 13 PT-OP-L Special Tests Start: 11/12/19 17:31 Freq: Status: Active Protocol: Document 02/05/20 10:30 DCW (Rec: 02/05/20 10:50 DCW [id number]) Special Tests Lumbar Spine Special Tests Double Knee to Chest Test Results Negative Slump Test Results Negative Vertical Spine Loading Test Results Negative Straight Leg Raise Test Results Negative Hip Special Tests MADDIE Test Results Minimal hip mobility PT-OP-M Strength Start: 11/12/19 17:31 Freq: Status: Active Protocol: Document 02/05/20 10:30 DCW (Rec: 02/05/20 10:50 DCW [id number]) Hip Strength Hip Manual Muscle Testing Right Flexion (L2) 4+ Good+ Abduction 5 Normal Adduction 5 Normal External Rotation 5 Normal Internal Rotation 5 Normal Left Flexion (L2) 4+ Good+ Abduction 5 Normal Adduction 5 Normal External Rotation 5 Normal Internal Rotation 5 Normal Knee Strength Knee Manual Muscle Testing Right Flexion (S2) 5 Normal Extension (L3) 5 Normal Left Flexion (S2) 5 Normal Extension (L3) 5 Normal Ankle/Foot Strength Ankle and Foot Manual Muscle Testing Right Dorsiflexion (L4) 5 Normal Plantarflexion (S1) 5 Normal Left Dorsiflexion (L4) 5 Normal Plantarflexion (S1) 5 Normal PT-OP-Q Treatments Start: 11/12/19 17:31 Freq: Status: Active Protocol: Document 02/05/20 10:30 DCW (Rec: 02/05/20 11:07 DCW [id number]) Manual Therapy Treatment Other Other Manual Treatments Testing PT-OP-R Modalities Start: 11/12/19 17:31 Freq: Status: Active Protocol: Document 01/01/20 09:50 DCW (Rec: 01/01/20 10:30 DCW [id number]) Hot Pack/Cold Pack Treatment Hot Pack Location low back Patient Position Hooklying Treatment Duration (minutes) 10 Patient Tolerance Good Comments legs in 90/90 degree position PT-OP-T Assessment and Plan Start: 11/12/19 17:31 Freq: Status: Active Protocol: Document 02/05/20 10:30 DCW (Rec: 02/05/20 11:07 DCW [id number]) Physical Therapy Assessment Goals Three Impairment Pt presents with hypertonia along lumbar paraspinals and piriformis Consumer Safety Officer Goal (LTG) Pt to display mild tone in paraspinals and piriformis LTG Duration Improving Two Impairment Pt exhibits negligible lumbar spine mobility Short Term Goal (STG) Pt to increase lumbar flexion ROM to 10? STG Duration Met Consumer Safety Officer Goal (LTG) Pt to demonstrate enough improved ROM to put lotion on her right lateral ankle LTG Duration Met One Impairment Pt does not have an appropriate home exercise program Short Term Goal (STG) Pt to be independent and compliant with an appropriate HEP STG Duration Met Progress Towards Goals Progress Towards Goals Progressing Toward Goals Assessment Summary Assessment Pt showing great improvement in all areas, met ROM goals. Pt continues to be fairly tight in hips and paraspinals, however feels confident in her ability to continue her HEP independently, and is comfortable with discharge at this time. Physical Therapy Plan Frequency and Duration Frequency of Treatment 1x/Week Duration of Treatment 1 day Plan of Care Start Date 02/05/20 Plan of Care End Date 02/06/20 Therapeutic Interventions Therapeutic Interventions Home Exercise Program,Joint Mobilizations,Manual Therapy, Patient/Caregiver Education, Self-Care/Home Management,Soft Tissue Mobilization, Therapeutic Exercises Modalities Cold Pack/Ice Massage,Hot Packs,Ultrasound Discharge Physical Therapy Discharge Reasons Goals Met Next Visit Focus/Plan Next Note Type Discharge Summary
--- NOTE | 2020-02-05 11:08 | PT.OPPOC ---
Physical, Occupational & Speech Therapy At [facility] Current Diagnoses Stiffness of unspecified joint, not elsewhere classified (02/05/20) Stiffness of unspecified hip, not elsewhere classified (02/05/20) Low back pain (02/05/20) Visit Care Team Role Provider Type Donna Toussaint MD Attending Provider Physician Primary Care Provider Referring Provider Specialty: [facility] Address: [address] [place] [address], [facility] [place], [address] Email: [email or web address] Plan Of Care PT-OP-T Assessment and Plan Start: 11/12/19 17:31 Freq: Status: Active Protocol: Document 02/05/20 10:30 DCW (Rec: 02/05/20 11:07 DCW [id number]) Physical Therapy Assessment Goals Three Impairment Pt presents with hypertonia along lumbar paraspinals and piriformis Physicist Astrophysics Goal (LTG) Pt to display mild tone in paraspinals and piriformis LTG Duration Improving Two Impairment Pt exhibits negligible lumbar spine mobility Short Term Goal (STG) Pt to increase lumbar flexion ROM to 10? STG Duration Met Physicist Astrophysics Goal (LTG) Pt to demonstrate enough improved ROM to put lotion on her right lateral ankle LTG Duration Met One Impairment Pt does not have an appropriate home exercise program Short Term Goal (STG) Pt to be independent and compliant with an appropriate HEP STG Duration Met Progress Towards Goals Progress Towards Goals Progressing Toward Goals Assessment Summary Assessment Pt showing great improvement in all areas, met ROM goals. Pt continues to be fairly tight in hips and paraspinals, however feels confident in her ability to continue her HEP independently, and is comfortable with discharge at this time. Physical Therapy Plan Frequency and Duration Frequency of Treatment 1x/Week Duration of Treatment 1 day Plan of Care Start Date 02/05/20 Plan of Care End Date 02/06/20 Therapeutic Interventions Therapeutic Interventions Home Exercise Program,Joint Mobilizations,Manual Therapy, Patient/Caregiver Education, Self-Care/Home Management,Soft Tissue Mobilization, Therapeutic Exercises Modalities Cold Pack/Ice Massage,Hot Packs,Ultrasound Discharge Physical Therapy Discharge Reasons Goals Met Next Visit Focus/Plan Next Note Type Discharge Summary Plan of Care Dates Plan of Care Start Date 02/05/20 Plan of Care End Date 02/06/20 Electronically Signed by: Marquis Munoz, PT 02/05/20 1108 Please Sign and Return: I have reviewed this Plan of Care and certify that the skilled therapy services above are required to meet the patient?s needs. Physician Signature Date Printed Name and Credentials Clinical Instructor Signature Printed Name and Credentials
--- NOTE | 2020-02-05 11:09 | PT.OPPOC ---
Physical, Occupational & Speech Therapy At [facility] Current Diagnoses Stiffness of unspecified joint, not elsewhere classified (02/05/20) Stiffness of unspecified hip, not elsewhere classified (02/05/20) Low back pain (02/05/20) Visit Care Team Role Provider Type Donna Tousasint MD Attending Provider Physician Primary Care Provider Referring Provider Specialty: [facility] Address: [address] [place] [address], [facility] [place], [address] Email: [email or web address] Plan Of Care PT-OP-T Assessment and Plan Start: 11/12/19 17:31 Freq: Status: Active Protocol: Document 02/05/20 10:30 DCW (Rec: 02/05/20 11:07 DCW [id number]) Physical Therapy Assessment Goals Three Impairment Pt presents with hypertonia along lumbar paraspinals and piriformis Beating Machine Operator Goal (LTG) Pt to display mild tone in paraspinals and piriformis LTG Duration Improving Two Impairment Pt exhibits negligible lumbar spine mobility Short Term Goal (STG) Pt to increase lumbar flexion ROM to 10? STG Duration Met Beating Machine Operator Goal (LTG) Pt to demonstrate enough improved ROM to put lotion on her right lateral ankle LTG Duration Met One Impairment Pt does not have an appropriate home exercise program Short Term Goal (STG) Pt to be independent and compliant with an appropriate HEP STG Duration Met Progress Towards Goals Progress Towards Goals Progressing Toward Goals Assessment Summary Assessment Pt showing great improvement in all areas, met ROM goals. Pt continues to be fairly tight in hips and paraspinals, however feels confident in her ability to continue her HEP independently, and is comfortable with discharge at this time. Physical Therapy Plan Frequency and Duration Frequency of Treatment 1x/Week Duration of Treatment 1 day Plan of Care Start Date 02/05/20 Plan of Care End Date 02/06/20 Therapeutic Interventions Therapeutic Interventions Home Exercise Program,Joint Mobilizations,Manual Therapy, Patient/Caregiver Education, Self-Care/Home Management,Soft Tissue Mobilization, Therapeutic Exercises Modalities Cold Pack/Ice Massage,Hot Packs,Ultrasound Discharge Physical Therapy Discharge Reasons Goals Met Next Visit Focus/Plan Next Note Type Discharge Summary Plan of Care Dates Plan of Care Start Date 02/05/20 Plan of Care End Date 02/06/20 Electronically Signed by: Marquis Munoz, PT 02/05/20 [id number] Please Sign and Return: I have reviewed this Plan of Care and certify that the skilled therapy services above are required to meet the patient?s needs. Physician Signature Date Printed Name and Credentials Clinical Instructor Signature Printed Name and Credentials
== END 2020-02-21 14:38 | disposition home or self-care (01) ==
LOC: PHYS 10:30
PROVIDERS: PCP Family Medicine; Referring Provider Family Medicine; Visit Provider Family Medicine
DX: M54.5 Low back pain (principal); M25.60 Stiffness of unspecified joint, not elsewhere classified; M25.659 Stiffness of unspecified hip, not elsewhere classified
CPT/HCPCS: 97010; 97014; 97110; 97140; 97162; 97760; G0283

== ENCOUNTER 2020-05-18 13:30 | Outpatient (RCR) | payer MEDICARE, OTHER, SELFPAY ==
--- NOTE | 2020-04-21 13:24 | ST.OPIE ---
Visit Care Team Role Provider Type Donna Toussaint MD Primary Care Provider Physician Specialty: Family Practice Address: [address] [place] [address], [id number] Email: [email or web address] Haroldo Wren MD Attending Provider Physician Referring Provider Specialty: Ear, Nose, Throat Address: [address] [place] [address], [id number] Email: [email or web address] Speech-Language Pathology Initial Evaluation BABY ATTENDANT Voice Resonance Evaluation Start: 04/21/20 11:20 Freq: Status: Active Protocol: Document 04/21/20 11:21 LNK (Rec: 04/21/20 13:23 LNK [id number]) Voice and Resonance Assessment Session Time Visit Start Time 11:30 Visit Stop Time 12:15 Total Visit Minutes 45 Visit Information Visit Number 1 Plan of Care Dates 04/21/20-07/20/20 Next Note Type Next Note Type Treatment Note Referral Referring Physician Dr. Wren Setting Setting Outpatient Care Patient History General Information Clementina Stein was seen for a voice evaluation with c/o a hoarse voice. She was seen by Dr. Wren, ENT,who observed her vocal folds to be bilaterally mobile without lesion. He could not visualize the anterior of the vocal folds. Dr. Wren recommended voice therapy. - Laryngeal Performance CAPE-V Breathiness mild Pitch WNL Normal Resonance? Yes Breath Support Breath Support At Rest Abdominal Breath Support Conversation Abdominal Speaks on Room Air Yes Voice Pitch Range Norms: Women (100-300 Hz) Men (70-250 Hz) Fundamental Frequency Norms: Women (Mean: 225 Hz; Range: 155-334 Hz) Men ( Mean: 128 Hz; Range: 85-196 Hz) Voice Pitch Mildly High Voice Loudness Mildly Soft/Quiet Voice Phonatory-based Quality Hoarse Therapeutic Techniques Other Tactics Glottal adduction exercises Increase H2o Discuss allergy medication with MD Findings Findings Mild Impairment Observations Clementina Stein presented with mild vocal hoarseness which she notes has been ongoing for approximately [address] Wren, her vocal folds were bilaterally mobile with no lesions. Clementina noted that she has a medical history of allergies and PND. She frequently clears her throat and will cough often. She uses Flonase in the mornings for her allergies. She reports that she currently drinks 3-4 glasses of water daily. Clementina also stated that in the she had maxillary surgery to remove a portion if her maxilla. Ever since that surgery, she reports that her PND and sinusitis have been a problem. Voice/Resonance Assessment Assessment Presbylaryngis as well as irritation from her allergies are suspected. Clementina's age would suggest presbylaryngis. Additionally, she has only treated her allergies with Flonase. Clementina states she is allergic to the air we breathe. Her allergies and resulting secretions/PND may irritate the vocal folds causing cough/ throat- clear. She drinks 3-4 glasses of water daily. Increased hydration could thin sectretions to decrease frequency of throat-clearing. 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 Vocie therapy is recommended. Prognosis Rehabilitation Potential Excellent - Recommendations Treatment Recommended Yes Treatment Frequency/Duration 1x/3-4 weeks Therapy Recommendations Vocal adduction exercises ( Demonstrated and practiced) Increased consumption of H2O Short Term Goals Clementina will perform vocal adduction exercises daily to increase medial vocal fold strength and closure. Clementina will report fewer episodes of throat clearing and coughing. Clementina will report improved vocal quality. Fans Clerk Goals Improve vocal quality and reduce cough throat clearing frequency, per pt report. Referrals Referrals ENT Patient/Caregiver Education Patient/Family Education Described results of evaluation,Patient Understanding
--- NOTE | 2020-04-21 13:25 | ST.OPPOC ---
Physical, Occupational & Speech Therapy At [facility] Visit Care Team Role Provider Type Donna Toussaint MD Primary Care Provider Physician Address: [address], [place], [address] Haroldo Wren MD Attending Provider Physician Referring Provider Address: [address] [place] [address], [id number] Speech Pathology Plan of Care General Information Clementina Stein was seen for a voice evaluation with c/o a hoarse voice. She was seen by Dr. Wren, ENT,who observed her vocal folds to be bilaterally mobile without lesion. He could not visualize the anterior of the vocal folds. Dr. Wren recommended voice therapy. Plan of Care Dates 04/21/20-07/20/20 Senior Living Goals Improve vocal quality and reduce cough throat clearing frequency, per pt report. Electronically Signed by: PADILLA Hillman 04/21/20 [id number] Please Sign and Return: I have reviewed this Plan of Care and certify that the skilled therapy services above are required to meet the patient?s needs. Physician Signature Date Printed Name and Credentials Clinical Instructor Signature Printed Name and Credentials
--- NOTE | 2020-05-18 16:44 | ST.OPDS ---
Visit Care Team Role Provider Type Donna Toussaint MD Primary Care Provider Physician Address: [address] [place] [address], [address] Haroldo Wren MD Attending Provider Physician Referring Provider Address: [address] [place] [address], [address] CATHETERIZATION LABORATORY TECHNICIAN Treatment Note CATHETERIZATION LABORATORY TECHNICIAN Treatment Note Start: 04/21/20 11:20 Freq: Status: Active Protocol: Document 05/18/20 16:31 LNK (Rec: 05/18/20 16:43 LNK [id number]) Speech Pathology Treatment Note Session Time Visit Start Time 13:30 Visit Stop Time 14:10 Total Visit Minutes 40 Visit Information Visit Number 2 Setting Treatment Setting Outpatient Care Visit Type Note Type Treatment Note Next Note Type Next Note Type Discharge Summary General Information General Information Nas Chen was seen for a voice evaluation with c/o a hoarse voice. She was seen by Dr. Wren, ENT,who observed her vocal folds to be bilaterally mobile without lesion. He could not visualize the anterior of the vocal folds. Dr. Wren recommended voice therapy. Subjective Identification Type Name Identification Reconciled With Intake Sheet Chief Complaint(s) Voice Rehab Expectation/Goals: Patient Goals Improve vocal quality; reduce frequency of throat-clearing Patient Knowledge/Awareness of CATHETERIZATION LABORATORY TECHNICIAN Role Excellent in Treatment Patient/Caregiver Compliance with Home Good Exercise Program Objective Short Term Goals Nas will perform vocal adduction exercises daily to increase medial vocal fold strength and closure. Nas will report fewer episodes of throat clearing and coughing. Nas will report improved vocal quality. [ End ] Manufacturing Weaver Goals Improve vocal quality and reduce cough throat clearing frequency, per pt report. Treatment Activities Nas reported that she has been practicing vocal adduction exercises and feels that her voice is stronger. She also reported that she has increased her water intake. She noted that she continues to clear her throat frequently . She stated that this was due to chronic sinusitis. We discussed different strategies to reduce throat-clearing: soft clear and swallowing when she feels a need to clear her throat. nas felt that she was able to manage her exercises and strategies on her own. She agreed to discharge from therapy. Assessment Patient Response to Treatment Good Rehab Potential Good Impairments Identified Vocal Quality Progress Towards Goals Good Progress Assessment of Overall Progress Improving Reviewed with Patient Goals,Progress Being Made,Home Exercise Program Plan Amount of Therapy Recommended No Further Therapy Frequency of Treatment No Further Therapy Therapy Recommendations Discharge from Speech Therapy Reason for Discharge Nas feels she can continue independently
== END 2020-08-14 10:11 | disposition home or self-care (01) ==
LOC: SP 13:30
PROVIDERS: PCP Family Medicine; Referring Provider Otolaryngology; Visit Provider Otolaryngology
DX: R49.0 Dysphonia (principal)
CPT/HCPCS: 92507; 92524

== ENCOUNTER → 2020-05-29 11:55 | Outpatient (CLI) | payer MEDICARE, OTHER, SELFPAY ==
[2020-05-29 14:08] LABS: BUN Creatinine Ratio 17.3 (6-22); Blood Urea Nitrogen 22 mg/dL (7-17); Calcium 8.8 mg/dL (8.4-10.2); Carbon Dioxide 30 mmol/L (22-32); Chloride 102 mmol/L (98-107); Estimated Glomerular Filt Rate 40.9 mL/min (>60); Glucose 85 mg/dL (80-110); HEMOLYSIS < 15 (0-50); Potassium 4.4 mmol/L (3.4-5.1); Sodium 138 mmol/L (137-145)
[2020-05-29 14:14] LABS: Appearance Urine UA CLEAR; Bilirubin Urine UA NEGATIVE (NEGATIVE); Color Urine UA YELLOW; Glucose Urine UA NEGATIVE (Negative); Ketones Urine UA NEGATIVE (NEGATIVE); Leukocyte Esterase Urine UA 1+ (NEGATIVE); Nitrite Urine UA NEGATIVE (Negative); Occult Blood Urine UA NEGATIVE (Negative); Protein Urine UA NEGATIVE (Negative); Specific Gravity Urine UA 1.015 (1.000-1.035); Urobilinogen Urine UA 0.2 E.U./dL (0.2)
[2020-05-29 14:53] LABS: Bacteria Urine Few (2-10); RBC Urine 0-1/HPF (0-5/HPF); Renal Epithelial Cells Urine 1-5/HPF (0-1/HPF); Squamous Epithelial Cell Urine 1-5 /HPF (0-5/HPF); Transitional Epi Cells Urine 5-10/HPF (0-5/HPF); WBC Urine 5-10/HPF (0-5/HPF)
[2020-05-29 14:54] LABS: Culture Indicated Urine Specimen Cultured
== END ==
PROVIDERS: PCP Family Medicine; Referring Provider Family Medicine; Visit Provider Family Medicine
DX: I10 Essential (primary) hypertension (principal); N18.9 Chronic kidney disease, unspecified
CPT/HCPCS: 36415; 80048; 81003; 81015; 87086

== ENCOUNTER → 2020-12-03 13:54 | Outpatient (CLI) | payer MEDICARE, OTHER, SELFPAY ==
[2020-12-03 14:11] LABS: Add Manual Diff / Slide Review NO; Basophils Absolute Auto 100 /uL (0-100); Basophils Percent Auto 0.9 % (0-2); Eosinophils Absolute Auto 0 /uL (0-450); Eosinophils Percent Auto 0.7 % (2-4); Hematocrit 42.7 % (36-46); Hemoglobin 14.3 g/dL (12.0-16.0); Lymphocytes Absolute Auto 1200 /uL (1100-4500); Mean Corpuscular HGB Conc 33.4 % (30-36); Mean Corpuscular Hemoglobin 31.7 PG (26-34); Monocytes Absolute Auto 400 /uL (0-900); Monocytes Percent Auto 5.9 % (3-14); Neutrophils Absolute Auto 5400 /uL (1500-7000); Neutrophils Percent Auto 75.5 % (50-75); Platelet Count 201 X10^3/uL (150-400); Red Blood Cell Count 4.49 X10^6/uL (4.0-5.2); White Blood Cell Count 7.1 X10^3/uL (4.5-11.0)
[2020-12-03 14:25] LABS: Alanine Aminotransferase 11 IU/L (<35); Albumin 4.3 g/dL (3.5-5.0); Albumin Globulin Ratio 1.3 (1.0-2.8); Alkaline Phosphatase 72 U/L (38-126); Aspartate Aminotransferase 16 IU/L (14-36); BUN Creatinine Ratio 17.2 (6-22); Bilirubin Total 0.9 mg/dL (0.2-1.3); Blood Urea Nitrogen 22 mg/dL (7-17); Calcium 8.9 mg/dL (8.4-10.2); Carbon Dioxide 28 mmol/L (22-32); Chloride 103 mmol/L (98-107); Estimated Glomerular Filt Rate 40.5 mL/min (>60); Globulin 3.2 g/dL (1.7-4.1); Glucose 95 mg/dL (80-110); HEMOLYSIS < 15 (0-50); Potassium 4.4 mmol/L (3.4-5.1); Sodium 137 mmol/L (137-145); Total Protein 7.5 g/dL (6.3-8.2)
== END ==
PROVIDERS: Internal Medicine Medical Oncology; PCP Family Medicine; Referring Provider Surgery; Visit Provider Surgery
DX: C21.0 Malignant neoplasm of anus, unspecified (principal)
CPT/HCPCS: 36415; 80053; 85025

== ENCOUNTER → 2020-12-11 10:40 | Outpatient (CLI) | payer MEDICARE, OTHER, SELFPAY ==
--- NOTE | 2020-12-11 10:42 | DI.MRI.S_ITS ---
PROCEDURE: MR ABDOME PELVIS WWO CON INDICATIONS: staging anal squamous cell carcinoma TECHNIQUE: After the ingestion of oral contrast, coronal and axial HASTE, coronal 2-D FLASH in-and [id number] sequences. After the administration of contrast, coronal and axial VIBE or 2-D FLASH with fat saturation sequences acquired through the abdomen and pelvis. Optional diffusion weighted imaging and ADC may be performed. COMPARISON: [facility], [place], [place] PET CT FUSION WHOLE BODY, 12/09/2020, 10:24. [facility], CT, CT CHEST W CON, 12/11/2020, 11:08. FINDINGS: Image quality: Excellent. Bowel and peritoneum: No colonic mass lesion is found, there is no sign of intestinal obstruction. No peritoneal mass or ascites is seen. Solid organs: Liver is normal in size and enhancement. Gallbladder appears normal . Biliary system is non dilated, without findings to suggest primary sclerosing cholangitis. Pancreas is normal in morphology, without evidence for autoimmune pancreatitis. Note is made of a small cyst at the posterior pancreatic head near the distal common duct, seen on series 5, image 25 and measuring 9 x 10 mm. It is not clear whether this communicates with the pancreatic duct, but no contrast enhancement is associated. No pancreatic ductal dilatation is present. Spleen is normal in size and enhancement. No adrenal nodules. Both kidneys are normal in size and enhancement, without hydronephrosis. Nodes and vessels: No retroperitoneal or mesenteric adenopathy. Aorta and inferior vena cava are normal in size. Lung bases: No basal pleural effusions. Heart size is normal. Pelvis: No free pelvic fluid. Inferior bowel loops are normal in caliber. No inguinal hernias or adenopathy. Note is made of several nabothian cysts at the cervix, there is also a centrally position fluid rich homogeneous presumed central cyst at the cervix measuring up to 3.6 cm transverse, 2.6 cm AP, and 2.9 cm craniocaudad. On reference to the recent PET-CT scanning 12/09/20 an anal focus of elevated isotope deposition was identified, at exactly the midline and measuring an estimated 1 cm in diameter. This structure cannot be identified as a discrete measurable entity on T1, T2 and postcontrast fat suppressed T1 scanning. Bones and soft tissues: No ventral hernias. Bone marrow is normal in overall signal. No findings to suggest sacroiliitis. Femoral heads demonstrate no avascular necrosis. IMPRESSION: 1. The anal carcinoma evident clinically and on nuclear medicine PET-CT scanning is small in size, measuring approximately 1 cm from PET-CT scanning, and not clearly visible as a discrete entity given its small size at the anal verge. This mass does not extend cephalad into the low rectum or surrounding soft tissues. No adenopathy or distant metastatic disease is associated. 2. Several scattered nabothian cysts are noted at the cervix, and there is a larger presumed cystic structure showing no contrast enhancement centrally position within the cervix, measuring up to 3.6 x 2.6 x 2.9 cm. This likely is a large chronic cervical cyst given absence of associated mass lesion. Please correlate clinically. Transvaginal pelvic ultrasound likely is warranted for further characterization. Dictated by: Rivera Mcgill M.D. on 12/11/2020 at 15:47 Approved by: Rivera Mcgill M.D. on 12/11/2020 at 16:12
--- NOTE | 2020-12-11 10:54 | DI.CT.S_ITS ---
PROCEDURE: CT CHEST W CON INDICATIONS: staging anal squamous cell carcinoma TECHNIQUE: After the administration of intravenous contrast, 5 mm thick sections acquired from the pulmonary apices to the posterior costophrenic angles. 1 mm axial lung, 5 mm thick coronal and sagittal reformats and 7 mm axial MIP were acquired. For radiation dose reduction, the following was used: automated exposure control, adjustment of mA and/or kV according to patient size. COMPARISON: [place], [place], [place] PET CT FUSION WHOLE BODY, 12/09/2020, 10:24. FINDINGS: Image quality: Excellent. Lungs and pleura: No acute air space opacities. No pleural effusions or pneumothorax. Central and peripheral airways are patent and normal in caliber. Mediastinum: Heart size is normal. No pericardial effusion. No mediastinal or hilar adenopathy by size criteria. Thoracic aorta and central pulmonary arteries are normal in size. Esophagus is normal in caliber. No hiatal hernia. Bones and chest wall: No suspicious bony lesions. No vertebral body compression fractures. No axillary or supraclavicular adenopathy by size criteria. Thyroid gland unremarkable. Degenerative disc disease and arthropathy in the lower cervical spine results in moderate to severe central stenosis at C6-7, partially imaged Abdomen: Visualized upper abdominal solid organs appear normal. Upper abdominal bowel loops are normal in caliber. IMPRESSION: 1. No evidence of metastatic disease. 2. Degenerative disc disease in the lower cervical spine results in moderate to severe central stenosis at C6-7 Approved by: Corey Le M.D. on 12/11/2020 at 13:42
== END ==
PROVIDERS: PCP Family Medicine; Referring Provider Surgery; Visit Provider Surgery
DX: C44.520 Squamous cell carcinoma of anal skin (principal); M50.323 Other cervical disc degeneration at C6-C7 level; M48.02 Spinal stenosis, cervical region; N88.8 Other specified noninflammatory disorders of cervix uteri
CPT/HCPCS: 71260; 72197; A9579; Q9967

== ENCOUNTER → 2020-12-28 12:28 | Outpatient (CLI) | payer MEDICARE, OTHER, SELFPAY ==
[2020-12-28 15:16] LABS: COVID19 -Nasal RAPID Negative (Negative)
== END ==
PROVIDERS: PCP Family Medicine; Visit Provider Surgery
DX: Z20.822 Contact with and (suspected) exposure to COVID-19 (principal); Z01.812 Encounter for preprocedural laboratory examination
CPT/HCPCS: 87635; C9803

== ENCOUNTER 2020-12-29 14:50 | Day surgery (SDC) | payer MEDICARE, OTHER, SELFPAY ==
[2020-12-25 13:43] VITALS: BMI 23.1
[2020-12-29 15:16] VITALS: BP 131/77; PULSE 66; RESP 15; TEMP 37.1; O2SAT 98; BMI 23.1
[2020-12-29] MEDS: LACTATED RINGERS 1,000 ML 42 ML IV (15:34)
--- NOTE | 2020-12-29 16:47 | PM.HP.1 ---
History of Present Illness History of Present Illness Date Patient Seen: 12/29/20 Time Patient Seen: 16:47 Chief complaint: SDC Narrative: Clementina is a 75-year-old woman who is here today for a Port-A-Cath placement. She was recently diagnosed with anal squamous cell carcinoma and is referred by Oncology for Port-A-Cath placement to facilitate her chemotherapy. She has never had a previous indwelling central venous catheter. She is currently feeling well. Patient History Medical History Facet arthropathy, lumbar Hayfever (1979) Hepatitis C (1991) History of fractured pelvis (2006) History of pelvic fracture Hypothyroidism (1966) Recurrent sinusitis (1979) Sacral dysfunction Tinnitus (1991) Surgical History Anesthesia History of cosmetic surgery (1981) History of facial surgery (1979) History of liver biopsy (1993) History of thyroidectomy (1968) Status post left foot surgery (2008) Status post tubal ligation (1975) Family & Social History Family History Sister Cancer Ovarian cancer Sister Age: 71 Breast cancer Brother Astrocytoma brain tumor Father Lung cancer Prostate cancer Grandfather No problems noted. Grandmother No problems noted. Mother Parkinson's disease Grandfather No problems noted. Social History: household members family lives independently Yes caregiver/support person No Tobacco & Substance use: Smoking Status Never smoker alcohol intake current alcohol intake frequency 0-2 drinks per day Substance Use Type does not use Meds Home Medications and Allergies Home Medications Medication Instructions Recorded Confirmed Type miscellaneous medical supply See Rx Instructions MISC DAILY #1 01/21/20 12/25/20 Rx each estradiol 0.05 mg/24 hr weekly See Rx Instructions .ROUTE 08/11/20 12/29/20 Rx transdermal patch .COMPLEX #12 each medroxyprogesterone 2.5 mg tablet See Rx Instructions .ROUTE 08/11/20 12/29/20 Rx .COMPLEX #90 tab triamterene 75 See Rx Instructions .ROUTE 08/11/20 12/29/20 Rx mg-hydrochlorothiazide 50 mg tablet .COMPLEX #90 tab hydrocortisone 2.5 % topical cream 1 applic CA BID PRN #30 g 09/14/20 12/25/20 Rx with perineal applicator (Anusol-HC) fluticasone propionate 50 See Rx Instructions .ROUTE 10/20/20 12/29/20 Rx mcg/actuation nasal .COMPLEX #48 gram spray,suspension levothyroxine 88 mcg tablet See Rx Instructions .ROUTE 10/20/20 12/29/20 Rx (Synthroid) .COMPLEX #90 tab Allergies Allergy/AdvReac Type Severity Reaction Status Date / Time No Known Allergies Allergy Verified 12/29/20 15:33 Review of Systems Review of Systems ROS: Yes All systems reviewed with the patient and are negative except as otherwise documented Exam Vital Signs (past 8 hours): - 12/29/20 15:16 Temperature 98.7 F Pulse Rate 66 Respiratory Rate 15 Blood Pressure 131/77 Pulse Oximetry 98 Oxygen Delivery Method Room Air Narrative Exam Narrative: Constitutional-She is oriented to person, place and time. No apparent distress Cardiovascular- regular rate, no peripheral edema Pulmonary-unlabored respiratory effort, no audible wheezing Abdominal-soft, non-tender, non-distended Musculoskeletal-no cyanosis or clubbing Neurological-nonfocal, normal strength throughout Skin-warm and dry Assessment & Plan Assessment and plan (1) Anal squamous cell carcinoma: Status: Acute Assessment & Plan narrative: Clementina is a 75-year-old woman with a recent diagnosis of anal squamous cell carcinoma here for a Port-A-Cath placement. Technical details of the procedure were discussed with the patient. Procedural risks including bleeding, infection, device malfunction, embolism, were discussed. Her questions have been answered and she is in agreement with this plan. Time Spent With Patient Critical Care time: I spent a total of [] minutes of critical care time on this patient's care today; this time is exclusive of procedural time.
--- NOTE | 2020-12-29 17:03 | SUR.OPER ---
Supine on padded OR bed, head on pillow, arms padded and tucked at sides, legs uncrossed, safety belt at thigh, tape over blanket over lower legs .
[2020-12-29] MEDS: CEFAZOLIN 1 GM VIAL 2 GM IV (17:15)
[2020-12-29] MEDS: HEPARIN 5,000 UNIT, SODIUM CHLORIDE 0.9% 50 ML IV (17:25)
[2020-12-29] MEDS: BUPIVACAINE 0.25% (PF) VIAL 30 ML INJ (17:31)
--- NOTE | 2020-12-29 18:00 | DI.RAD.S_ITS ---
PROCEDURE: XR CHEST 1V INDICATIONS: PORT A CATH TECHNIQUE: One view of the chest was acquired. COMPARISON: [facility], CT, CT CHEST W CON, 12/11/2020, 11:08. FINDINGS: Surgical changes and devices: Tunneled right port device is present. Distal tip projects over the mid SVC. Lungs and pleura: Lungs are clear. No pleural effusions or pneumothorax. Mediastinum: Mediastinal contours appear normal. Heart size is normal. Bones and chest wall: No suspicious bony lesions. Overlying soft tissues appear unremarkable. IMPRESSION: Placement of right tunneled port device with distal tip projecting over the mid SVC. No pneumothorax. No acute cardiopulmonary abnormalities. Dictated by: Chava Lopez M.D. on 12/30/2020 at 9:45 Approved by: Chava Lopez M.D. on 12/30/2020 at 9:49
--- NOTE | 2020-12-29 18:07 | PM.OP.1 ---
Operative Date/Time/Diagnoses Date of procedure: 12/29/20 Time of procedure: 18:07 Pre-op diagnosis: anal cancer Post-op diagnosis: same Procedure & Clinicians Procedure: port a cath placement Same procedure as scheduled: Yes Indications: anal squamous cell carcinoma Surgeon: Edmar Ritter Click Yes if Unassisted: Yes Anesthesia Type: General Operative Notes Findings: tip of the catheter within the SVC Estimated Blood Loss (mL): 20 Procedure in detail: Patient was brought to the operating room placed supine on table. Bilateral lower extremity compressive devices were applied. General anesthesia was induced and he was intubated with an LMA. She was then prepped and draped in usual sterile fashion. Time-out was performed ensure the correct patient procedure necessary equipment within the operating room. She received 2 g of Ancef prior to incision. Under ultrasound guidance the right internal jugular vein was accessed under direct visualization. The guidewire was then threaded through the needle. Its placement was then confirmed using fluoroscopy. The dilator was then placed over the guidewire. The catheter was then inserted through the sheath. Placement was again confirmed with fluoroscopy. A subcutaneous pocket was made in the right chest wall. The tunneler device was used to move the catheter from the neck to the chest pocket. The port was attached after it was primed with heparined saline. The port was tested to ensure that it flushed easily and had good blood return. The port was then secured to the underlying fascia using interupted 0 Prolene suture. Hemostasis was achieved. The wound was irrigated with sterile saline. The subcutaneous tissues were reapproximated with the 3 0 Vicryl and then skin closed with 4-0 Monocryl. The skin was sealed with Dermabond. Patient tolerated procedure well. The sponge and instrument count at the end operation was correct. Patient emerged from general anesthesia was extubated and taken to the postoperative care unit in stable condition Complications: none Post-operative Condition: stable Disposition: same day surgery
[2020-12-29 18:10] VITALS: BP 100/34; PULSE 64; RESP 8; TEMP 36.3; O2SAT 99
[2020-12-29 18:14] VITALS: BP 113/57; PULSE 63; RESP 10; O2SAT 97
[2020-12-29 18:21] VITALS: BP 123/78; PULSE 56; RESP 13; O2SAT 97
[2020-12-29 18:24] VITALS: BP 121/69; PULSE 55; RESP 15; O2SAT 100
[2020-12-29 18:46] VITALS: BP 134/40; PULSE 61; RESP 16; TEMP 36.9; O2SAT 100
--- NOTE | 2020-12-29 18:58 | SUR.PHASEII ---
Dr Ritetr to bedside, spoke with pt, pt ready to go, ride called, left unit in stable condition.
== END 2020-12-29 18:55 | disposition home or self-care (01) ==
PROVIDERS: PCP Family Medicine; Referring Provider Surgery; Visit Provider Surgery
PROC: (CPT 36561; principal; 2020-12-29 15:45)
DX: C21.0 Malignant neoplasm of anus, unspecified (principal); Z45.2 Encounter for adjustment and management of vascular access device; E03.9 Hypothyroidism, unspecified
CPT/HCPCS: 36561; 71045; 76000; C1788; J0690; J1100; J1644; J2405; J2704; J3010

== ENCOUNTER → 2021-02-25 16:12 | Outpatient (ROUT) | payer MEDICARE, OTHER, SELFPAY ==
[2021-02-25 16:25] LABS: Alanine Aminotransferase 190 IU/L (<35); Albumin 2.9 g/dL (3.5-5.0); Albumin Globulin Ratio 1.1 (1.0-2.8); Alkaline Phosphatase 136 U/L (38-126); Aspartate Aminotransferase 100 IU/L (14-36); BUN Creatinine Ratio 43.8 (6-22); Bilirubin Total 1.3 mg/dL (0.2-1.3); Blood Urea Nitrogen 42 mg/dL (7-17); Calcium 8.6 mg/dL (8.4-10.2); Carbon Dioxide 24 mmol/L (22-32); Chloride 104 mmol/L (98-107); Estimated Glomerular Filt Rate 56.4 mL/min (>60); Globulin 2.7 g/dL (1.7-4.1); Glucose 98 mg/dL (80-110); HEMOLYSIS < 15 (0-50); Magnesium 1.6 mg/dL (1.6-2.3); Phosphorous 3.3 mg/dL (2.8-4.1); Sodium 135 mmol/L (137-145); Total Protein 5.6 g/dL (6.3-8.2)
[2021-02-25 16:29] LABS: Add Manual Diff / Slide Review NO; Basophils Absolute Auto 0 /uL (0-100); Basophils Percent Auto 0.2 % (0-2); Eosinophils Absolute Auto 0 /uL (0-450); Eosinophils Percent Auto 0.4 % (2-4); Hematocrit 27.9 % (36-46); Hemoglobin 9.6 g/dL (12.0-16.0); Lymphocytes Absolute Auto 200 /uL (1100-4500); Lymphocytes Percent Auto 7.3 % (25-40); Mean Corpuscular HGB Conc 34.6 % (30-36); Mean Corpuscular Hemoglobin 32.3 PG (26-34); Mean Corpuscular Volume 93.2 fL (80-100); Monocytes Absolute Auto 400 /uL (0-900); Monocytes Percent Auto 11.6 % (3-14); Neutrophils Absolute Auto 2700 /uL (1500-7000); Neutrophils Percent Auto 80.5 % (50-75); Platelet Count 58 X10^3/uL (150-400); Red Blood Cell Count 2.99 X10^6/uL (4.0-5.2); Red Cell Distribution Width 14.6 % (11.6-14.8); White Blood Cell Count 3.3 X10^3/uL (4.5-11.0)
== END ==
PROVIDERS: PCP Family Medicine; Visit Provider Internal Medicine Medical Oncology
DX: C21.0 Malignant neoplasm of anus, unspecified (principal)
CPT/HCPCS: 80053; 83735; 84100; 85025

== ENCOUNTER → 2021-03-14 13:02 | Outpatient (ROUT) | payer MEDICARE, OTHER, SELFPAY ==
[2021-03-14 13:14] LABS: Hemoglobin 11.1 g/dL (12.0-16.0); White Blood Cell Count 4.9 X10^3/uL (4.5-11.0)
[2021-03-14 13:24] LABS: Alanine Aminotransferase 19 IU/L (<35); Albumin 2.7 g/dL (3.5-5.0); Albumin Globulin Ratio 0.9 (1.0-2.8); Alkaline Phosphatase 68 U/L (38-126); Aspartate Aminotransferase 24 IU/L (14-36); BUN Creatinine Ratio 37.9 (6-22); Bilirubin Total 0.6 mg/dL (0.2-1.3); Blood Urea Nitrogen 39 mg/dL (7-17); C-Reactive Protein Quant 0.5 mg/dL (<1.0); Calcium 8.3 mg/dL (8.4-10.2); Carbon Dioxide 23 mmol/L (22-32); Chloride 106 mmol/L (98-107); Globulin 2.9 g/dL (1.7-4.1); Glucose 121 mg/dL (80-110); HEMOLYSIS < 15 (0-50); Hematocrit 32.3 % (36-46); Magnesium 1.8 mg/dL (1.6-2.3); Mean Corpuscular HGB Conc 34.4 % (30-36); Mean Corpuscular Hemoglobin 32.9 PG (26-34); Mean Corpuscular Volume 95.7 fL (80-100); Phosphorous 3.8 mg/dL (2.8-4.1); Platelet Count 191 X10^3/uL (150-400); Potassium 4.4 mmol/L (3.4-5.1); Red Blood Cell Count 3.37 X10^6/uL (4.0-5.2); Red Cell Distribution Width 18.9 % (11.6-14.8); Sodium 135 mmol/L (137-145); Total Protein 5.6 g/dL (6.3-8.2); Triglycerides 165 mg/dL (35-150)
[2021-03-14 13:26] LABS: Add Manual Diff / Slide Review YES
[2021-03-14 13:43] LABS: Prealbumin 18.3 mg/dL (17.6-36.0)
[2021-03-14 13:51] LABS: Neutrophils Absolute Manual 3773 /uL (3000-5900); Total Cells Counted 100
[2021-03-14 13:52] LABS: Anisocytosis 2+; Poikilocytosis 1+
== END ==
PROVIDERS: PCP Family Medicine; Visit Provider Internal Medicine Medical Oncology
DX: C21.0 Malignant neoplasm of anus, unspecified (principal)
CPT/HCPCS: 80053; 83735; 84100; 84134; 84478; 85007; 85025; 86140

== ENCOUNTER → 2021-05-04 12:16 | Outpatient (CLI) | payer MEDICARE, OTHER, SELFPAY ==
[2021-05-04 13:40] LABS: BUN Creatinine Ratio 22.6 (6-22); Blood Urea Nitrogen 30 mg/dL (7-17); Calcium 8.8 mg/dL (8.4-10.2); Carbon Dioxide 27 mmol/L (22-32); Chloride 105 mmol/L (98-107); Estimated Glomerular Filt Rate 38.7 mL/min (>60); Glucose 91 mg/dL (80-110); HEMOLYSIS 15 (0-50); Potassium 4.4 mmol/L (3.4-5.1); Sodium 137 mmol/L (137-145)
[2021-05-04 14:10] LABS: Thyroid Stimulating Hormone 1.59 uIU/mL (0.47-4.68)
== END ==
PROVIDERS: PCP Family Medicine; Referring Provider Family Medicine; Visit Provider Family Medicine
DX: E03.9 Hypothyroidism, unspecified (principal); I10 Essential (primary) hypertension; N18.32 Chronic kidney disease, stage 3b
CPT/HCPCS: 36415; 80048; 84443

== ENCOUNTER → 2021-05-13 10:17 | Outpatient (CLI) | payer MEDICARE, OTHER, SELFPAY ==
[2021-05-13 10:31] LABS: Add Manual Diff / Slide Review NO; Basophils Absolute Auto 0 /uL (0-100); Basophils Percent Auto 1.1 % (0-2); Eosinophils Absolute Auto 200 /uL (0-450); Eosinophils Percent Auto 4.1 % (2-4); Hemoglobin 11.9 g/dL (12.0-16.0); Lymphocytes Absolute Auto 800 /uL (1100-4500); Mean Corpuscular HGB Conc 34.1 % (30-36); Mean Corpuscular Hemoglobin 32.7 PG (26-34); Mean Corpuscular Volume 95.7 fL (80-100); Monocytes Absolute Auto 300 /uL (0-900); Monocytes Percent Auto 7.6 % (3-14); Neutrophils Absolute Auto 3000 /uL (1500-7000); Neutrophils Percent Auto 69.2 % (50-75); Platelet Count 153 X10^3/uL (150-400); Red Blood Cell Count 3.65 X10^6/uL (4.0-5.2); Red Cell Distribution Width 13.9 % (11.6-14.8); White Blood Cell Count 4.4 X10^3/uL (4.5-11.0)
[2021-05-13 10:45] LABS: Alanine Aminotransferase 10 IU/L (<35); Albumin 3.7 g/dL (3.5-5.0); Albumin Globulin Ratio 1.1 (1.0-2.8); Alkaline Phosphatase 44 U/L (38-126); Aspartate Aminotransferase 20 IU/L (14-36); BUN Creatinine Ratio 22.5 (6-22); Bilirubin Total 0.5 mg/dL (0.2-1.3); Blood Urea Nitrogen 31 mg/dL (7-17); Calcium 8.6 mg/dL (8.4-10.2); Carbon Dioxide 27 mmol/L (22-32); Chloride 108 mmol/L (98-107); Estimated Glomerular Filt Rate 37.1 mL/min (>60); Globulin 3.3 g/dL (1.7-4.1); Glucose 94 mg/dL (80-110); HEMOLYSIS < 15 (0-50); Potassium 4.6 mmol/L (3.4-5.1); Sodium 139 mmol/L (137-145)
== END ==
PROVIDERS: Internal Medicine Medical Oncology; PCP Family Medicine; Referring Provider Family Medicine; Visit Provider Family Medicine
DX: C21.0 Malignant neoplasm of anus, unspecified (principal); Z45.2 Encounter for adjustment and management of vascular access device
CPT/HCPCS: 36415; 80053; 85025; 99212

== ENCOUNTER → 2021-05-18 07:59 | Outpatient (CLI) | payer MEDICARE, OTHER, SELFPAY ==
--- NOTE | 2021-05-18 08:00 | DI.ECHO.S_ITS ---
[facility] +---------+ : : [address] : : : : [id number] : : : : Phone: [phone] Echocardiogram Report + + :Name: LAURO VILLALTA Study Date: 05/18/2021 Height: 65 in : :[facility] ReadingLocation: Weight: 143 lb : : Gender: Female BSA: 1.7 m2 : :: 1945 Age: 76 yrs BP: 132/74 mmHg: :Reason For Study: EDEMA : :Ordering Physician: CEDRIC, : :MICHELLE Performed By: Maribell Solis : :Referring: MICHELLE STEELE : + + Interpretation Summary The left ventricle is normal in size and wall thickness. Left ventricular systolic function appears normal without focal wall motion abnormalities. The ejection fraction is estimated to be 60-65%. Diastolic parameters suggest a relaxation abnormality of the left ventricle, consistent with probable normal filling pressures. The right ventricle is normal in size and function. The right ventricular systolic pressure is estimated to be at least 20 mmHg based on an estimated right atrial pressure of 3 mm Hg. The left atrial size is normal. The right atrium is mildly dilated. There is no significant valvular heart disease. The aortic root is normal size. There is a trivial pericardial effusion noted. Procedure: A two-dimensional transthoracic echocardiogram with color flow and Doppler was performed. The study quality was technically adequate. There is no prior echocardiogram noted for this patient. The patient was in sinus rhythm with heart rates between 60-64 bpm during the exam. Left Ventricle: The left ventricle is normal in size and wall thickness. Left ventricular systolic function appears normal without focal wall motion abnormalities. The ejection fraction is estimated to be 60-65%. Diastolic parameters suggest a relaxation abnormality of the left ventricle, consistent with probable normal filling pressures. Right Ventricle: The right ventricle is normal in size and function. Atria: The left atrial size is normal. The right atrium is mildly dilated. There is no Doppler evidence for an interatrial shunt. Mitral Valve: The mitral valve is normal in structure and function. There is trace mitral regurgitation. Aortic Valve: The aortic valve is trileaflet. The aortic valve opens well. There is no aortic valve stenosis. No aortic regurgitation is present. Tricuspid Valve: The tricuspid valve is normal in structure and function. There is mild tricuspid regurgitation. The right ventricular systolic pressure is estimated to be at least 20 mmHg based on an estimated right atrial pressure of 3 mm Hg. Pulmonic Valve: The pulmonic valve leaflets are thin and pliable; valve motion is normal. There is trace pulmonic regurgitation. There is no significant valvular heart disease. Great Vessels: The aortic root is normal size. The dimensions of the ascending aorta are normal. The IVC is of normal diameter and collapses greater than 50% with a sniff. This suggests a low right atrial pressure of 3 mm Hg. Pericardium/ Pleura There is a trivial pericardial effusion noted. There is no pleural effusion. MMode/2D Measurements & Calculations LVIDd: 4.3 cm LVOT diam: 2.0 cm LVIDs: 2.8 cm Ao root diam: 3.0 cm FS: 35.6 % asc Aorta Diam: 3.3 cm IVSd: 0.82 cm Ao Arch Diam (Prox Trans): 2.1 cm LVPWd: 0.79 cm LV desir. diameter/BSA (cm/m^2): 2.5 LV sys. diameter/BSA (cm/m^2): 1.6 LA A2 area: 16.0 cm2 RA long axis: 4.6 cm LA A4 area: 16.9 cm2 RA area: 16.7 cm2 LA length (vol): 5.5 cm RA vol: 51.3 ml LA vol: 41.5 ml RA : 29.9 ml/m2 LA vol index: 24.2 ml/m2 IVC diam: 1.9 cm RVD1 (basal): 3.6 cm TAPSE: 2.1 cm Doppler Measurements & Calculations Ao V2 max: 134.6 cm/sec LVOT Max Chava: 102.3 cm/sec Ao V2 mean: 92.7 cm/sec LV V1 max P.2 mmHg Ao max P.2 mmHg LV V1 VTI: 24.3 cm Ao mean P.8 mmHg SONALI(I,D): 2.6 cm2 Ao V2 VTI: 29.6 cm SONALI(V,D): 2.4 cm2 sev ratio: 0.82 SONALI indexed to BSA (cm^2/m^2): 1.5 MV E max chava: 70.1 cm/sec TR max chava: 208.4 cm/sec MV A max chava: 80.4 cm/sec TR max P.4 mmHg MV E/A: 0.87 PA V2 max: 83.4 cm/sec Med Peak E' Chava: 5.9 cm/sec PA V2 mean: 56.3 cm/sec E/E' med: 11.9 PA mean P.5 mmHg Lat Peak E' Chava: 7.9 cm/sec PA pr(Accel): 24.2 mmHg E/E' lat: 8.8 E/e' average: 10.4 MV dec time: 0.31 sec SV(LVOT): 77.2 ml Reading Physician:02:10 PM
== END ==
PROVIDERS: PCP Family Medicine; Referring Provider Family Medicine; Visit Provider Family Medicine
DX: I07.1 Rheumatic tricuspid insufficiency (principal); I10 Essential (primary) hypertension
CPT/HCPCS: 93306

== ENCOUNTER → 2021-05-18 10:30 | Outpatient (CLI) | payer MEDICARE, OTHER, SELFPAY | PROVIDERS: PCP Family Medicine; Visit Provider Family Medicine | DX: N89.8 Other specified noninflammatory disorders of vagina (principal) | CPT/HCPCS: 87070; 87205; 87210 ==

== ENCOUNTER → 2021-06-03 15:21 | Outpatient (CLI) | payer MEDICARE, OTHER, SELFPAY ==
[2021-06-03 16:09] LABS: BUN Creatinine Ratio 16.2 (6-22); Blood Urea Nitrogen 21 mg/dL (7-17); Calcium 8.4 mg/dL (8.4-10.2); Carbon Dioxide 27 mmol/L (22-32); Chloride 110 mmol/L (98-107); Estimated Glomerular Filt Rate 39.7 mL/min (>60); Glucose 122 mg/dL (80-110); HEMOLYSIS < 15 (0-50); Potassium 4.4 mmol/L (3.4-5.1); Sodium 140 mmol/L (137-145)
== END ==
PROVIDERS: PCP Family Medicine; Referring Provider Family Medicine; Visit Provider Family Medicine
DX: N28.9 Disorder of kidney and ureter, unspecified (principal)
CPT/HCPCS: 36415; 80048

== ENCOUNTER → 2021-08-23 08:47 | Outpatient (CLI) | payer MEDICARE, OTHER, SELFPAY ==
[2021-08-23 09:33] LABS: Add Manual Diff / Slide Review NO; Basophils Absolute Auto 100 /uL (0-100); Basophils Percent Auto 1.1 % (0-2); Eosinophils Absolute Auto 100 /uL (0-450); Eosinophils Percent Auto 3.1 % (2-4); Hemoglobin 12.3 g/dL (12.0-16.0); Lymphocytes Absolute Auto 500 /uL (1100-4500); Lymphocytes Percent Auto 10.9 % (25-40); Mean Corpuscular HGB Conc 34.3 % (30-36); Mean Corpuscular Hemoglobin 32.9 PG (26-34); Mean Corpuscular Volume 95.9 fL (80-100); Monocytes Absolute Auto 300 /uL (0-900); Monocytes Percent Auto 5.6 % (3-14); Neutrophils Absolute Auto 3800 /uL (1500-7000); Neutrophils Percent Auto 79.3 % (50-75); Platelet Count 168 X10^3/uL (150-400); Red Blood Cell Count 3.75 X10^6/uL (4.0-5.2); Red Cell Distribution Width 15.6 % (11.6-14.8); White Blood Cell Count 4.8 X10^3/uL (4.5-11.0)
[2021-08-23 09:59] LABS: Alanine Aminotransferase 10 IU/L (<35); Albumin 3.2 g/dL (3.5-5.0); Albumin Globulin Ratio 1.1 (1.0-2.8); Alkaline Phosphatase 57 U/L (38-126); Aspartate Aminotransferase 15 IU/L (14-36); BUN Creatinine Ratio 16.2 (6-22); Bilirubin Total 0.3 mg/dL (0.2-1.3); Blood Urea Nitrogen 25 mg/dL (7-17); Calcium 8.1 mg/dL (8.4-10.2); Carbon Dioxide 29 mmol/L (22-32); Chloride 107 mmol/L (98-107); Estimated Glomerular Filt Rate 35 mL/min (>60); Globulin 2.8 g/dL (1.7-4.1); Glucose 93 mg/dL (80-110); HEMOLYSIS < 15 (0-50); Phosphorous 3.8 mg/dL (2.8-4.1); Potassium 4.8 mmol/L (3.4-5.1); Sodium 137 mmol/L (137-145)
[2021-08-23 11:07] LABS: Appearance Urine UA CLEAR; Bilirubin Urine UA NEGATIVE (NEGATIVE); Color Urine UA YELLOW; Glucose Urine UA NEGATIVE (Negative); Ketones Urine UA NEGATIVE (NEGATIVE); Leukocyte Esterase Urine UA TRACE (NEGATIVE); Nitrite Urine UA NEGATIVE (Negative); Occult Blood Urine UA TRACE-INTACT (Negative); Protein Urine UA 3+ (Negative); Urobilinogen Urine UA 0.2 E.U./dL (0.2)
[2021-08-23 11:10] LABS: pH Urine UA 6.5 (4.5-8.0)
[2021-08-23 11:11] LABS: Bacteria Urine None Seen; Culture Indicated Urine Cult Not Indicated; RBC Urine None Seen (0-5/HPF); Squamous Epithelial Cell Urine 5-10 /HPF (0-5/HPF); WBC Urine 5-10/HPF (0-5/HPF)
[2021-08-23 11:27] LABS: Creatinine Urine Random 128.1 mg/dL
[2021-08-23 12:46] LABS: Microalbumi Creatinin Ratio Ur 8485.5 ug/mg CR (<30)
== END ==
PROVIDERS: PCP Family Medicine; Referring Provider Internal Medicine Nephrology; Visit Provider Internal Medicine Nephrology
DX: E83.42 Hypomagnesemia (principal); N18.32 Chronic kidney disease, stage 3b
CPT/HCPCS: 36415; 80053; 81001; 82043; 82570; 83735; 84100; 85025

== ENCOUNTER → 2021-11-06 11:59 | Outpatient (CLI) | payer MEDICARE, OTHER, SELFPAY ==
[2021-11-06 12:41] LABS: Alanine Aminotransferase 12 IU/L (<35); Albumin Globulin Ratio 1.4 (1.0-2.8); Alkaline Phosphatase 58 U/L (38-126); Aspartate Aminotransferase 17 IU/L (14-36); BUN Creatinine Ratio 27.8 (6-22); Bilirubin Total 0.5 mg/dL (0.2-1.3); Blood Urea Nitrogen 44 mg/dL (7-17); Calcium 8.4 mg/dL (8.4-10.2); Carbon Dioxide 29 mmol/L (22-32); Chloride 100 mmol/L (98-107); Estimated Glomerular Filt Rate 34 mL/min (>60); Globulin 2.9 g/dL (1.7-4.1); Glucose 90 mg/dL (80-110); HEMOLYSIS < 15 (0-50); Sodium 138 mmol/L (137-145); Total Protein 6.9 g/dL (6.3-8.2)
== END ==
PROVIDERS: PCP Family Medicine; Referring Provider Internal Medicine Nephrology; Visit Provider Internal Medicine Nephrology
DX: N04.1 Nephrotic syndrome with focal and segmental glomerular lesions (principal)
CPT/HCPCS: 36415; 80053

== ENCOUNTER → 2021-11-22 12:44 | Outpatient (CLI) | payer MEDICARE, OTHER, SELFPAY ==
--- NOTE | 2021-11-22 12:45 | DI.RAD.S_ITS ---
PROCEDURE: XR LUMBAR SPINE MIN 4V INDICATIONS: BACK PAIN TECHNIQUE: 5 views of the lumbar spine were acquired, including bilateral oblique views. COMPARISON: [facility], CR, XR LUMBAR SPINE 2-3V, 12/31/2019, 9:30. FINDINGS: Bones: 5 nonrib-bearing vertebrae are present. There is normal bony alignment. No vertebral body compression fractures. No suspicious bony lesions. Multilevel disc space narrowing degenerative endplate changes are seen with bridging osteophyte formation. Facet hypertrophy is seen throughout the lumbar spine. Soft tissues: Overlying bowel gas pattern is normal. No suspicious soft tissue calcifications. Oblique images: No definite pars defects. Linear lucency in the region of the L4 pars interarticularis appears to be secondary to hypertrophic facet hypertrophy rather than a pars defect. IMPRESSION: Moderate multilevel spondylosis with prominent facet hypertrophy. If the symptoms persist, consider cross sectional imaging such as MRI or CT for further assessment. Dictated by: Tevin Boyer M.D. on 11/22/2021 at 14:45 Approved by: Tevin Boyer M.D. on 11/22/2021 at 14:50
== END ==
PROVIDERS: PCP Family Medicine; Referring Provider Physical Medicine & Rehabilitation; Visit Provider Physical Medicine & Rehabilitation
DX: M47.816 Spondylosis without myelopathy or radiculopathy, lumbar region (principal)
CPT/HCPCS: 72110

== ENCOUNTER → 2021-12-23 12:17 | Outpatient (CLI) | payer MEDICARE, OTHER, SELFPAY ==
[2021-12-23 13:37] LABS: Add Manual Diff / Slide Review NO; Basophils Absolute Auto 0 /uL (0-100); Basophils Percent Auto 0.7 % (0-2); Eosinophils Absolute Auto 100 /uL (0-450); Eosinophils Percent Auto 1.1 % (2-4); Hematocrit 36.6 % (36-46); Hemoglobin 12.7 g/dL (12.0-16.0); Lymphocytes Absolute Auto 600 /uL (1100-4500); Lymphocytes Percent Auto 13.2 % (25-40); Mean Corpuscular HGB Conc 34.6 % (30-36); Mean Corpuscular Hemoglobin 33.6 PG (26-34); Mean Corpuscular Volume 97.1 fL (80-100); Monocytes Absolute Auto 300 /uL (0-900); Monocytes Percent Auto 6.5 % (3-14); Neutrophils Absolute Auto 3700 /uL (1500-7000); Neutrophils Percent Auto 78.5 % (50-75); Platelet Count 178 X10^3/uL (150-400); Red Blood Cell Count 3.77 X10^6/uL (4.0-5.2); Red Cell Distribution Width 14.5 % (11.6-14.8); White Blood Cell Count 4.8 X10^3/uL (4.5-11.0)
[2021-12-23 14:28] LABS: Alanine Aminotransferase 13 IU/L (<35); Albumin 3.8 g/dL (3.5-5.0); Albumin Globulin Ratio 1.2 (1.0-2.8); Alkaline Phosphatase 58 U/L (38-126); Aspartate Aminotransferase 18 IU/L (14-36); BUN Creatinine Ratio 21.5 (6-22); Bilirubin Total 0.5 mg/dL (0.2-1.3); Blood Urea Nitrogen 37 mg/dL (7-17); Calcium 8.5 mg/dL (8.4-10.2); Carbon Dioxide 32 mmol/L (22-32); Chloride 97 mmol/L (98-107); Estimated Glomerular Filt Rate 30 mL/min (>60); Globulin 3.1 g/dL (1.7-4.1); Glucose 146 mg/dL (80-110); HEMOLYSIS < 15 (0-50); Phosphorous 3.4 mg/dL (2.8-4.1); Potassium 4.1 mmol/L (3.4-5.1); Sodium 138 mmol/L (137-145); Total Protein 6.9 g/dL (6.3-8.2)
[2021-12-23 16:06] LABS: Creatinine Urine Random 34.6 mg/dL; Protein (Total) Urine Random 63 mg/dL (0-12); Protein Creatinine Ratio Urine 1.82 GRAM/24H
== END ==
PROVIDERS: PCP Family Medicine; Referring Provider Internal Medicine Nephrology; Visit Provider Internal Medicine Nephrology
DX: N04.9 Nephrotic syndrome with unspecified morphologic changes (principal)
CPT/HCPCS: 36415; 80053; 82570; 84100; 84156; 85025

== ENCOUNTER → 2022-01-11 16:33 | Outpatient (CLI) | payer MEDICARE, OTHER, SELFPAY ==
[2022-01-11 18:26] LABS: BUN Creatinine Ratio 19.4 (6-22); Blood Urea Nitrogen 28 mg/dL (7-17); Calcium 8.9 mg/dL (8.4-10.2); Carbon Dioxide 27 mmol/L (22-32); Chloride 104 mmol/L (98-107); Estimated Glomerular Filt Rate 37 mL/min (>60); Glucose 73 mg/dL (80-110); HEMOLYSIS < 15 (0-50); Phosphorous 3.8 mg/dL (2.8-4.1); Potassium 4.1 mmol/L (3.4-5.1); Sodium 140 mmol/L (137-145)
[2022-01-11 18:42] LABS: Free T4, Direct Thyroxine 1.19 ng/dL (0.78-2.19)
[2022-01-11 18:56] LABS: Thyroid Stimulating Hormone 2.35 uIU/mL (0.47-4.68)
== END ==
PROVIDERS: PCP Family Medicine; Referring Provider Internal Medicine Nephrology; Visit Provider Internal Medicine Nephrology
DX: E03.9 Hypothyroidism, unspecified (principal); N18.32 Chronic kidney disease, stage 3b
CPT/HCPCS: 36415; 80069; 84439; 84443

== ENCOUNTER → 2022-01-11 16:53 | Outpatient (CLI) | payer MEDICARE, OTHER, SELFPAY ==
--- NOTE | 2022-01-11 16:57 | DI.US.S_ITS ---
PROCEDURE: US PELVIC COMPLETE INDICATIONS: eval cyst on cervix TECHNIQUE: Real-time scanning was performed of the pelvic organs, with image documentation. Additional endovaginal scanning was necessary due to incomplete visualization of the adnexal and endometrial structures by transabdominal scanning. COMPARISON: None. FINDINGS: Uterus: Uterus is anteverted and normal in size at 6.3 x 3.6 x 3.6 cm. The myometrium is heterogeneous with 0.8 x 0.6 x 0.9 cm intramural fibroid seen in anterior left myometrium and 1.8 x 2 x 1.4 cm intramural fibroid in left myometrium. The endometrium measures 4.9 mm combined thickness. Heterogeneous endometrial echotexture is seen with focal calcified areas seen within endometrium measures 6 x 3 x 5 mm in size. Complex fluid is noted within endocervical canal with possible internal solid component. Complex appearing nabothian cysts are also seen measures up to 1 x 0.8 x 1 cm in size. Ovaries: The right ovary measures 1.8 x 0.6 x 1 cm, with a calculated ovarian volume of 1 cc. The left ovary is not visualized. Less than 12 follicles can be seen in right ovary. No adnexal masses are seen. Other: No pathologic free abdominal or pelvic fluid. IMPRESSION: 1. Heterogeneous myometrium with small intramural fibroids as above. 2. Abnormal appearance of endometrium with heterogeneous echotexture and focal area of calcifications. Complex fluid noted within endocervical canal with possible internal solid component. Complex appearing nabothian cysts. Neoplastic process involving cervix/endometrium cannot be excluded. [employer] correlation is recommended. 3. No gross abnormality is seen in right ovary. Left ovary is not visualized on this study. We strive to produce accurate, complete, and clear reports of imaging services. To assist us in improving patient care, this report was composed using standard report templates and voice recognition software. Therefore, it may contain abnormal punctuation, insertions and/or omissions. Occasional wrong-word or sound-alike substitutions may occur. Though we review the report and make efforts to correct it, we do recommend that the report be read carefully in proper context to recognize any text inaccuracies. Dictated by: Bob Chavez M.D. on 01/12/2022 at 10:55 Approved by: Bob Chavez M.D. on 01/12/2022 at 10:59
== END ==
PROVIDERS: PCP Family Medicine; Referring Provider Family Medicine; Visit Provider Family Medicine
DX: D25.1 Intramural leiomyoma of uterus (principal); N88.8 Other specified noninflammatory disorders of cervix uteri; N18.32 Chronic kidney disease, stage 3b; E03.9 Hypothyroidism, unspecified
CPT/HCPCS: 36415; 76830; 76856; 80069; 84439; 84443

== ENCOUNTER → 2022-02-21 10:06 | Outpatient (CLI) | payer MEDICARE, OTHER, SELFPAY ==
[2022-02-21 10:50] LABS: COVID19 -Nasal RAPID Negative (Negative)
== END ==
PROVIDERS: PCP Family Medicine; Visit Provider Obstetrics & Gynecology
DX: Z01.812 Encounter for preprocedural laboratory examination (principal); Z20.822 Contact with and (suspected) exposure to COVID-19
CPT/HCPCS: 87635

== ENCOUNTER 2022-02-21 10:17 | Day surgery (SDC) | payer MEDICARE, OTHER, SELFPAY ==
[2022-02-17 14:38] VITALS: BMI 22.4
[2022-02-21] VITALS (9 sets, daily range): BP systolic 127–147; BP diastolic 65–86; PULSE 69–83; RESP 15–21; TEMP 36.1–36.3; O2SAT 96–100; BMI 22.4
--- NOTE | 2022-02-21 | PATH_ITS ---
[facility] [place] Accession Number: [id number] . 01 Material submitted: . PART A: cervix - CERVICAL MASS PART B: endocervix - ENDOCERVICAL MATERIAL PART C: endometrium - ENDOMETRIAL CURETTAGE PART D: ectocervix - ECTOCERVICAL BIOPSY . 01 Diagnosis: A. Uterine Cervix, Mass, Excision: Hyalinized and calcified nodule of apparent benign smooth muscle proliferation. No definite evidence of significant atypia or malignancy. See comment. . B. Endocervical Material, Removal: Predominantly mucoinflammatory debris. Scant specimen with rare strips of endocervical epithelium and squamous cells with degenerative atypia/poor preservation artifact and features of atrophy. No definite evidence of significant cytologic atypia or malignancy. . C. Endometrium, Curettage: Predominantly mucoinflammatory debris. Rare strips and detached cells of likely endometrial origin with secretory and degenerative change and poor preservation artifact. No definite evidence of significant cytologic atypia or malignancy. . D. Ectocervix, Biopsy: Polypoid denuded benign cervical mucosa with actively inflamed granulation tissue and evidence of prior hemorrhage. A strip of benign squamous epithelium with reactive changes. . COMMENT: A. The findings likely represent a hyalinized and calcified leiomyoma. MRV 02/25/2022 1514 Local . 01 Electronically signed: . Tiki Jackson MD, Pathologist NPI- [id number] . 01 Gross description: . Part A: CERVICAL MASS: Received in formalin is 1 fragment(s) of lowe, soft tissue measuring 0.4 x 0.4 x 0.4 cm submitted entirely in 1 cassette(s) Part B: ENDOCERVICAL MATERIAL: Received in formalin are minute fragments of mucoid and hemorrhagic material measuring 2.8 x 2.8 x 0.2 cm in aggregate. Submitted in toto in 2 cassettes. Part C: ENDOMETRIAL CURETTAGE: Received in formalin are minute fragments of mucoid and hemorrhagic material measuring 2.5 x 1.2 x 0.1 cm in aggregate. Submitted in toto in 1 cassette. Part D: ECTOCERVICAL BIOPSY: Received in formalin is 1 fragment(s) of lowe, soft tissue measuring 0.8 x 0.3 x 0.3 cm submitted entirely in 1 cassette(s) /CPE 02/23/2022 0719 Local . 01 Pathologist provided ICD-10: N88.8 . 01 CPT . 559225, 747943, 236194, 612414 Specimen Comment: A courtesy copy of this report has been sent to [phone] Performed at: 01 [facility] [address] [place] [address], [place], [place] [id number] MD José Ruano MD Phone: [phone]
[2022-02-21] MEDS: LACTATED RINGERS 1,000 ML 100 ML IV (11:05)
--- NOTE | 2022-02-21 11:11 | P.HP_ITS ---
History of Present Illness History of Present Illness Date Patient Seen: 02/21/22 Time Patient Seen: 11:11 Chief complaint: Fractional D&C w/Hysteroscopy Narrative: Patient is a 77-year-old 1 para 1 with a history of anal cancer who had an ultrasound which showed calcifications in the endometrium as well as a possible solid mass in the cervix. An endometrial biopsy was negative. Patient presents today for a diagnostic hysteroscopy with for possible fr actional D&C or directed biopsies. Patient History Medical History (Updated 02/17/22 @ 14:47 by Maryjane Crocker RN) CKD stage G3b/A3, GFR 30-44 and albumin creatinine ratio >300 mg/g Facet arthropathy, lumbar FSGS (focal segmental glomerulosclerosis) Hayfever (1979) Hepatitis C (1991) History of fractured pelvis (2006) History of pelvic fracture Hypothyroidism (1966) Recurrent sinusitis (1979) Sacral dysfunction Tinnitus (1991) Surgical History (Updated 02/17/22 @ 14:48 by Maryjane Crocker RN) Anesthesia History of cosmetic surgery (1981) History of facial surgery (1979) History of liver biopsy (1993) History of surgery (12/29/20) History of thyroidectomy (1968) Status post left foot surgery (2008) Status post tubal ligation (1975) Family & Social History Family History Sister Cancer Ovarian cancer Sister Age: 72 Breast cancer Brother Astrocytoma brain tumor Father Lung cancer Prostate cancer Grandfather No problems noted. Grandmother No problems noted. Mother Parkinson's disease Grandfather No problems noted. Social History: household members none lives independently Yes caregiver/support person No Tobacco & Substance use: Smoking Status Never smoker alcohol intake current alcohol intake frequency 0-2 drinks per day Substance Use Type marijuana Meds Home Medications and Allergies Home Medications Medication Instructions Recorded Confirmed Type Natural Vitamin E 400 units PO DAILY 04/14/21 02/21/22 History ascorbic acid (vitamin C) 1,000 mg 1 cap PO DAILY 04/14/21 02/21/22 History capsule,extended release biotin 10,000 mcg capsule 10,000 mcg PO DAILY 04/14/21 02/21/22 History cholecalciferol (vitamin D3) 125 5,000 unit PO DAILY 04/14/21 02/21/22 History mcg (5,000 unit) tablet (Vitamin D3) loratadine 10 mg tablet 10 mg PO 4XW 04/14/21 02/21/22 History lutein 20 mg capsule 45 mg PO DAILY 04/14/21 02/21/22 History milk thistle 500 mg capsule 500 mg PO DAILY 04/14/21 02/21/22 History selenium 200 mcg tablet 200 mcg PO DAILY 04/14/21 02/21/22 History Lactobacillus acidophilus and 1 cap PO DAILY 04/15/21 02/17/22 History rhamnosus 15 billion cell capsule (Probiotic) coQ10 (ubiquinol) 100 mg capsule 100 mg PO DAILY 04/15/21 02/21/22 History lutein 25 mg-zeaxanthin 5 mg 1 cap PO DAILY 04/15/21 02/21/22 History capsule zinc 22 mg tablet 22 mg PO DAILY 04/15/21 02/21/22 History estradiol 0.05 mg/24 hr weekly See Rx Instructions .Route 08/31/21 02/21/22 Rx transdermal patch .COMPLEX #12 patches eflornithine 13.9 % topical cream 1 applic topical BID #45 grams 11/15/21 02/21/22 Rx (Vaniqa) losartan 25 mg tablet 12.5 mg PO DAILY 11/24/21 02/21/22 History torsemide 10 mg tablet 10 mg PO DAILY 11/24/21 02/21/22 History medroxyprogesterone 2.5 mg tablet See Rx Instructions .Route 11/25/21 02/21/22 Rx .COMPLEX #90 tabs fluticasone propionate 50 See Rx Instructions .Route 02/08/22 02/21/22 Rx mcg/actuation nasal .COMPLEX #48 grams spray,suspension levothyroxine 88 mcg tablet See Rx Instructions .Route 02/08/22 02/21/22 Rx (Synthroid) .COMPLEX #90 tabs Allergies Allergy/AdvReac Type Severity Reaction Status Date / Time No Known Allergies Allergy Verified 02/21/22 10:56 Exam Vital Signs (past 8 hours): - 02/21/22 10:37 Temperature 97.2 F L Pulse Rate 69 Respiratory Rate 18 Blood Pressure 127/65 Pulse Oximetry 100 Oxygen Delivery Method Room Air Oxygen Delivery Method Room Air Narrative Exam Narrative: HEENT: No thyromegaly, no anterior cervical or supraclavicular lymphadenopathy. Lungs:Clear to auscultation bilaterally, no wheezes. Cardiovascular: Regular rate and rhythm, no murmurs, rubs, or gallops. Abdomen: Well-healed scars. No hepatosplenomegaly. No masses palpable. External genitalia: Normal Vagina: Normal Cervix: Normal Bimanual exam: 6 Week size uterus. Mobile. Extremities: No edema Assessment & Plan Assessment & Plan narrative: Assessment: 77-year-old 1 para 1 with calcifications in the endometrium and a possible solid mass in the cervix History of anal cancer Plan: Diagnostic hysteroscopy with possible fractional D&C or directed biopsies The risks, benefits, and alternatives to the procedure were explained to the patient. The risks including bleeding, infection, and uterine perforation. She understands these risks and agrees to proceed. A full par Q was held and consent form was signed. COVID-19 COVID-19 status: Negative Result date/Date tested (Pos, Neg/Pending): 02/21/22 Time Spent With Patient Time with patient: less than 30 minutes Critical Care time: I spent a total of [] minutes of critical care time on this patient's care today; this time is exclusive of procedural time.
--- NOTE | 2022-02-21 11:14 | PM.PREOP ---
Pre-operative Note COVID-19 COVID-19 status: Negative Result date/Date tested (Pos, Neg/Pending): 02/21/22 Criteria for continued procedure: Non-surgical alternatives not available or appropriate per current SOC Interval Note History & Physical reviewed/Exam performed by Physician: Yes Changes to H&P: No H&P completed within 30 days and has changed as indicated here:: 02/21/22
--- NOTE | 2022-02-21 11:44 | SUR.OPER ---
Lithotomy on padded OR bed, head on pillow, arms secured on padded arm boards at <90 degrees abduction. Legs secured in padded yellow fins stirrups.
--- NOTE | 2022-02-21 12:22 | PM.GYNOP.1 ---
Operative Date/Time/Diagnoses Date of procedure: 02/21/22 Time of procedure: 12:22 Pre-op diagnosis: H/O anal cancer Mass in cervix on CT scan Calcifications in the endometrium on ultrasound Post-op diagnosis: same Procedure & Clinicians Procedure: Procedures Operation Date: 02/21/22 11:30 Actual Procedure Side Surgeon p Ester D&C Hysteroscopy Qi Monroy MD Indications: Mass in cervix on CT History of anal cancer Surgeon: Qi Monroy Anesthesia Type: General (LMA) Operative Notes Findings: Six week size uterus Mucoid material and the cervix Erythematous area on the ectocervix Thin endometrium Both fallopian tube ostia observed Closure Type: not applicable Specimen(s): endometrial curettings and other (Debris in cervix, endocervical curettage, biopsy of the ectocervix) Estimated blood loss (mL): 5 Blood products transfused: none Procedure in detail: After informed consent was obtained, the patient was taken to the operating room where she was placed in the dorsal supine position. After adequate LMA general anesthesia was achieved, she was placed in the dorsal lithotomy position, and prepped and draped in the usual sterile fashion. A time-out was performed. A bivalve speculum was placed into the vagina and the anterior lip of the cervix was grasped with a single-tooth tenaculum. There is an erythematous area at 2:00 a.m. on the ectocervix. The cervical os was sequentially dilated until the hysteroscope could pass easily into the endometrial cavity. Initial inspection with the hysteroscope revealed thin endometrium. The hysteroscope was removed. Upon removing the hysteroscope there was a large amount of material from the endocervical canal. This was sent to pathology. Endometrial curettings were obtained. Endocervical curettings were obtained. A biopsy of the ectocervical lesion was taken. Monsel's was applied for hemostasis. The single-tooth tenaculum was removed from the anterior lip of the cervix. The bivalve speculum was removed from the vagina. Sponge, lap, and instrument counts were correct x2. The patient tolerated the procedure well, and was taken to PACU in stable condition. Complications: none Post-operative Condition: stable Disposition: PACU Plan for aftercare: Home after recovery
--- NOTE | 2022-02-21 13:40 | SUR.PHASEII ---
pt to be discharged with her friend. No complaiints voiced. No distress noted. Pt denies any pain. Pt states she feels fine.
== END 2022-02-21 13:41 | disposition home or self-care (01) ==
PROVIDERS: PCP Family Medicine; Referring Provider Obstetrics & Gynecology; Visit Provider Obstetrics & Gynecology
PROC: 0UDB8ZZ Extraction of Endometrium, Via Natural or Artificial Opening Endoscopic (ICD-10-PCS; CPT 58558; principal; 2022-02-21 11:30)
DX: N88.8 Other specified noninflammatory disorders of cervix uteri (principal); R93.89 Abnormal findings on diagnostic imaging of other specified body structures; Z20.822 Contact with and (suspected) exposure to COVID-19; Z85.048 Personal history of other malignant neoplasm of rectum, rectosigmoid junction, and anus
CPT/HCPCS: 58558; 87635; C9803; J1100; J2405; J2704; J3010

== ENCOUNTER → 2022-03-10 15:05 | Outpatient (CLI) | payer MEDICARE, OTHER, SELFPAY ==
[2022-03-10 16:13] LABS: Add Manual Diff / Slide Review NO; Alanine Aminotransferase 23 IU/L (<35); Albumin 3.7 g/dL (3.5-5.0); Albumin Globulin Ratio 1.2 (1.0-2.8); Alkaline Phosphatase 78 U/L (38-126); Aspartate Aminotransferase 20 IU/L (14-36); Basophils Absolute Auto 0 /uL (0-100); Basophils Percent Auto 0.8 % (0-2); Bilirubin Total 0.3 mg/dL (0.2-1.3); Bilirubin Unconjugated 0.3 mg/dL (0.0-1.1); Eosinophils Absolute Auto 100 /uL (0-450); Eosinophils Percent Auto 2.2 % (2-4); HEMOLYSIS < 15 (0-50); Hematocrit 36.8 % (36-46); Hemoglobin 12.5 g/dL (12.0-16.0); Lymphocytes Absolute Auto 700 /uL (1100-4500); Lymphocytes Percent Auto 17.5 % (25-40); Mean Corpuscular HGB Conc 33.9 % (30-36); Mean Corpuscular Hemoglobin 33.3 PG (26-34); Mean Corpuscular Volume 98.4 fL (80-100); Monocytes Absolute Auto 300 /uL (0-900); Neutrophils Absolute Auto 2600 /uL (1500-7000); Neutrophils Percent Auto 70.5 % (50-75); Platelet Count 215 X10^3/uL (150-400); Red Blood Cell Count 3.74 X10^6/uL (4.0-5.2); Red Cell Distribution Width 13.5 % (11.6-14.8); Total Protein 6.7 g/dL (6.3-8.2); White Blood Cell Count 3.7 X10^3/uL (4.5-11.0)
[2022-03-10 17:02] LABS: Creatinine Urine Random 88.6 mg/dL; Protein (Total) Urine Random 266 mg/dL (0-12)
== END ==
PROVIDERS: PCP Family Medicine; Referring Provider Internal Medicine Nephrology; Visit Provider Internal Medicine Nephrology
DX: N05.1 Unspecified nephritic syndrome with focal and segmental glomerular lesions (principal)
CPT/HCPCS: 36415; 80076; 82570; 84156; 85025

== ENCOUNTER → 2022-03-11 15:35 | Outpatient (CLI) | payer MEDICARE, OTHER, SELFPAY | PROVIDERS: PCP Family Medicine; Referring Provider Internal Medicine Nephrology; Visit Provider Internal Medicine Nephrology | DX: N04.9 Nephrotic syndrome with unspecified morphologic changes (principal) | CPT/HCPCS: 84156; 84166; 86335 ==

== ENCOUNTER → 2022-04-28 10:23 | Outpatient (CLI) | payer MEDICARE, OTHER, SELFPAY ==
[2022-04-28 11:37] LABS: Add Manual Diff / Slide Review NO; Basophils Absolute Auto 0 /uL (0-100); Basophils Percent Auto 0.9 % (0-2); Eosinophils Absolute Auto 100 /uL (0-450); Eosinophils Percent Auto 1.2 % (2-4); Hematocrit 37.8 % (36-46); Hemoglobin 12.7 g/dL (12.0-16.0); Lymphocytes Absolute Auto 800 /uL (1100-4500); Lymphocytes Percent Auto 17.7 % (25-40); Mean Corpuscular HGB Conc 33.5 % (30-36); Mean Corpuscular Hemoglobin 33.1 PG (26-34); Mean Corpuscular Volume 98.7 fL (80-100); Monocytes Absolute Auto 300 /uL (0-900); Neutrophils Absolute Auto 3300 /uL (1500-7000); Neutrophils Percent Auto 73.2 % (50-75); Platelet Count 157 X10^3/uL (150-400); Red Blood Cell Count 3.83 X10^6/uL (4.0-5.2); White Blood Cell Count 4.6 X10^3/uL (4.5-11.0)
[2022-04-28 12:35] LABS: Creatinine Urine Random 90.7 mg/dL; Protein (Total) Urine Random 138 mg/dL (0-12); Protein Creatinine Ratio Urine 1.52 GRAM/24H
[2022-04-28 12:36] LABS: BUN Creatinine Ratio 16.4 (6-22); Blood Urea Nitrogen 24 mg/dL (7-17); Calcium 8.6 mg/dL (8.4-10.2); Carbon Dioxide 28 mmol/L (22-32); Chloride 104 mmol/L (98-107); Estimated Glomerular Filt Rate 37 mL/min (>60); Glucose 110 mg/dL (80-110); HEMOLYSIS < 15 (0-50); Potassium 4.9 mmol/L (3.4-5.1); Sodium 138 mmol/L (137-145)
[2022-04-29 17:16] LABS: Albumin 3.8 g/dL (3.5-5.0)
== END ==
PROVIDERS: PCP Family Medicine; Referring Provider Internal Medicine Nephrology; Visit Provider Internal Medicine Nephrology
DX: N18.32 Chronic kidney disease, stage 3b (principal)
CPT/HCPCS: 36415; 80069; 82570; 84156; 85025

== ENCOUNTER → 2022-07-04 12:18 | Outpatient (CLI) | payer MEDICARE, OTHER, SELFPAY ==
[2022-07-04 12:47] LABS: Add Manual Diff / Slide Review NO; Basophils Absolute Auto 0 /uL (0-100); Basophils Percent Auto 0.9 % (0-2); Eosinophils Absolute Auto 100 /uL (0-450); Eosinophils Percent Auto 1.5 % (2-4); Hematocrit 40.1 % (36-46); Hemoglobin 13.6 g/dL (12.0-16.0); Lymphocytes Absolute Auto 800 /uL (1100-4500); Lymphocytes Percent Auto 15.9 % (25-40); Mean Corpuscular Hemoglobin 33.8 PG (26-34); Mean Corpuscular Volume 99.4 fL (80-100); Monocytes Absolute Auto 300 /uL (0-900); Neutrophils Absolute Auto 3700 /uL (1500-7000); Neutrophils Percent Auto 74.7 % (50-75); Platelet Count 174 X10^3/uL (150-400); Red Blood Cell Count 4.03 X10^6/uL (4.0-5.2); White Blood Cell Count 4.9 X10^3/uL (4.5-11.0)
[2022-07-04 13:01] LABS: BUN Creatinine Ratio 15.1 (6-22); Blood Urea Nitrogen 21 mg/dL (7-17); Calcium 8.3 mg/dL (8.4-10.2); Carbon Dioxide 28 mmol/L (22-32); Chloride 104 mmol/L (98-107); Estimated Glomerular Filt Rate 39 mL/min (>60); Glucose 94 mg/dL (80-110); HEMOLYSIS 19 (0-50); Phosphorous 3.3 mg/dL (2.8-4.1); Potassium 3.8 mmol/L (3.4-5.1); Sodium 138 mmol/L (137-145)
[2022-07-04 16:43] LABS: Protein (Total) Urine Random 116 mg/dL (0-12); Protein Creatinine Ratio Urine 3.62 GRAM/24H
== END ==
PROVIDERS: PCP Family Medicine; Referring Provider Internal Medicine Nephrology; Visit Provider Internal Medicine Nephrology
DX: N18.32 Chronic kidney disease, stage 3b (principal)
CPT/HCPCS: 36415; 80069; 82570; 84156; 85025

== ENCOUNTER → 2022-09-30 11:59 | Outpatient (CLI) | payer MEDICARE, OTHER, SELFPAY ==
[2022-09-30 13:43] LABS: Alanine Aminotransferase 15 IU/L (<35); Albumin 3.8 g/dL (3.5-5.0); Albumin Globulin Ratio 1.7 (1.0-2.8); Alkaline Phosphatase 67 U/L (38-126); Aspartate Aminotransferase 16 IU/L (14-36); BUN Creatinine Ratio 17.4 (6-22); Bilirubin Total 0.6 mg/dL (0.2-1.3); Blood Urea Nitrogen 25 mg/dL (7-17); Calcium 8.3 mg/dL (8.4-10.2); Carbon Dioxide 30 mmol/L (22-32); Chloride 94 mmol/L (98-107); Estimated Glomerular Filt Rate 37 mL/min (>60); Globulin 2.3 g/dL (1.7-4.1); Glucose 99 mg/dL (80-110); HEMOLYSIS < 15 (0-50); Potassium 3.9 mmol/L (3.4-5.1); Sodium 132 mmol/L (137-145); Total Protein 6.1 g/dL (6.3-8.2)
[2022-09-30 14:07] LABS: Thyroid Stimulating Hormone 1.91 uIU/mL (0.47-4.68)
[2022-09-30 15:03] LABS: Creatinine Urine Random 42.4 mg/dL; Protein (Total) Urine Random 49 mg/dL (0-12); Protein Creatinine Ratio Urine 1.15 GRAM/24H
== END ==
PROVIDERS: PCP Family Medicine; Referring Provider Internal Medicine Nephrology; Visit Provider Internal Medicine Nephrology
DX: E03.9 Hypothyroidism, unspecified (principal); N18.32 Chronic kidney disease, stage 3b
CPT/HCPCS: 36415; 80053; 82570; 84156; 84443

== ENCOUNTER → 2022-11-04 11:13 | Outpatient (CLI) | payer MEDICARE, OTHER, SELFPAY ==
[2022-11-04 12:40] LABS: Alanine Aminotransferase 15 IU/L (<35); Albumin 4.1 g/dL (3.5-5.0); Albumin Globulin Ratio 1.3 (1.0-2.8); Alkaline Phosphatase 70 U/L (38-126); Aspartate Aminotransferase 18 IU/L (14-36); BUN Creatinine Ratio 13.9 (6-22); Bilirubin Total 0.6 mg/dL (0.2-1.3); Blood Urea Nitrogen 23 mg/dL (7-17); Calcium 8.8 mg/dL (8.4-10.2); Carbon Dioxide 32 mmol/L (22-32); Chloride 94 mmol/L (98-107); Estimated Glomerular Filt Rate 31 mL/min (>60); Globulin 3.2 g/dL (1.7-4.1); Glucose 129 mg/dL (80-110); HEMOLYSIS < 15 (0-50); Potassium 3.3 mmol/L (3.4-5.1); Sodium 133 mmol/L (137-145); Total Protein 7.3 g/dL (6.3-8.2)
[2022-11-04 13:42] LABS: Creatinine Urine Random 41.5 mg/dL; Protein (Total) Urine Random 78 mg/dL (0-12); Protein Creatinine Ratio Urine 1.87 GRAM/24H
== END ==
PROVIDERS: PCP Family Medicine; Referring Provider Internal Medicine Nephrology; Visit Provider Internal Medicine Nephrology
DX: N18.32 Chronic kidney disease, stage 3b (principal)
CPT/HCPCS: 36415; 80053; 82570; 84156

== ENCOUNTER → 2022-12-15 13:46 | Outpatient (CLI) | payer MEDICARE, OTHER, SELFPAY ==
[2022-12-15 16:00] LABS: BUN Creatinine Ratio 17.9 (6-22); Blood Urea Nitrogen 26 mg/dL (7-17); Calcium 8.6 mg/dL (8.4-10.2); Carbon Dioxide 30 mmol/L (22-32); Chloride 97 mmol/L (98-107); Estimated Glomerular Filt Rate 37 mL/min (>60); Glucose 90 mg/dL (80-110); HEMOLYSIS < 15 (0-50); Potassium 3.8 mmol/L (3.4-5.1); Sodium 132 mmol/L (137-145)
[2022-12-15 16:25] LABS: Creatinine Urine Random 58.7 mg/dL; Protein (Total) Urine Random 63 mg/dL (0-12); Protein Creatinine Ratio Urine 1.07 GRAM/24H
[2022-12-15 16:29] LABS: Microalbumi Creatinin Ratio Ur 323.6 ug/mg CR (<30)
[2022-12-15 16:54] LABS: Microalbumin Urine Random 28.2 mg/dL (0-1.6)
== END ==
PROVIDERS: PCP Family Medicine; Referring Provider Internal Medicine Nephrology; Visit Provider Internal Medicine Nephrology
DX: N04.1 Nephrotic syndrome with focal and segmental glomerular lesions (principal)
CPT/HCPCS: 36415; 80048; 82043; 82570; 84156

== ENCOUNTER → 2023-03-09 12:04 | Outpatient (CLI) | payer MEDICARE, OTHER, SELFPAY ==
[2023-03-09 12:48] LABS: Add Manual Diff / Slide Review NO; Basophils Absolute Auto 100 /uL (0-100); Basophils Percent Auto 0.7 % (0-2); Eosinophils Absolute Auto 600 /uL (0-450); Eosinophils Percent Auto 8.3 % (2-4); Lymphocytes Absolute Auto 900 /uL (1100-4500); Lymphocytes Percent Auto 12.8 % (25-40); Mean Corpuscular HGB Conc 34.1 % (30-36); Mean Corpuscular Hemoglobin 33.3 PG (26-34); Mean Corpuscular Volume 97.7 fL (80-100); Monocytes Absolute Auto 400 /uL (0-900); Monocytes Percent Auto 5.8 % (3-14); Neutrophils Absolute Auto 5200 /uL (1500-7000); Neutrophils Percent Auto 72.4 % (50-75); Platelet Count 232 X10^3/uL (150-400); Red Cell Distribution Width 14.5 % (11.6-14.8); White Blood Cell Count 7.2 X10^3/uL (4.5-11.0)
[2023-03-09 12:56] LABS: Appearance Urine UA CLEAR; Bilirubin Urine UA NEGATIVE (NEGATIVE); Color Urine UA YELLOW; Glucose Urine UA NEGATIVE (Negative); Ketones Urine UA NEGATIVE (NEGATIVE); Leukocyte Esterase Urine UA TRACE (NEGATIVE); Nitrite Urine UA NEGATIVE (Negative); Occult Blood Urine UA NEGATIVE (Negative); Protein Urine UA 1+ (Negative); Urobilinogen Urine UA 0.2 E.U./dL (0.2)
[2023-03-09 13:04] LABS: Bacteria Urine None Seen; RBC Urine None Seen (0-5/HPF); Squamous Epithelial Cell Urine 1-5 /HPF (0-5/HPF); WBC Urine 5-10/HPF (0-5/HPF)
[2023-03-09 13:05] LABS: Culture Indicated Urine Specimen Cultured
[2023-03-09 13:06] LABS: HEMOLYSIS 17 (0-50); Iron 155 ug/dL (37-170)
[2023-03-09 13:13] LABS: Albumin 4.4 g/dL (3.5-5.0); BUN Creatinine Ratio 21.2 (6-22); Blood Urea Nitrogen 33 mg/dL (7-17); Calcium 9.6 mg/dL (8.4-10.2); Carbon Dioxide 28 mmol/L (22-32); Chloride 101 mmol/L (98-107); Estimated Glomerular Filt Rate 34 mL/min (>60); Glucose 96 mg/dL (80-110); HEMOLYSIS < 15 (0-50); Phosphorous 4.2 mg/dL (2.8-4.1); Potassium 3.8 mmol/L (3.4-5.1); Sodium 137 mmol/L (137-145)
[2023-03-09 13:17] LABS: Percent Iron Saturation 52 % (15-50); Total Iron Binding Capacity 296 ug/dL (265-497); Transferrin 253 mg/dL (206-381)
[2023-03-09 13:43] LABS: Ferritin 100 ng/mL (11-264)
[2023-03-09 16:24] LABS: Creatinine Urine Random 71.4 mg/dL; Protein (Total) Urine Random 64 mg/dL (0-12); Protein Creatinine Ratio Urine 0.89 GRAM/24H
[2023-03-09 16:39] LABS: Vitamin D 25 Hydroxy (D3) 110 ng/mL (30.0-100.0)
[2023-03-09 16:58] LABS: Microalbumi Creatinin Ratio Ur 414.5 ug/mg CR (<30); Microalbumin Urine Random 29.6 mg/dL (0-1.6)
[2023-03-11 06:30] LABS: Parathyroid Hormone Int 22 pg/mL (15-65)
== END ==
PROVIDERS: Family Provider Family Medicine; PCP Family Medicine; Referring Provider Internal Medicine Nephrology; Visit Provider Internal Medicine Nephrology
DX: C21.0 Malignant neoplasm of anus, unspecified (principal); N04.1 Nephrotic syndrome with focal and segmental glomerular lesions; N18.32 Chronic kidney disease, stage 3b
CPT/HCPCS: 36415; 80069; 81001; 82043; 82306; 82570; 82728; 83540; 83550; 83970; 84156; 85025; 87086; 99212

== ENCOUNTER → 2023-04-18 12:51 | Outpatient (CLI) | payer MEDICARE, OTHER, SELFPAY ==
--- NOTE | 2023-04-18 12:54 | DI.CT.S_ITS ---
PROCEDURE: CT CHEST ABD PEL WO CON INDICATIONS: CANCER OF ANAL CANAL TECHNIQUE: After the administration of oral contrast, 5 mm thick sections acquired from the lung apices to the symphysis pubis. 5 mm thick coronal and sagittal reformats acquired, with additional 7 mm coronal MIP reformats through the lungs. For radiation dose reduction, the following was used: automated exposure control, adjustment of mA and/or kV according to patient size. COMPARISON: [facility], CT, CT ABDOMEN PELVIS WITH CONTRAST, 06/04/2021, 12:37. CT, CT CHEST W CON, 12/11/2020, 11:08. FINDINGS: Image quality: Diagnostic. CHEST: Lower Neck: No enlarged lymph nodes. Thyroid: No thyroid nodules which require sonographic follow up, per consensus guidelines. Axillae: No enlarged lymph nodes. Chest Wall: Unremarkable. Bones: Unremarkable. Lungs and Pleura: Several subcentimeter nodules is noted in the inferior most aspect of the right lower lobe series 3, image 257. The largest measures approximately 5 mm. Unchanged since 2020 Heart: Heart size is normal. No pericardial effusion. Thoracic Vessels: The aorta and pulmonary arteries demonstrate normal size. Mediastinum and Hortencia: No enlarged lymph nodes. Esophagus: No wall thickening. Mild hiatal hernia. ABDOMEN: Liver: No solid mass. Gallbladder: No radiopaque gallstones or wall thickening. Biliary ducts: No biliary dilation. Pancreas: No ductal dilation. Spleen: Size is within normal limits. Adrenal Glands: No adrenal nodules. Kidneys and Ureters: No hydronephrosis. Kidneys are markedly atrophic bilaterally simple cysts are again noted. Stomach and Bowel: No obstruction. At the level of the rectum there is asymmetric posterior wall thickening similar versus slightly more prominent when compared to prior exam. Scattered diverticular present without inflammatory change. Peritoneum: No abnormal intraperitoneal fluid. No free air. Ventral Wall: No hernia. Abdominal Nodes: No retroperitoneal or mesenteric adenopathy by size criteria. Vessels: Aorta and inferior vena cava are normal in size. PELVIS: Pelvic Organs: Uterine fibroids. Bladder: Unremarkable. Pelvic Nodes: No enlarged lymph nodes. Miscellaneous: No inguinal hernias are seen. Bones: Unremarkable. IMPRESSION: Asymmetric posterior wall thickening the rectum similar versus slightly more prominent when compared to prior exam. Recommend correlation to area of known disease. No distant metastatic disease. Dictated by: Risa Cooper M.D. on 04/18/2023 at 17:46 Approved by: Risa Cooper M.D. on 04/18/2023 at 17:50
== END ==
PROVIDERS: Family Provider Family Medicine; PCP Family Medicine; Referring Provider Radiology Radiation Oncology; Visit Provider Radiology Radiation Oncology
DX: C21.1 Malignant neoplasm of anal canal (principal)
CPT/HCPCS: 71250; 74176

== ENCOUNTER → 2023-07-06 12:50 | Outpatient (CLI) | payer MEDICARE, OTHER, SELFPAY ==
[2023-07-06 14:51] LABS: Appearance Urine UA CLEAR; Bilirubin Urine UA NEGATIVE (NEGATIVE); Color Urine UA YELLOW; Glucose Urine UA NEGATIVE (Negative); Ketones Urine UA NEGATIVE (NEGATIVE); Leukocyte Esterase Urine UA 1+ (NEGATIVE); Nitrite Urine UA NEGATIVE (Negative); Occult Blood Urine UA NEGATIVE (Negative); Protein Urine UA TRACE (Negative); Urobilinogen Urine UA 0.2 E.U./dL (0.2)
[2023-07-06 14:59] LABS: Blood Urea Nitrogen 35 mg/dL (7-17); Carbon Dioxide 27 mmol/L (22-32); Chloride 104 mmol/L (98-107); Estimated Glomerular Filt Rate 33 mL/min (>60); Glucose 91 mg/dL (80-110); HEMOLYSIS < 15 (0-50); Magnesium 2.6 mg/dL (1.6-2.3); Phosphorous 3.3 mg/dL (2.8-4.1); Potassium 4.3 mmol/L (3.4-5.1); Sodium 136 mmol/L (137-145)
[2023-07-06 15:00] LABS: Bacteria Urine None Seen; Culture Indicated Urine Specimen Cultured; RBC Urine 0-1/HPF (0-5/HPF); Squamous Epithelial Cell Urine 0-1 /HPF (0-5/HPF); Urine Volume 10mL (spun); WBC Urine None Seen (0-5/HPF)
[2023-07-06 15:08] LABS: Vitamin D 25 Hydroxy (D3) 106 ng/mL (30.0-100.0)
[2023-07-06 15:24] LABS: Creatinine Urine Random 62.5 mg/dL; Protein (Total) Urine Random 45 mg/dL (0-12); Protein Creatinine Ratio Urine 0.72 GRAM/24H
[2023-07-06 15:28] LABS: Microalbumi Creatinin Ratio Ur 251.2 ug/mg CR (<30); Microalbumin Urine Random 15.7 mg/dL (0-1.6)
[2023-07-06 15:30] LABS: Ferritin 74 ng/mL (11-264)
[2023-07-06 20:00] LABS: HEMOLYSIS < 15 (0-50); Iron 104 ug/dL (37-170)
[2023-07-06 20:13] LABS: Percent Iron Saturation 35 % (15-50); Total Iron Binding Capacity 299 ug/dL (265-497); Transferrin 245 mg/dL (206-381)
[2023-07-08 09:09] LABS: Parathyroid Hormone Int 27 pg/mL (15-65)
== END ==
PROVIDERS: Family Provider Family Medicine; PCP Family Medicine; Referring Provider Internal Medicine Nephrology; Visit Provider Internal Medicine Nephrology
DX: N04.1 Nephrotic syndrome with focal and segmental glomerular lesions (principal); N18.32 Chronic kidney disease, stage 3b; E83.42 Hypomagnesemia
CPT/HCPCS: 36415; 80069; 81001; 82043; 82306; 82570; 82728; 83540; 83550; 83735; 83970; 84156; 87086

== ENCOUNTER 2023-07-13 12:00 | Outpatient (RCR) | payer MEDICARE, OTHER, SELFPAY ==
--- NOTE | 2023-04-18 17:32 | PT.OIE ---
Current Diagnoses Unsteadiness on feet (04/18/23) Dizziness and giddiness (04/18/23) Past Medical History (Last Reviewed 03/19/23 @ 12:02 by Edmar Ritter MD) CKD stage G3b/A3, GFR 30-44 and albumin creatinine ratio >300 mg/g Facet arthropathy, lumbar FSGS (focal segmental glomerulosclerosis) Hayfever (1979) Hepatitis C (1991) History of fractured pelvis (2006) History of pelvic fracture Hypothyroidism (1966) Recurrent sinusitis (1979) Sacral dysfunction Tinnitus (1991) Past Surgical History (Last Reviewed 03/19/23 @ 12:02 by Edmar Ritter MD) Anesthesia History of cosmetic surgery (1981) History of facial surgery (1979) History of liver biopsy (1993) History of surgery (12/29/20) History of thyroidectomy (1968) Status post left foot surgery (2008) Status post tubal ligation (1975) Visit Care Team Role Provider Type Donna Toussaint MD Family Provider Physician Primary Care Provider Specialty: Family Practice Address: [address] [place] [address], [facility] Email: [email or web address] Shiraz Edmonds MD Attending Provider Non-Staff Referring Provider Specialty: Otolaryngology (ENT) Address: [address] [place] [address], [facility] Email: Physical Therapy Initial Evaluation PT-OP-A Visit Information Start: 04/18/23 14:12 Freq: Status: Active Protocol: Document 04/18/23 12:00 DCW (Rec: 04/18/23 14:23 [facility] [id number]) Out-Patient Physical Therapy Visit Information Visit Information Visit Type Initial Evaluation Visit Start Time 12:00 Visit Stop Time 12:45 Total Visit Minutes 45 Visit Number 1 Number of COREMAKER BENCH Visits 0 Evaluation Information Evaluation Date 04/18/23 PT-OP-B Current Condition Start: 04/18/23 14:12 Freq: Status: Active Protocol: Document 04/18/23 12:00 DCW (Rec: 04/18/23 14:23 [facility] [id number]) Current Condition History of Current Condition Onset Date Multi-year history Current Complaints Constant imbalance/instability , near falls History of Current Condition Pt is a 78 year old female presenting with a long- standing history of imbalance/ instability. Pt reports it constantly feels like I'm drunk or something. Notes feeling like there is constant pressure in her head, especially in her ears, but if she tried to pop them, she gets suddenly dizzy. Per patient, she underwent a VNG, which was fine. Was referred to an ear doctor at [facility], but was just then referred to vestibular therapy with minimal testing. Pt notes she is constantly putting her hands on tobias or furniture to stabilize herself . Has not had any falls, but is very, very careful at all times. Pt as diagnosed with anal cancer two years ago, and treated with chemo and radiation. At that time, she had to but her in a care facility secondary to aphasia and dementia, and has been very stressed about everything, which has also impacted her symptoms. 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 PT-OP-C Subjective Start: 04/18/23 14:12 Freq: Status: Active Protocol: Document 04/18/23 12:00 DCW (Rec: 04/18/23 14:23 DCW [id number]) Patient Questionnaires Dizziness Handicap Inventory DHI Score 8% DHI Functional Impairment 1 to 19% Impaired (Score 1-19) PT-OP-O Vestibular Start: 04/18/23 14:12 Freq: Status: Active Protocol: Document 04/18/23 12:00 DCW (Rec: 04/18/23 17:32 DCW [id number]) Vestibular Assessment Auditory Tests Bey Test Within normal limits Rinne Test Negative Air Conduction Results Equal Visual Testing Smooth Pursuits Horizontal WNL Smooth Pursuits Vertical WNL Saccades Horizontal WNL Saccades Vertical WNL Heave Test Positive Bilateral Thrust Head Positive Bilateral Convergence Test 41 cm DVA (Line Degradation) 2 Positional Testing Ken-Hallpike Negative Left,Negative Right Rolling Test Negative Left,Negative Right Vestibular Function Tests CTSIB Position 1 30 seconds Mild Sway CTSIB Position 2 30 seconds Mild Sway CTSIB Position 3 30 seconds Mild Sway CTSIB Position 4 30 seconds Mild Sway CTSIB Position 5 Fall Reaction CTSIB Position 6 Fall Reaction PT-OP-Q Treatments Start: 04/18/23 14:12 Freq: Status: Active Protocol: Document 04/18/23 12:00 DCW (Rec: 04/18/23 14:26 [facility] [id number]) Neuro Re-Education Treatment Vestibular Rehabilitation Corrective Saccades Details Eyes, then head Distance From Target Arm's length Speed As tolerated Position Seated X2 Viewing Details Head and target moving opposite directions Distance From Target Arm's length Speed As tolerated Position Seated X1 Viewing Details Static target with head turns Distance From Target Arm's length Speed As tolerated Position Seated VOR Retraining Details Head and target moving together Distance From Target Arm's length Speed As tolerated Position Seated PT-OP-T Assessment and Plan Start: 04/18/23 14:12 Freq: Status: Active Protocol: Document 04/18/23 12:00 DCW (Rec: 04/18/23 17:32 [facility] [id number]) Physical Therapy Assessment Rehab Potential Rehabilitation Potential Fair Evaluation Complexity Number of Personal Factors/Comorbidities 3 or More Number of Body Systems Impaired 3 Clinical Presentation at Evaluation Unstable Goals Three Impairment Pt experiences diplopia at 41 cm during convergence testing Longterm Goal (LTG) Pt to improve convergence testing by at least 16 cm to a distance of at worst 25 cm in order to improve ability for ocular tracking and decreased visual motion sensitivity. LTG Duration 06/17/23 Two Impairment Pt exhibits a fall reaction in CTSIB positions V and Electrical And Instrumentation Manager Goal (LTG) Pt to demonstrate ability to maintain CTSIB position V for at least 30 seconds with moderate sway or better in order to show improve vestibular function LTG Duration 06/17/23 One Impairment Pt does not have an appropriate home exercise program Short Term Goal (STG) Pt to be independent and compliant with an appropriate HEP STG Duration 05/19/23 Assessment Summary Assessment Pt exhibits decreased balance secondary to multi-factorial causes. 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 Pt struggles with convergence, noting diplopia at 41 cm, as well as difficulty with VOR challenges . Pt should benefit from skilled vestibular rehabilitation focusing on vestibular challenges, balance training, and oculomotor exercises. Physical Therapy Plan Frequency and Duration Frequency of Treatment 2x/Week Plan of Care Start Date 04/18/23 Plan of Care End Date 06/17/23 Therapeutic Interventions Therapeutic Interventions Balance Training,Coordination Training,Gait Training,Home Exercise Program,Neuromuscular Re-education,Patient/ Caregiver Education,Self-Care/ Home Management,Soft Tissue Mobilization,Therapeutic Activities,Therapeutic Exercises,Vestibular Rehabilitation Next Visit Focus/Plan Next Note Type Treatment Note Next Visit Plan Adaptation/habituation exercises, pencil push-ups, VOR retraining
--- NOTE | 2023-04-18 17:33 | PT.OPPOC ---
Physical, Occupational & Speech Therapy At [facility] Current Diagnoses Unsteadiness on feet (04/18/23) Dizziness and giddiness (04/18/23) Visit Care Team Role Provider Type Donna Toussaint MD Family Provider Physician Primary Care Provider Specialty: Family Practice Address: [facility] [place], [address] Email: [email or web address] Shiraz Edmonds MD Attending Provider Non-Staff Referring Provider Specialty: Otolaryngology (ENT) Address: [address] [place] [address], [place], [address] Email: Plan Of Care PT-OP-T Assessment and Plan Start: 04/18/23 14:12 Freq: Status: Active Protocol: Document 04/18/23 12:00 DCW (Rec: 04/18/23 17:32 DCW [id number]) Physical Therapy Assessment Rehab Potential Rehabilitation Potential Fair Evaluation Complexity Number of Personal Factors/Comorbidities 3 or More Number of Body Systems Impaired 3 Clinical Presentation at Evaluation Unstable Goals Three Impairment Pt experiences diplopia at 41 cm during convergence testing Senior Living Goal (LTG) Pt to improve convergence testing by at least 16 cm to a distance of at worst 25 cm in order to improve ability for ocular tracking and decreased visual motion sensitivity. LTG Duration 06/17/23 Two Impairment Pt exhibits a fall reaction in CTSIB positions V and Discotheque Dancer Goal (LTG) Pt to demonstrate ability to maintain CTSIB position V for at least 30 seconds with moderate sway or better in order to show improve vestibular function LTG Duration 06/17/23 One Impairment Pt does not have an appropriate home exercise program Short Term Goal (STG) Pt to be independent and compliant with an appropriate HEP STG Duration 05/19/23 Assessment Summary Assessment Pt exhibits decreased balance secondary to multi-factorial causes. 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 Pt struggles with convergence, noting diplopia at 41 cm, as well as difficulty with VOR challenges . Pt should benefit from skilled vestibular rehabilitation focusing on vestibular challenges, balance training, and oculomotor exercises. Physical Therapy Plan Frequency and Duration Frequency of Treatment 2x/Week Plan of Care Start Date 04/18/23 Plan of Care End Date 06/17/23 Therapeutic Interventions Therapeutic Interventions Balance Training,Coordination Training,Gait Training,Home Exercise Program,Neuromuscular Re-education,Patient/ Caregiver Education,Self-Care/ Home Management,Soft Tissue Mobilization,Therapeutic Activities,Therapeutic Exercises,Vestibular Rehabilitation Next Visit Focus/Plan Next Note Type Treatment Note Next Visit Plan Adaptation/habituation exercises, pencil push-ups, VOR retraining Plan of Care Dates Plan of Care Start Date 04/18/23 Plan of Care End Date 06/17/23 Electronically Signed by: Marquis Munoz, PT 04/18/23 6123 If you are in agreement with this Plan of Care, please return a signed and dated copy. I have reviewed this Plan of Care and certify that the skilled therapy services above are required to meet the patient?s needs. Physician Signature Date Printed Name and Credentials Clinical Instructor Signature Printed Name and Credentials
--- NOTE | 2023-04-21 12:44 | PT.OTN ---
Current Diagnoses Unsteadiness on feet (04/21/23) Dizziness and giddiness (04/21/23) Physical Therapy Treatment Note PT-OP-A Visit Information Start: 04/18/23 14:12 Freq: Status: Active Protocol: Document 04/21/23 12:00 DCW (Rec: 04/21/23 12:44 DCW [id number]) Out-Patient Physical Therapy Visit Information Visit Information Visit Type Treatment Note Visit Start Time 12:00 Visit Stop Time 12:45 Total Visit Minutes 45 Visit Number 2 Number of ESTABLISHMENT GUIDE Visits 0 Evaluation Information Evaluation Date 04/18/23 PT-OP-B Current Condition Start: 04/18/23 14:12 Freq: Status: Active Protocol: Document 04/18/23 12:00 DCW (Rec: 04/18/23 14:23 DCW [id number]) Current Condition History of Current Condition Onset Date Multi-year history Current Complaints Constant imbalance/instability , near falls History of Current Condition Pt is a 78 year old female presenting with a long- standing history of imbalance/ instability. Pt reports it constantly feels like I'm drunk or something. Notes feeling like there is constant pressure in her head, especially in her ears, but if she tried to pop them, she gets suddenly dizzy. Per patient, she underwent a VNG, which was fine. Was referred to an ear doctor at [facility], but was just then referred to vestibular therapy with minimal testing. Pt notes she is constantly putting her hands on tobias or furniture to stabilize herself . Has not had any falls, but is very, very careful at all times. Pt as diagnosed with anal cancer two years ago, and treated with chemo and radiation. At that time, she had to but her in a care facility secondary to aphasia and dementia, and has been very stressed about everything, which has also impacted her symptoms. 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 PT-OP-C Subjective Start: 04/18/23 14:12 Freq: Status: Active Protocol: Document 04/21/23 12:00 DCW (Rec: 04/21/23 12:44 DCW [id number]) OP-PT Subjective Patient Comments Patient Comments Has been doing HEP, admits she has a hard time with X2 PT-OP-O Vestibular Start: 04/18/23 14:12 Freq: Status: Active Protocol: Document 04/18/23 12:00 DCW (Rec: 04/18/23 17:32 DCW [id number]) Vestibular Assessment Auditory Tests Bey Test Within normal limits Rinne Test Negative Air Conduction Results Equal Visual Testing Smooth Pursuits Horizontal WNL Smooth Pursuits Vertical WNL Saccades Horizontal WNL Saccades Vertical WNL Heave Test Positive Bilateral Thrust Head Positive Bilateral Convergence Test 41 cm DVA (Line Degradation) 2 Positional Testing Ken-Hallpike Negative Left,Negative Right Rolling Test Negative Left,Negative Right Vestibular Function Tests CTSIB Position 1 30 seconds Mild Sway CTSIB Position 2 30 seconds Mild Sway CTSIB Position 3 30 seconds Mild Sway CTSIB Position 4 30 seconds Mild Sway CTSIB Position 5 Fall Reaction CTSIB Position 6 Fall Reaction PT-OP-Q Treatments Start: 04/18/23 14:12 Freq: Status: Active Protocol: Document 04/21/23 12:00 DCW (Rec: 04/21/23 12:44 DCW [id number]) Therapeutic Exercises Standing Exercises Hip Extension Standing Exercise Name Hip Extension Side bilateral Resistance Green Other Exercises Resisted Ambulation Other Exercise Name Resisted Side-stepping Resistance Green Neuro Re-Education Treatment Balance Activities Dynamic Gait Details in Hallway Comments Heat turns (100 bpm) Tandem Gait Retro Gait Foam Comments X1, EO/EC Vestibular Rehabilitation Pencil Push-ups Details Pencil Push-ups Position Seated PT-OP-T Assessment and Plan Start: 04/18/23 14:12 Freq: Status: Active Protocol: Document 04/21/23 12:00 DCW (Rec: 04/21/23 12:44 DCW [id number]) Physical Therapy Assessment Impairments Impairments Balance,Functional Activities, Functional Mobility,Gait, Strength,Vestibular,Visual Motor Goals Three Impairment Pt experiences diplopia at 41 cm during convergence testing Facility Supervisor Goal (LTG) Pt to improve convergence testing by at least 16 cm to a distance of at worst 25 cm in order to improve ability for ocular tracking and decreased visual motion sensitivity. LTG Duration 06/17/23 Two Impairment Pt exhibits a fall reaction in CTSIB positions V and Intermediate Goal (LTG) Pt to demonstrate ability to maintain CTSIB position V for at least 30 seconds with moderate sway or better in order to show improve vestibular function LTG Duration 06/17/23 One Impairment Pt does not have an appropriate home exercise program Short Term Goal (STG) Pt to be independent and compliant with an appropriate HEP STG Duration 05/19/23 Assessment Summary Assessment Pt had good response to today' s session, showing good progress already with convergence. Continue to focus on vestibular challenges. Physical Therapy Plan Frequency and Duration Frequency of Treatment 2x/Week Plan of Care Start Date 04/18/23 Plan of Care End Date 06/17/23 Therapeutic Interventions Therapeutic Interventions Balance Training,Coordination Training,Gait Training,Home Exercise Program,Neuromuscular Re-education,Patient/ Caregiver Education,Self-Care/ Home Management,Soft Tissue Mobilization,Therapeutic Activities,Therapeutic Exercises,Vestibular Rehabilitation Next Visit Focus/Plan Next Note Type Treatment Note Next Visit Plan Adaptation/habituation exercises, pencil push-ups, VOR retraining
--- NOTE | 2023-04-25 14:27 | PT.OTN ---
Current Diagnoses Unsteadiness on feet (04/25/23) Dizziness and giddiness (04/25/23) Physical Therapy Treatment Note PT-OP-A Visit Information Start: 04/18/23 14:12 Freq: Status: Active Protocol: Document 04/25/23 13:45 DCW (Rec: 04/25/23 14:27 DCW [id number]) Out-Patient Physical Therapy Visit Information Visit Information Visit Type Treatment Note Visit Start Time 13:45 Visit Stop Time 14:30 Total Visit Minutes 45 Visit Number 3 Number of ONCOLOGY RESEARCH RN Visits 0 Evaluation Information Evaluation Date 04/18/23 PT-OP-B Current Condition Start: 04/18/23 14:12 Freq: Status: Active Protocol: Document 04/18/23 12:00 DCW (Rec: 04/18/23 14:23 DCW [id number]) Current Condition History of Current Condition Onset Date Multi-year history Current Complaints Constant imbalance/instability , near falls History of Current Condition Pt is a 78 year old female presenting with a long- standing history of imbalance/ instability. Pt reports it constantly feels like I'm drunk or something. Notes feeling like there is constant pressure in her head, especially in her ears, but if she tried to pop them, she gets suddenly dizzy. Per patient, she underwent a VNG, which was fine. Was referred to an ear doctor at [facility], but was just then referred to vestibular therapy with minimal testing. Pt notes she is constantly putting her hands on tobias or furniture to stabilize herself . Has not had any falls, but is very, very careful at all times. Pt as diagnosed with anal cancer two years ago, and treated with chemo and radiation. At that time, she had to but her in a care facility secondary to aphasia and dementia, and has been very stressed about everything, which has also impacted her symptoms. 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 PT-OP-C Subjective Start: 04/18/23 14:12 Freq: Status: Active Protocol: Document 04/25/23 13:45 DCW (Rec: 04/25/23 14:27 DCW [id number]) OP-PT Subjective Patient Comments Patient Comments [place] good after last viist, has been compliant with HEP so far. Does note recently hearing a thump-thump in her ears. BP measured at 112/69. PT-OP-O Vestibular Start: 04/18/23 14:12 Freq: Status: Active Protocol: Document 04/18/23 12:00 DCW (Rec: 04/18/23 17:32 DCW [id number]) Vestibular Assessment Auditory Tests Bey Test Within normal limits Rinne Test Negative Air Conduction Results Equal Visual Testing Smooth Pursuits Horizontal WNL Smooth Pursuits Vertical WNL Saccades Horizontal WNL Saccades Vertical WNL Heave Test Positive Bilateral Thrust Head Positive Bilateral Convergence Test 41 cm DVA (Line Degradation) 2 Positional Testing [place]-Hallpike Negative Left,Negative Right Rolling Test Negative Left,Negative Right Vestibular Function Tests CTSIB Position 1 30 seconds Mild Sway CTSIB Position 2 30 seconds Mild Sway CTSIB Position 3 30 seconds Mild Sway CTSIB Position 4 30 seconds Mild Sway CTSIB Position 5 Fall Reaction CTSIB Position 6 Fall Reaction PT-OP-Q Treatments Start: 04/18/23 14:12 Freq: Status: Active Protocol: Document 04/25/23 13:45 DCW (Rec: 04/25/23 14:27 DCW [id number]) Gym Equipment Shuttle Recovery Unilateral Squats Resistance 37# (One new) Shuttle Recovery Platform Stable Reps/Time x20 Bilateral Squats Resistance 75# (Two new) Shuttle Recovery Platform Stable Reps/Time x20 Shuttle Balance Red Details WBOS, Staggered Neuro Re-Education Treatment Balance Activities Dynamic Gait Details in Hallway Comments Heat turns (100 bpm) Tandem Gait Retro Gait Foam Details Disco ball Surface Blue foam DL stance Vestibular Rehabilitation X2 Viewing Details Head and target moving opposite directions Distance From Target Arm's length Speed As tolerated Position Seated PT-OP-T Assessment and Plan Start: 04/18/23 14:12 Freq: Status: Active Protocol: Document 04/25/23 13:45 DCW (Rec: 04/25/23 14:27 DCW [id number]) Physical Therapy Assessment Impairments Impairments Balance,Functional Activities, Functional Mobility,Gait, Strength,Vestibular,Visual Motor Goals Three Impairment Pt experiences diplopia at 41 cm during convergence testing Detention Goal (LTG) Pt to improve convergence testing by at least 16 cm to a distance of at worst 25 cm in order to improve ability for ocular tracking and decreased visual motion sensitivity. LTG Duration 06/17/23 Two Impairment Pt exhibits a fall reaction in CTSIB positions V and Detention Goal (LTG) Pt to demonstrate ability to maintain CTSIB position V for at least 30 seconds with moderate sway or better in order to show improve vestibular function LTG Duration 06/17/23 One Impairment Pt does not have an appropriate home exercise program Short Term Goal (STG) Pt to be independent and compliant with an appropriate HEP STG Duration 05/19/23 Assessment Summary Assessment Pt showed difficulty with Shuttle Balance, but overall did well, thought it was a good challenge. Good response to oculomotor exercises. Physical Therapy Plan Frequency and Duration Frequency of Treatment 2x/Week Plan of Care Start Date 04/18/23 Plan of Care End Date 06/17/23 Therapeutic Interventions Therapeutic Interventions Balance Training,Coordination Training,Gait Training,Home Exercise Program,Neuromuscular Re-education,Patient/ Caregiver Education,Self-Care/ Home Management,Soft Tissue Mobilization,Therapeutic Activities,Therapeutic Exercises,Vestibular Rehabilitation Next Visit Focus/Plan Next Note Type Treatment Note Next Visit Plan Adaptation/habituation exercises, pencil push-ups, VOR retraining
--- NOTE | 2023-05-09 16:43 | PT.OTN ---
Current Diagnoses Unsteadiness on feet (05/09/23) Dizziness and giddiness (05/09/23) Physical Therapy Treatment Note PT-OP-A Visit Information Start: 04/18/23 14:12 Freq: Status: Active Protocol: Document 05/09/23 16:00 DCW (Rec: 05/09/23 16:43 DCW [id number]) Out-Patient Physical Therapy Visit Information Visit Information Visit Type Treatment Note Visit Start Time 16:00 Visit Stop Time 16:45 Visit Number 4 Number of EMERY GRINDER Visits 0 Evaluation Information Evaluation Date 04/18/23 PT-OP-B Current Condition Start: 04/18/23 14:12 Freq: Status: Active Protocol: Document 04/18/23 12:00 DCW (Rec: 04/18/23 14:23 DCW [id number]) Current Condition History of Current Condition Onset Date Multi-year history Current Complaints Constant imbalance/instability , near falls History of Current Condition Pt is a 78 year old female presenting with a long- standing history of imbalance/ instability. Pt reports it constantly feels like I'm drunk or something. Notes feeling like there is constant pressure in her head, especially in her ears, but if she tried to pop them, she gets suddenly dizzy. Per patient, she underwent a VNG, which was fine. Was referred to an ear doctor at [facility], but was just then referred to vestibular therapy with minimal testing. Pt notes she is constantly putting her hands on tobias or furniture to stabilize herself . Has not had any falls, but is very, very careful at all times. Pt as diagnosed with anal cancer two years ago, and treated with chemo and radiation. At that time, she had to but her in a care facility secondary to aphasia and dementia, and has been very stressed about everything, which has also impacted her symptoms. 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 PT-OP-C Subjective Start: 04/18/23 14:12 Freq: Status: Active Protocol: Document 05/09/23 16:00 DCW (Rec: 05/09/23 16:43 DCW [id number]) OP-PT Subjective Patient Comments Patient Comments I'm doing my stuff every day. PT-OP-O Vestibular Start: 04/18/23 14:12 Freq: Status: Active Protocol: Document 04/18/23 12:00 DCW (Rec: 04/18/23 17:32 DCW [id number]) Vestibular Assessment Auditory Tests Bey Test Within normal limits Rinne Test Negative Air Conduction Results Equal Visual Testing Smooth Pursuits Horizontal WNL Smooth Pursuits Vertical WNL Saccades Horizontal WNL Saccades Vertical WNL Heave Test Positive Bilateral Thrust Head Positive Bilateral Convergence Test 41 cm DVA (Line Degradation) 2 Positional Testing [place]-Hallpike Negative Left,Negative Right Rolling Test Negative Left,Negative Right Vestibular Function Tests CTSIB Position 1 30 seconds Mild Sway CTSIB Position 2 30 seconds Mild Sway CTSIB Position 3 30 seconds Mild Sway CTSIB Position 4 30 seconds Mild Sway CTSIB Position 5 Fall Reaction CTSIB Position 6 Fall Reaction PT-OP-Q Treatments Start: 04/18/23 14:12 Freq: Status: Active Protocol: Document 05/09/23 16:00 DCW (Rec: 05/09/23 16:43 DCW [id number]) Gym Equipment Shuttle Recovery Unilateral Squats Resistance 37# (One new) Shuttle Recovery Platform Stable Reps/Time x20 Bilateral Squats Resistance 75# (Two new) Shuttle Recovery Platform Stable Reps/Time x20 Shuttle Balance Red Details WBOS, Staggered Therapeutic Exercises Standing Exercises Hip Extension Standing Exercise Name Hip Extension Side bilateral Resistance Green Neuro Re-Education Treatment Balance Activities Dynamic Gait Details in Hallway Comments Heat turns (100 bpm) Tandem Gait Retro Gait EC Gait Vestibular Rehabilitation Pencil Push-ups Details Pencil Push-ups Position Tandem Stance PT-OP-T Assessment and Plan Start: 04/18/23 14:12 Freq: Status: Active Protocol: Document 05/09/23 16:00 DCW (Rec: 05/09/23 16:43 [facility] [id number]) Physical Therapy Assessment Impairments Impairments Balance,Functional Activities, Functional Mobility,Gait, Strength,Vestibular,Visual Motor Goals Three Impairment Pt experiences diplopia at 41 cm during convergence testing Senior Care Goal (LTG) Pt to improve convergence testing by at least 16 cm to a distance of at worst 25 cm in order to improve ability for ocular tracking and decreased visual motion sensitivity. LTG Duration 06/17/23 Two Impairment Pt exhibits a fall reaction in CTSIB positions V and Senior Care Goal (LTG) Pt to demonstrate ability to maintain CTSIB position V for at least 30 seconds with moderate sway or better in order to show improve vestibular function LTG Duration 06/17/23 One Impairment Pt does not have an appropriate home exercise program Short Term Goal (STG) Pt to be independent and compliant with an appropriate HEP STG Duration 05/19/23 Assessment Summary Assessment Very good response to treatment today, feeling significant improvement overall. Has been compliant with HEP. Is planning to go out of town the next few weeks , unlikely to be able to come to PT until next scheduled in 3 weeks. Physical Therapy Plan Frequency and Duration Frequency of Treatment 2x/Week Plan of Care Start Date 04/18/23 Plan of Care End Date 06/17/23 Therapeutic Interventions Therapeutic Interventions Balance Training,Coordination Training,Gait Training,Home Exercise Program,Neuromuscular Re-education,Patient/ Caregiver Education,Self-Care/ Home Management,Soft Tissue Mobilization,Therapeutic Activities,Therapeutic Exercises,Vestibular Rehabilitation Next Visit Focus/Plan Next Note Type Treatment Note Next Visit Plan Adaptation/habituation exercises, pencil push-ups, VOR retraining
--- NOTE | 2023-05-30 16:43 | PT.OTN ---
Current Diagnoses Unsteadiness on feet (05/30/23) Dizziness and giddiness (05/30/23) Physical Therapy Treatment Note PT-OP-A Visit Information Start: 04/18/23 14:12 Freq: Status: Active Protocol: Document 05/30/23 16:00 DCW (Rec: 05/30/23 16:43 DCW [id number]) Out-Patient Physical Therapy Visit Information Visit Information Visit Type Treatment Note Visit Start Time 16:00 Visit Stop Time 16:45 Visit Number 5 Number of SENIOR ELECTRICAL DESIGNER Visits 0 Evaluation Information Evaluation Date 04/18/23 PT-OP-B Current Condition Start: 04/18/23 14:12 Freq: Status: Active Protocol: Document 04/18/23 12:00 DCW (Rec: 04/18/23 14:23 DCW [id number]) Current Condition History of Current Condition Onset Date Multi-year history Current Complaints Constant imbalance/instability , near falls History of Current Condition Pt is a 78 year old female presenting with a long- standing history of imbalance/ instability. Pt reports it constantly feels like I'm drunk or something. Notes feeling like there is constant pressure in her head, especially in her ears, but if she tried to pop them, she gets suddenly dizzy. Per patient, she underwent a VNG, which was fine. Was referred to an ear doctor at [facility], but was just then referred to vestibular therapy with minimal testing. Pt notes she is constantly putting her hands on tobias or furniture to stabilize herself . Has not had any falls, but is very, very careful at all times. Pt as diagnosed with anal cancer two years ago, and treated with chemo and radiation. At that time, she had to but her in a care facility secondary to aphasia and dementia, and has been very stressed about everything, which has also impacted her symptoms. 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 PT-OP-C Subjective Start: 04/18/23 14:12 Freq: Status: Active Protocol: Document 05/30/23 16:00 DCW (Rec: 05/30/23 16:43 DCW [id number]) OP-PT Subjective Patient Comments Patient Comments I never should have left town . I had a wonderful time, but I just stayed in and sat the whole time. PT-OP-O Vestibular Start: 04/18/23 14:12 Freq: Status: Active Protocol: Document 04/18/23 12:00 DCW (Rec: 04/18/23 17:32 DCW [id number]) Vestibular Assessment Auditory Tests Bey Test Within normal limits Rinne Test Negative Air Conduction Results Equal Visual Testing Smooth Pursuits Horizontal WNL Smooth Pursuits Vertical WNL Saccades Horizontal WNL Saccades Vertical WNL Heave Test Positive Bilateral Thrust Head Positive Bilateral Convergence Test 41 cm DVA (Line Degradation) 2 Positional Testing [place]-Hallpike Negative Left,Negative Right Rolling Test Negative Left,Negative Right Vestibular Function Tests CTSIB Position 1 30 seconds Mild Sway CTSIB Position 2 30 seconds Mild Sway CTSIB Position 3 30 seconds Mild Sway CTSIB Position 4 30 seconds Mild Sway CTSIB Position 5 Fall Reaction CTSIB Position 6 Fall Reaction PT-OP-Q Treatments Start: 04/18/23 14:12 Freq: Status: Active Protocol: Document 05/30/23 16:00 DCW (Rec: 05/30/23 16:43 DC [id number]) Gym Equipment Shuttle Recovery Unilateral Squats Resistance 37# (One new) Shuttle Recovery Platform Stable Reps/Time x20 Bilateral Squats Resistance 75# (Three new) Shuttle Recovery Platform Stable Reps/Time x20 Shuttle Balance Red Details WBOS, Staggered, Lateral Therapeutic Exercises Other Exercises Step-ups Other Exercise Name Step-ups Side bilateral Equipment Used 8 step Neuro Re-Education Treatment Balance Activities Uneven Surface Details Uneven Surface ambulation Dynamic Gait Details in Hallway Comments Heat turns (100 bpm) Tandem Gait Retro Gait PT-OP-T Assessment and Plan Start: 04/18/23 14:12 Freq: Status: Active Protocol: Document 05/30/23 16:00 DCW (Rec: 05/30/23 16:43 [facility] [id number]) Physical Therapy Assessment Impairments Impairments Balance,Functional Activities, Functional Mobility,Gait, Strength,Vestibular,Visual Motor Goals Three Impairment Pt experiences diplopia at 41 cm during convergence testing Flexographic Printing Machinist Goal (LTG) Pt to improve convergence testing by at least 16 cm to a distance of at worst 25 cm in order to improve ability for ocular tracking and decreased visual motion sensitivity. LTG Duration 06/17/23 Two Impairment Pt exhibits a fall reaction in CTSIB positions V and Flexographic Printing Machinist Goal (LTG) Pt to demonstrate ability to maintain CTSIB position V for at least 30 seconds with moderate sway or better in order to show improve vestibular function LTG Duration 06/17/23 One Impairment Pt does not have an appropriate home exercise program Short Term Goal (STG) Pt to be independent and compliant with an appropriate HEP STG Duration 05/19/23 Assessment Summary Assessment Despite recent lay-off from activity secondary to vacation , pt did very well today. Clearly activities performed during today's session were fatiguing, however pt had very good overall response. Physical Therapy Plan Frequency and Duration Frequency of Treatment 2x/Week Plan of Care Start Date 04/18/23 Plan of Care End Date 06/17/23 Therapeutic Interventions Therapeutic Interventions Balance Training,Coordination Training,Gait Training,Home Exercise Program,Neuromuscular Re-education,Patient/ Caregiver Education,Self-Care/ Home Management,Soft Tissue Mobilization,Therapeutic Activities,Therapeutic Exercises,Vestibular Rehabilitation Next Visit Focus/Plan Next Note Type Treatment Note Next Visit Plan Adaptation/habituation exercises, pencil push-ups, VOR retraining
--- NOTE | 2023-06-01 12:46 | PT.OTN ---
Current Diagnoses Unsteadiness on feet (06/01/23) Dizziness and giddiness (06/01/23) Physical Therapy Treatment Note PT-OP-A Visit Information Start: 04/18/23 14:12 Freq: Status: Active Protocol: Document 06/01/23 12:03 DCW (Rec: 06/01/23 12:45 DCW [id number]) Out-Patient Physical Therapy Visit Information Visit Information Visit Type Treatment Note Visit Start Time 12:03 Visit Stop Time 12:45 Visit Number 6 Number of CLOTH PRINTER HELPER Visits 0 Evaluation Information Evaluation Date 04/18/23 PT-OP-B Current Condition Start: 04/18/23 14:12 Freq: Status: Active Protocol: Document 04/18/23 12:00 DCW (Rec: 04/18/23 14:23 DCW [id number]) Current Condition History of Current Condition Onset Date Multi-year history Current Complaints Constant imbalance/instability , near falls History of Current Condition Pt is a 78 year old female presenting with a long- standing history of imbalance/ instability. Pt reports it constantly feels like I'm drunk or something. Notes feeling like there is constant pressure in her head, especially in her ears, but if she tried to pop them, she gets suddenly dizzy. Per patient, she underwent a VNG, which was fine. Was referred to an ear doctor at [facility], but was just then referred to vestibular therapy with minimal testing. Pt notes she is constantly putting her hands on tobias or furniture to stabilize herself . Has not had any falls, but is very, very careful at all times. Pt as diagnosed with anal cancer two years ago, and treated with chemo and radiation. At that time, she had to but her in a care facility secondary to aphasia and dementia, and has been very stressed about everything, which has also impacted her symptoms. 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 PT-OP-C Subjective Start: 04/18/23 14:12 Freq: Status: Active Protocol: Document 06/01/23 12:03 DCW (Rec: 06/01/23 12:45 DCW [id number]) OP-PT Subjective Patient Comments Patient Comments Pt PT-OP-O Vestibular Start: 04/18/23 14:12 Freq: Status: Active Protocol: Document 04/18/23 12:00 DCW (Rec: 04/18/23 17:32 PAW [id number]) Vestibular Assessment Auditory Tests Bey Test Within normal limits Rinne Test Negative Air Conduction Results Equal Visual Testing Smooth Pursuits Horizontal WNL Smooth Pursuits Vertical WNL Saccades Horizontal WNL Saccades Vertical WNL Heave Test Positive Bilateral Thrust Head Positive Bilateral Convergence Test 41 cm DVA (Line Degradation) 2 Positional Testing [place]-Hallpike Negative Left,Negative Right Rolling Test Negative Left,Negative Right Vestibular Function Tests CTSIB Position 1 30 seconds Mild Sway CTSIB Position 2 30 seconds Mild Sway CTSIB Position 3 30 seconds Mild Sway CTSIB Position 4 30 seconds Mild Sway CTSIB Position 5 Fall Reaction CTSIB Position 6 Fall Reaction PT-OP-Q Treatments Start: 04/18/23 14:12 Freq: Status: Active Protocol: Document 06/01/23 12:03 DCW (Rec: 06/01/23 12:45 [facility] [id number]) Gym Equipment Shuttle Recovery Unilateral Squats Resistance 37# (One new) Shuttle Recovery Platform Stable Reps/Time x20 Bilateral Squats Resistance 75# (Three new) Shuttle Recovery Platform Stable Reps/Time x20 Shuttle Balance Red Details WBOS, Staggered, Lateral Therapeutic Exercises Standing Exercises Hip Extension Standing Exercise Name Hip Extension Side bilateral Resistance Green Other Exercises Resisted Ambulation Other Exercise Name Resisted Side-stepping Resistance Green Neuro Re-Education Treatment Balance Activities Uneven Surface Details Uneven Surface ambulation Comments Hurdles Dynamic Gait Details in Hallway Comments Heat turns (100 bpm) Tandem Gait Retro Gait PT-OP-T Assessment and Plan Start: 04/18/23 14:12 Freq: Status: Active Protocol: Document 06/01/23 12:03 DCW (Rec: 06/01/23 12:45 [facility] [id number]) Physical Therapy Assessment Impairments Impairments Balance,Functional Activities, Functional Mobility,Gait, Strength,Vestibular,Visual Motor Goals Three Impairment Pt experiences diplopia at 41 cm during convergence testing Counterperson Goal (LTG) Pt to improve convergence testing by at least 16 cm to a distance of at worst 25 cm in order to improve ability for ocular tracking and decreased visual motion sensitivity. LTG Duration 06/17/23 Two Impairment Pt exhibits a fall reaction in CTSIB positions V and Counterperson Goal (LTG) Pt to demonstrate ability to maintain CTSIB position V for at least 30 seconds with moderate sway or better in order to show improve vestibular function LTG Duration 06/17/23 One Impairment Pt does not have an appropriate home exercise program Short Term Goal (STG) Pt to be independent and compliant with an appropriate HEP STG Duration 05/19/23 Assessment Summary Assessment Pt continues to demonstrate increased dynamic balance and improved confidence with higher-level balance challenges. Continue to focus on static and dynamic balance training and LE strengthening. Physical Therapy Plan Frequency and Duration Frequency of Treatment 2x/Week Plan of Care Start Date 04/18/23 Plan of Care End Date 06/17/23 Therapeutic Interventions Therapeutic Interventions Balance Training,Coordination Training,Gait Training,Home Exercise Program,Neuromuscular Re-education,Patient/ Caregiver Education,Self-Care/ Home Management,Soft Tissue Mobilization,Therapeutic Activities,Therapeutic Exercises,Vestibular Rehabilitation Next Visit Focus/Plan Next Note Type Treatment Note Next Visit Plan Adaptation/habituation exercises, pencil push-ups, VOR retraining
--- NOTE | 2023-06-06 14:29 | PT.OTN ---
Current Diagnoses Unsteadiness on feet (06/06/23) Dizziness and giddiness (06/06/23) Physical Therapy Treatment Note PT-OP-A Visit Information Start: 04/18/23 14:12 Freq: Status: Active Protocol: Document 06/06/23 13:45 DCW (Rec: 06/06/23 14:29 DCW [id number]) Out-Patient Physical Therapy Visit Information Visit Information Visit Type Treatment Note Visit Start Time 13:45 Visit Stop Time 14:30 Visit Number 7 Number of LEGAL SECRETARY RECEPTIONIST Visits 0 Evaluation Information Evaluation Date 04/18/23 PT-OP-B Current Condition Start: 04/18/23 14:12 Freq: Status: Active Protocol: Document 04/18/23 12:00 DCW (Rec: 04/18/23 14:23 DCW [id number]) Current Condition History of Current Condition Onset Date Multi-year history Current Complaints Constant imbalance/instability , near falls History of Current Condition Pt is a 78 year old female presenting with a long- standing history of imbalance/ instability. Pt reports it constantly feels like I'm drunk or something. Notes feeling like there is constant pressure in her head, especially in her ears, but if she tried to pop them, she gets suddenly dizzy. Per patient, she underwent a VNG, which was fine. Was referred to an ear doctor at [facility], but was just then referred to vestibular therapy with minimal testing. Pt notes she is constantly putting her hands on tobias or furniture to stabilize herself . Has not had any falls, but is very, very careful at all times. Pt as diagnosed with anal cancer two years ago, and treated with chemo and radiation. At that time, she had to but her in a care facility secondary to aphasia and dementia, and has been very stressed about everything, which has also impacted her symptoms. 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 PT-OP-C Subjective Start: 04/18/23 14:12 Freq: Status: Active Protocol: Document 06/06/23 13:45 DCW (Rec: 06/06/23 14:29 DCW [id number]) OP-PT Subjective Patient Comments Patient Comments Pt admits she got distracted by a project and stayed up until 2 am last night, so she is fairly tired today. PT-OP-O Vestibular Start: 04/18/23 14:12 Freq: Status: Active Protocol: Document 04/18/23 12:00 DCW (Rec: 04/18/23 17:32 DCW [id number]) Vestibular Assessment Auditory Tests Bey Test Within normal limits Rinne Test Negative Air Conduction Results Equal Visual Testing Smooth Pursuits Horizontal WNL Smooth Pursuits Vertical WNL Saccades Horizontal WNL Saccades Vertical WNL Heave Test Positive Bilateral Thrust Head Positive Bilateral Convergence Test 41 cm DVA (Line Degradation) 2 Positional Testing [place]-Hallpike Negative Left,Negative Right Rolling Test Negative Left,Negative Right Vestibular Function Tests CTSIB Position 1 30 seconds Mild Sway CTSIB Position 2 30 seconds Mild Sway CTSIB Position 3 30 seconds Mild Sway CTSIB Position 4 30 seconds Mild Sway CTSIB Position 5 Fall Reaction CTSIB Position 6 Fall Reaction PT-OP-Q Treatments Start: 04/18/23 14:12 Freq: Status: Active Protocol: Document 06/06/23 13:45 DCW (Rec: 06/06/23 14:29 DCW [id number]) Gym Equipment Shuttle Recovery Unilateral Squats Resistance 37# (One new) Shuttle Recovery Platform Stable Reps/Time x20 Bilateral Squats Resistance 75# (Three new) Shuttle Recovery Platform Stable Reps/Time x20 Shuttle Balance Red Details WBOS, Staggered, Lateral Therapeutic Exercises Standing Exercises Hip Extension Standing Exercise Name Hip Extension Side bilateral Resistance Green Other Exercises Step-ups Other Exercise Name Step-ups Side bilateral Equipment Used 8 step Resisted Ambulation Other Exercise Name Resisted Side-stepping Resistance Green Neuro Re-Education Treatment Balance Activities Dynamic Gait Details in Hallway Comments Heat turns (100 bpm) Tandem Gait Retro Gait PT-OP-T Assessment and Plan Start: 04/18/23 14:12 Freq: Status: Active Protocol: Document 06/06/23 13:45 DCW (Rec: 06/06/23 14:29 DCW [id number]) Physical Therapy Assessment Impairments Impairments Balance,Functional Activities, Functional Mobility,Gait, Strength,Vestibular,Visual Motor Goals Three Impairment Pt experiences diplopia at 41 cm during convergence testing Recreation Supervisor Goal (LTG) Pt to improve convergence testing by at least 16 cm to a distance of at worst 25 cm in order to improve ability for ocular tracking and decreased visual motion sensitivity. LTG Duration 06/17/23 Two Impairment Pt exhibits a fall reaction in CTSIB positions V and Recreation Supervisor Goal (LTG) Pt to demonstrate ability to maintain CTSIB position V for at least 30 seconds with moderate sway or better in order to show improve vestibular function LTG Duration 06/17/23 One Impairment Pt does not have an appropriate home exercise program Short Term Goal (STG) Pt to be independent and compliant with an appropriate HEP STG Duration 05/19/23 Assessment Summary Assessment Good response today with shuttle balance and dynamic gait. Will likely perform some retesting next visit prior to pt's out of state vacation and determine if she should continue upon return. Physical Therapy Plan Frequency and Duration Frequency of Treatment 2x/Week Plan of Care Start Date 04/18/23 Plan of Care End Date 06/17/23 Therapeutic Interventions Therapeutic Interventions Balance Training,Coordination Training,Gait Training,Home Exercise Program,Neuromuscular Re-education,Patient/ Caregiver Education,Self-Care/ Home Management,Soft Tissue Mobilization,Therapeutic Activities,Therapeutic Exercises,Vestibular Rehabilitation Next Visit Focus/Plan Next Note Type Progress Note Next Visit Plan Adaptation/habituation exercises, pencil push-ups, VOR retraining
--- NOTE | 2023-06-08 14:25 | PT.OTN ---
Current Diagnoses Unsteadiness on feet (06/08/23) Dizziness and giddiness (06/08/23) Physical Therapy Treatment Note PT-OP-A Visit Information Start: 04/18/23 14:12 Freq: Status: Active Protocol: Document 06/08/23 13:45 DCW (Rec: 06/08/23 14:25 DCW [id number]) Out-Patient Physical Therapy Visit Information Visit Information Visit Type Progress Note Visit Start Time 13:45 Visit Stop Time 14:30 Visit Number 8 Number of MERCHANDISE HANDLER Visits 0 Evaluation Information Evaluation Date 04/18/23 PT-OP-B Current Condition Start: 04/18/23 14:12 Freq: Status: Active Protocol: Document 04/18/23 12:00 DCW (Rec: 04/18/23 14:23 DCW [id number]) Current Condition History of Current Condition Onset Date Multi-year history Current Complaints Constant imbalance/instability , near falls History of Current Condition Pt is a 78 year old female presenting with a long- standing history of imbalance/ instability. Pt reports it constantly feels like I'm drunk or something. Notes feeling like there is constant pressure in her head, especially in her ears, but if she tried to pop them, she gets suddenly dizzy. Per patient, she underwent a VNG, which was fine. Was referred to an ear doctor at [facility], but was just then referred to vestibular therapy with minimal testing. Pt notes she is constantly putting her hands on tobias or furniture to stabilize herself . Has not had any falls, but is very, very careful at all times. Pt as diagnosed with anal cancer two years ago, and treated with chemo and radiation. At that time, she had to but her in a care facility secondary to aphasia and dementia, and has been very stressed about everything, which has also impacted her symptoms. 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 PT-OP-C Subjective Start: 04/18/23 14:12 Freq: Status: Active Protocol: Document 06/08/23 13:45 DCW (Rec: 06/08/23 14:25 DCW [id number]) OP-PT Subjective Patient Comments Patient Comments I feel a little bit extra wiggly today. PT-OP-O Vestibular Start: 04/18/23 14:12 Freq: Status: Active Protocol: Document 06/08/23 13:45 DCW (Rec: 06/08/23 13:55 DCW [id number]) Vestibular Assessment Visual Testing Convergence Test 10 cm Vestibular Function Tests CTSIB Position 1 30 seconds Mild Sway CTSIB Position 2 30 seconds Mild Sway CTSIB Position 3 30 seconds Mild Sway CTSIB Position 4 30 seconds Mild Sway CTSIB Position 5 Fall Reaction CTSIB Position 6 Fall Reaction PT-OP-Q Treatments Start: 04/18/23 14:12 Freq: Status: Active Protocol: Document 06/08/23 13:45 DCW (Rec: 06/08/23 14:25 DCW [id number]) Gym Equipment Shuttle Recovery Unilateral Squats Resistance 37# (One new) Shuttle Recovery Platform Stable Reps/Time x20 Bilateral Squats Resistance 75# (Three new) Shuttle Recovery Platform Stable Reps/Time x20 Shuttle Balance Red Details WBOS (EO/EC), Staggered, Lateral Therapeutic Exercises Other Exercises Resisted Ambulation Other Exercise Name Resisted Side-stepping Resistance Green Neuro Re-Education Treatment Balance Activities SLS Details SLS Equipment // bars Tandem Details Tandem Stance Equipment // bars PT-OP-T Assessment and Plan Start: 04/18/23 14:12 Freq: Status: Active Protocol: Document 06/08/23 13:45 DCW (Rec: 06/08/23 14:25 DCW [id number]) Physical Therapy Assessment Impairments Impairments Balance,Functional Activities, Functional Mobility,Gait, Strength,Vestibular,Visual Motor Goals Three Impairment Pt experiences diplopia at 41 cm during convergence testing Cylinder Die Machine Helper Goal (LTG) Pt to improve convergence testing by at least 16 cm to a distance of at worst 25 cm in order to improve ability for ocular tracking and decreased visual motion sensitivity. LTG Duration 06/17/23 Two Impairment Pt exhibits a fall reaction in CTSIB positions V and Cylinder Die Machine Helper Goal (LTG) Pt to demonstrate ability to maintain CTSIB position V for at least 30 seconds with moderate sway or better in order to show improve vestibular function LTG Duration 06/17/23 One Impairment Pt does not have an appropriate home exercise program Short Term Goal (STG) Pt to be independent and compliant with an appropriate HEP STG Duration 05/19/23 Assessment Summary Assessment Improved convergence by 31 cm compared to eval, very significant improvement. Similar performance during CTSIB, with fall reaction in positions V and . Leaving state for next few weeks, would likely benefit from 1-2 more visits upon return to ensure she is still doing well . Physical Therapy Plan Frequency and Duration Frequency of Treatment 1x/Week Plan of Care Start Date 06/08/23 Plan of Care End Date 08/07/23 Therapeutic Interventions Therapeutic Interventions Balance Training,Coordination Training,Gait Training,Home Exercise Program,Neuromuscular Re-education,Patient/ Caregiver Education,Self-Care/ Home Management,Soft Tissue Mobilization,Therapeutic Activities,Therapeutic Exercises,Vestibular Rehabilitation Next Visit Focus/Plan Next Note Type Progress Note Next Visit Plan Adaptation/habituation exercises, pencil push-ups, VOR retraining
--- NOTE | 2023-06-08 14:26 | PT.OPPOC ---
Physical, Occupational & Speech Therapy At [facility] Current Diagnoses Unsteadiness on feet (06/08/23) Dizziness and giddiness (06/08/23) Visit Care Team Role Provider Type Donna Toussaint MD Family Provider Physician Primary Care Provider Specialty: Family Practice Address: [facility] [place], [address] Email: [email or web address] Shiraz Edmonds MD Attending Provider Non-Staff Referring Provider Specialty: Otolaryngology (ENT) Address: [address] [place] [address], [place], [address] Email: Plan Of Care PT-OP-T Assessment and Plan Start: 04/18/23 14:12 Freq: Status: Active Protocol: Document 06/08/23 13:45 DCW (Rec: 06/08/23 14:25 DCW [id number]) Physical Therapy Assessment Impairments Impairments Balance,Functional Activities, Functional Mobility,Gait, Strength,Vestibular,Visual Motor Goals Three Impairment Pt experiences diplopia at 41 cm during convergence testing Mcfp Goal (LTG) Pt to improve convergence testing by at least 16 cm to a distance of at worst 25 cm in order to improve ability for ocular tracking and decreased visual motion sensitivity. LTG Duration 06/17/23 Two Impairment Pt exhibits a fall reaction in CTSIB positions V and It Assistant Goal (LTG) Pt to demonstrate ability to maintain CTSIB position V for at least 30 seconds with moderate sway or better in order to show improve vestibular function LTG Duration 06/17/23 One Impairment Pt does not have an appropriate home exercise program Short Term Goal (STG) Pt to be independent and compliant with an appropriate HEP STG Duration 05/19/23 Assessment Summary Assessment Improved convergence by 31 cm compared to eval, very significant improvement. Similar performance during CTSIB, with fall reaction in positions V and . Leaving state for next few weeks, would likely benefit from 1-2 more visits upon return to ensure she is still doing well . Physical Therapy Plan Frequency and Duration Frequency of Treatment 1x/Week Plan of Care Start Date 06/08/23 Plan of Care End Date 08/07/23 Therapeutic Interventions Therapeutic Interventions Balance Training,Coordination Training,Gait Training,Home Exercise Program,Neuromuscular Re-education,Patient/ Caregiver Education,Self-Care/ Home Management,Soft Tissue Mobilization,Therapeutic Activities,Therapeutic Exercises,Vestibular Rehabilitation Next Visit Focus/Plan Next Note Type Progress Note Next Visit Plan Adaptation/habituation exercises, pencil push-ups, VOR retraining Plan of Care Dates Plan of Care Start Date 06/08/23 Plan of Care End Date 08/07/23 Electronically Signed by: Marquis Munoz, PT 06/08/23 4570 If you are in agreement with this Plan of Care, please return a signed and dated copy. I have reviewed this Plan of Care and certify that the skilled therapy services above are required to meet the patient?s needs. Physician Signature Date Printed Name and Credentials Clinical Instructor Signature Printed Name and Credentials
--- NOTE | 2023-07-06 11:59 | PT.OTN ---
Current Diagnoses Unsteadiness on feet (07/06/23) Dizziness and giddiness (07/06/23) Physical Therapy Treatment Note PT-OP-A Visit Information Start: 04/18/23 14:12 Freq: Status: Active Protocol: Document 07/06/23 11:15 DCW (Rec: 07/06/23 11:59 DCW [id number]) Out-Patient Physical Therapy Visit Information Visit Information Visit Type Treatment Note Visit Start Time 11:15 Visit Stop Time 12:00 Visit Number 9 Number of SHADE CUTTER Visits 0 Evaluation Information Evaluation Date 04/18/23 PT-OP-B Current Condition Start: 04/18/23 14:12 Freq: Status: Active Protocol: Document 04/18/23 12:00 DCW (Rec: 04/18/23 14:23 DCW [id number]) Current Condition History of Current Condition Onset Date Multi-year history Current Complaints Constant imbalance/instability , near falls History of Current Condition Pt is a 78 year old female presenting with a long- standing history of imbalance/ instability. Pt reports it constantly feels like I'm drunk or something. Notes feeling like there is constant pressure in her head, especially in her ears, but if she tried to pop them, she gets suddenly dizzy. Per patient, she underwent a VNG, which was fine. Was referred to an ear doctor at [facility], but was just then referred to vestibular therapy with minimal testing. Pt notes she is constantly putting her hands on tobias or furniture to stabilize herself . Has not had any falls, but is very, very careful at all times. Pt as diagnosed with anal cancer two years ago, and treated with chemo and radiation. At that time, she had to but her in a care facility secondary to aphasia and dementia, and has been very stressed about everything, which has also impacted her symptoms. 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 PT-OP-C Subjective Start: 04/18/23 14:12 Freq: Status: Active Protocol: Document 07/06/23 11:15 DCW (Rec: 07/06/23 11:59 DCW [id number]) OP-PT Subjective Patient Comments Patient Comments Pt returns to PT from her trip to the [facility], hopeful that she'll be able to move to move in the next month or two . PT-OP-O Vestibular Start: 04/18/23 14:12 Freq: Status: Active Protocol: Document 06/08/23 13:45 DCW (Rec: 06/08/23 13:55 DCW [id number]) Vestibular Assessment Visual Testing Convergence Test 10 cm Vestibular Function Tests CTSIB Position 1 30 seconds Mild Sway CTSIB Position 2 30 seconds Mild Sway CTSIB Position 3 30 seconds Mild Sway CTSIB Position 4 30 seconds Mild Sway CTSIB Position 5 Fall Reaction CTSIB Position 6 Fall Reaction PT-OP-Q Treatments Start: 04/18/23 14:12 Freq: Status: Active Protocol: Document 07/06/23 11:15 DCW (Rec: 07/06/23 11:59 DCW [id number]) Gym Equipment Shuttle Recovery Unilateral Squats Resistance 37# (One new) Shuttle Recovery Platform Stable Reps/Time x20 Bilateral Squats Resistance 75# (Three new) Shuttle Recovery Platform Stable Reps/Time x20 Shuttle Balance Red Details WBOS (EO/EC), Staggered, Lateral Neuro Re-Education Treatment Balance Activities SLS Details SLS Equipment // bars Tandem Details Tandem Stance Equipment // bars Dynamic Gait Details in Hallway Comments Heat turns (100 bpm) Tandem Gait Retro Gait PT-OP-T Assessment and Plan Start: 04/18/23 14:12 Freq: Status: Active Protocol: Document 07/06/23 11:15 DCW (Rec: 07/06/23 11:59 DCW [id number]) Physical Therapy Assessment Impairments Impairments Balance,Functional Activities, Functional Mobility,Gait, Strength,Vestibular,Visual Motor Goals Three Impairment Pt experiences diplopia at 41 cm during convergence testing Grapple Yarder Operator Goal (LTG) Pt to improve convergence testing by at least 16 cm to a distance of at worst 25 cm in order to improve ability for ocular tracking and decreased visual motion sensitivity. LTG Duration 06/17/23 Two Impairment Pt exhibits a fall reaction in CTSIB positions V and Senior Living Goal (LTG) Pt to demonstrate ability to maintain CTSIB position V for at least 30 seconds with moderate sway or better in order to show improve vestibular function LTG Duration 06/17/23 One Impairment Pt does not have an appropriate home exercise program Short Term Goal (STG) Pt to be independent and compliant with an appropriate HEP STG Duration 05/19/23 Assessment Summary Assessment Discharge following next visit , [place], has a lot of activity at the moment, cannot keep up with scheduling PT. Physical Therapy Plan Frequency and Duration Frequency of Treatment 1x/Week Plan of Care Start Date 06/08/23 Plan of Care End Date 08/07/23 Therapeutic Interventions Therapeutic Interventions Balance Training,Coordination Training,Gait Training,Home Exercise Program,Neuromuscular Re-education,Patient/ Caregiver Education,Self-Care/ Home Management,Soft Tissue Mobilization,Therapeutic Activities,Therapeutic Exercises,Vestibular Rehabilitation Next Visit Focus/Plan Next Note Type Discharge Summary Next Visit Plan Adaptation/habituation exercises, pencil push-ups, VOR retraining
--- NOTE | 2023-07-13 12:41 | PT.OTN ---
Current Diagnoses Unsteadiness on feet (07/13/23) Dizziness and giddiness (07/13/23) Physical Therapy Treatment Note PT-OP-A Visit Information Start: 04/18/23 14:12 Freq: Status: Active Protocol: Document 07/13/23 12:00 DCW (Rec: 07/13/23 12:41 DCW [id number]) Out-Patient Physical Therapy Visit Information Visit Information Visit Type Discharge Summary Visit Start Time 12:00 Visit Stop Time 12:30 Visit Number 10 Number of OPERATING ROOM ORDERLY Visits 0 Evaluation Information Evaluation Date 04/18/23 PT-OP-B Current Condition Start: 04/18/23 14:12 Freq: Status: Active Protocol: Document 04/18/23 12:00 DCW (Rec: 04/18/23 14:23 DCW [id number]) Current Condition History of Current Condition Onset Date Multi-year history Current Complaints Constant imbalance/instability , near falls History of Current Condition Pt is a 78 year old female presenting with a long- standing history of imbalance/ instability. Pt reports it constantly feels like I'm drunk or something. Notes feeling like there is constant pressure in her head, especially in her ears, but if she tried to pop them, she gets suddenly dizzy. Per patient, she underwent a VNG, which was fine. Was referred to an ear doctor at [facility], but was just then referred to vestibular therapy with minimal testing. Pt notes she is constantly putting her hands on tobias or furniture to stabilize herself . Has not had any falls, but is very, very careful at all times. Pt as diagnosed with anal cancer two years ago, and treated with chemo and radiation. At that time, she had to but her in a care facility secondary to aphasia and dementia, and has been very stressed about everything, which has also impacted her symptoms. 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 PT-OP-C Subjective Start: 04/18/23 14:12 Freq: Status: Active Protocol: Document 07/13/23 12:00 DCW (Rec: 07/13/23 12:41 DCW [id number]) OP-PT Subjective Patient Comments Patient Comments I'm ready to discharge! PT-OP-O Vestibular Start: 04/18/23 14:12 Freq: Status: Active Protocol: Document 06/08/23 13:45 DCW (Rec: 06/08/23 13:55 DCW [id number]) Vestibular Assessment Visual Testing Convergence Test 10 cm Vestibular Function Tests CTSIB Position 1 30 seconds Mild Sway CTSIB Position 2 30 seconds Mild Sway CTSIB Position 3 30 seconds Mild Sway CTSIB Position 4 30 seconds Mild Sway CTSIB Position 5 Fall Reaction CTSIB Position 6 Fall Reaction PT-OP-Q Treatments Start: 04/18/23 14:12 Freq: Status: Active Protocol: Document 07/13/23 12:00 DCW (Rec: 07/13/23 12:41 DC [id number]) Gym Equipment Shuttle Balance Red Details WBOS (EO/EC), Staggered, Lateral Therapeutic Exercises Other Exercises Resisted Ambulation Other Exercise Name Resisted Side-stepping Resistance Green Neuro Re-Education Treatment Balance Activities SLS Details SLS Equipment // bars Tandem Details Tandem Stance Equipment // bars Dynamic Gait Details in Hallway Comments Heat turns (100 bpm) Tandem Gait Retro Gait PT-OP-T Assessment and Plan Start: 04/18/23 14:12 Freq: Status: Active Protocol: Document 07/13/23 12:00 DCW (Rec: 07/13/23 12:41 [facility] [id number]) Physical Therapy Assessment Impairments Impairments Balance,Functional Activities, Functional Mobility,Gait, Strength,Vestibular,Visual Motor Goals Three Impairment Pt experiences diplopia at 41 cm during convergence testing Mcfp Goal (LTG) Pt to improve convergence testing by at least 16 cm to a distance of at worst 25 cm in order to improve ability for ocular tracking and decreased visual motion sensitivity. LTG Duration 06/17/23 Two Impairment Pt exhibits a fall reaction in CTSIB positions V and Mcfp Goal (LTG) Pt to demonstrate ability to maintain CTSIB position V for at least 30 seconds with moderate sway or better in order to show improve vestibular function LTG Duration 06/17/23 One Impairment Pt does not have an appropriate home exercise program Short Term Goal (STG) Pt to be independent and compliant with an appropriate HEP STG Duration 05/19/23 Assessment Summary Assessment Discharge due to prepping and packing to move to the [facility] soon. Doing well overall , comfortable with independent HEP. Physical Therapy Plan Frequency and Duration Frequency of Treatment 1x/Week Plan of Care Start Date 06/08/23 Plan of Care End Date 08/07/23 Therapeutic Interventions Therapeutic Interventions Balance Training,Coordination Training,Gait Training,Home Exercise Program,Neuromuscular Re-education,Patient/ Caregiver Education,Self-Care/ Home Management,Soft Tissue Mobilization,Therapeutic Activities,Therapeutic Exercises,Vestibular Rehabilitation Discharge Physical Therapy Discharge Reasons Patient Request Next Visit Focus/Plan Next Note Type Discharge Summary
== END 2023-07-14 10:35 | disposition home or self-care (01) ==
LOC: PHYS 12:00
PROVIDERS: Family Provider Family Medicine; PCP Family Medicine; Referring Provider Otolaryngology; Visit Provider Otolaryngology
DX: R42 Dizziness and giddiness (principal); R26.81 Unsteadiness on feet
CPT/HCPCS: 97110; 97112; 97162

== ENCOUNTER → 2023-08-08 12:26 | Outpatient (CLI) | payer MEDICARE, OTHER, SELFPAY ==
[2023-08-08 12:53] LABS: Add Manual Diff / Slide Review NO; Basophils Absolute Auto 0 /uL (0-100); Basophils Percent Auto 0.9 % (0-2); Eosinophils Absolute Auto 0 /uL (0-450); Eosinophils Percent Auto 0.7 % (2-4); Hematocrit 39.2 % (36-46); Hemoglobin 13.2 g/dL (12.0-16.0); Lymphocytes Absolute Auto 700 /uL (1100-4500); Lymphocytes Percent Auto 13.8 % (25-40); Mean Corpuscular HGB Conc 33.8 % (30-36); Mean Corpuscular Hemoglobin 32.9 PG (26-34); Mean Corpuscular Volume 97.5 fL (80-100); Monocytes Absolute Auto 300 /uL (0-900); Monocytes Percent Auto 6.6 % (3-14); Neutrophils Absolute Auto 4000 /uL (1500-7000); Platelet Count 212 X10^3/uL (150-400); Red Blood Cell Count 4.02 X10^6/uL (4.0-5.2); Red Cell Distribution Width 13.9 % (11.6-14.8); White Blood Cell Count 5.1 X10^3/uL (4.5-11.0)
[2023-08-08 13:09] LABS: Alanine Aminotransferase 16 IU/L (<35); Albumin 4.2 g/dL (3.5-5.0); Albumin Globulin Ratio 1.4 (1.0-2.8); Alkaline Phosphatase 64 U/L (38-126); Aspartate Aminotransferase 21 IU/L (14-36); BUN Creatinine Ratio 21.6 (6-22); Bilirubin Total 0.6 mg/dL (0.2-1.3); Blood Urea Nitrogen 38 mg/dL (7-17); Calcium 8.9 mg/dL (8.4-10.2); Carbon Dioxide 31 mmol/L (22-32); Chloride 104 mmol/L (98-107); Estimated Glomerular Filt Rate 29 mL/min (>60); Globulin 3.1 g/dL (1.7-4.1); Glucose 137 mg/dL (80-110); HEMOLYSIS < 15 (0-50); Potassium 4.7 mmol/L (3.4-5.1); Sodium 138 mmol/L (137-145); Total Protein 7.3 g/dL (6.3-8.2)
== END ==
LOC: LAB 12:27
PROVIDERS: Family Provider Family Medicine; PCP Family Medicine; Referring Provider Internal Medicine Medical Oncology; Visit Provider Internal Medicine Medical Oncology
DX: C21.0 Malignant neoplasm of anus, unspecified (principal)
CPT/HCPCS: 36415; 80053; 85025

== ENCOUNTER → 2023-10-06 14:29 | Outpatient (CLI) | payer MEDICARE, OTHER, SELFPAY ==
[2023-10-06 15:11] LABS: Appearance Urine UA CLEAR; Bilirubin Urine UA NEGATIVE (NEGATIVE); Color Urine UA YELLOW; Glucose Urine UA NEGATIVE (Negative); Ketones Urine UA NEGATIVE (NEGATIVE); Leukocyte Esterase Urine UA TRACE (NEGATIVE); Nitrite Urine UA NEGATIVE (Negative); Occult Blood Urine UA NEGATIVE (Negative); Protein Urine UA 1+ (Negative); Urobilinogen Urine UA 0.2 E.U./dL (0.2)
[2023-10-06 15:18] LABS: Bacteria Urine Few (2-10); Culture Indicated Urine Cult Not Indicated; RBC Urine 0-1/HPF (0-5/HPF); Squamous Epithelial Cell Urine 5-10 /HPF (0-5/HPF); Urine Volume 10mL (spun); WBC Urine 1-5/HPF (0-5/HPF)
[2023-10-06 15:31] LABS: Add Manual Diff / Slide Review NO; Basophils Absolute Auto 0 /uL (0-100); Basophils Percent Auto 0.9 % (0-2); Eosinophils Absolute Auto 0 /uL (0-450); Hematocrit 39.1 % (36-46); Hemoglobin 13.3 g/dL (12.0-16.0); Lymphocytes Absolute Auto 800 /uL (1100-4500); Lymphocytes Percent Auto 14.8 % (25-40); Mean Corpuscular HGB Conc 34.1 % (30-36); Mean Corpuscular Hemoglobin 33.4 PG (26-34); Mean Corpuscular Volume 97.9 fL (80-100); Monocytes Absolute Auto 300 /uL (0-900); Monocytes Percent Auto 5.9 % (3-14); Neutrophils Absolute Auto 3900 /uL (1500-7000); Neutrophils Percent Auto 77.4 % (50-75); Platelet Count 193 X10^3/uL (150-400); Red Blood Cell Count 3.99 X10^6/uL (4.0-5.2); White Blood Cell Count 5.1 X10^3/uL (4.5-11.0)
[2023-10-06 15:45] LABS: Iron 92 ug/dL (37-170)
[2023-10-06 15:47] LABS: Albumin 4.2 g/dL (3.5-5.0); BUN Creatinine Ratio 21.6 (6-22); Blood Urea Nitrogen 33 mg/dL (7-17); Calcium 8.3 mg/dL (8.4-10.2); Carbon Dioxide 27 mmol/L (22-32); Chloride 103 mmol/L (98-107); Estimated Glomerular Filt Rate 34 mL/min (>60); Glucose 134 mg/dL (80-110); HEMOLYSIS < 15 (0-50); Magnesium 2.4 mg/dL (1.6-2.3); Sodium 136 mmol/L (137-145)
[2023-10-06 15:52] LABS: Creatinine Urine Random 55.68 mg/dL; Protein (Total) Urine Random 46 mg/dL (0-12); Protein Creatinine Ratio Urine 0.82 GRAM/24H
[2023-10-06 15:56] LABS: Microalbumin Urine Random 15.4 mg/dL (0-1.6)
[2023-10-06 15:56] LABS: Total Iron Binding Capacity 277 ug/dL (265-497)
[2023-10-06 16:06] LABS: Vitamin D 25 Hydroxy (D3) > 126 ng/mL (30.0-100.0)
[2023-10-06 16:23] LABS: Ferritin 71 ng/mL (11-264)
[2023-10-08 11:39] LABS: Parathyroid Hormone Int 54 pg/mL (15-65)
== END ==
PROVIDERS: Family Provider Family Medicine; PCP Family Medicine; Referring Provider Internal Medicine Nephrology; Visit Provider Internal Medicine Nephrology
DX: E83.42 Hypomagnesemia (principal); N18.32 Chronic kidney disease, stage 3b; N04.9 Nephrotic syndrome with unspecified morphologic changes; N04.1 Nephrotic syndrome with focal and segmental glomerular lesions
CPT/HCPCS: 36415; 80069; 81001; 82043; 82306; 82570; 82728; 83540; 83550; 83735; 83970; 84156; 85025